=== PATIENT | female | born 1955 | race Caucasian/White ===

== ENCOUNTER → 2017-08-08 08:41 | Outpatient (CLI) | payer BC, SELFPAY ==
[2017-08-08 10:18] LABS: ALB/GLOB Ratio 1.1 RATIO (0.9-2.4); AST(SGOT) 38 U/L (15-37); Alanine Aminotransfer ALT/SGPT 32 U/L (13-56); Albumin, Serum 3.7 g/dL (3.2-5.0); Alkaline Phosphatase 98 U/L (45-117); Anion Gap 7 (5-15); BUN 23 mg/dL (7-18); Calcium,Total 8.9 mg/dL (8.5-10.1); Chloride 110 mmol/L (98-107); Creatinine, Serum 0.79 mg/dL (0.55-1.02); EST Glomerular Filtration Rate 78 mL/min (>60); Est Glom Filt Rate - Afr Amer 94 mL/min (>60); Globulin 3.4 g/dL (2.2-4.2); Glucose 87 mg/dL (74-106); Potassium 3.9 mmol/L (3.5-5.1); Protein, Total 7.1 g/dL (6.4-8.2); Sodium Level 144 mmol/L (136-145)
== END ==
PROVIDERS: Family Provider Family Medicine; PCP Family Medicine; Visit Provider Family Medicine
DX: E78.5 Hyperlipidemia, unspecified (principal)
CPT/HCPCS: 36415; 80053

== ENCOUNTER → 2017-11-27 16:11 | Outpatient (CLI) | payer BC, SELFPAY ==
[2017-11-27 18:04] LABS: Anion Gap 7 (5-15); BUN 14 mg/dL (7-18); BUN/Creat Ratio 16.6 RATIO (10-20); Calcium,Total 9.2 mg/dL (8.5-10.1); Chloride 109 mmol/L (98-107); Cholesterol 207 mg/dL (200); Creatinine, Serum 0.84 mg/dL (0.55-1.02); EST Glomerular Filtration Rate 73 mL/min (>60); Est Glom Filt Rate - Afr Amer 88 mL/min (>60); Glucose 89 mg/dL (74-106); High Density Lipoprotein 47 mg/dL; Potassium 4.1 mmol/L (3.5-5.1); Sodium Level 143 mmol/L (136-145); Thyroid Stim Hormone (TSH) 1.68 uIU/mL (0.358-3.74); Triglycerides 162 mg/dL; Very Low Density Lipoprotein 32 mg/dL (5-40)
[2017-11-27 18:11] LABS: Vitamin D,25 Hydroxy 41.5 ng/mL (29.95-100.01)
== END ==
PROVIDERS: Family Provider Family Medicine; PCP Family Medicine; Visit Provider Family Medicine
DX: Z00.00 Encounter for general adult medical examination without abnormal findings (principal)
CPT/HCPCS: 36415; 80048; 80061; 82306; 84443

== ENCOUNTER → 2018-01-02 10:15 | Outpatient (CLI) | payer BC, SELFPAY ==
--- NOTE | 2018-01-02 10:17 | BI_ITS ---
MAMMOGRAPHY - BILATERAL SCREENING REASON FOR EXAM: Female, 62 years old. Routine annual screening examination. PERTINENT HISTORY: Non-contributory. TECHNIQUE: Digital bilateral breast isabela (3D mammographic acquisition) in the CC and MLO projections. 2-D mediolateral oblique (MLO) and craniocaudad (CC) views of both breasts were obtained. CAD: Full Field Digital Mammography with Computer Added Detection was performed. COMPARISON: Comparison is made with prior study dated February 19, 2015 and September 18, 2012. FINDINGS: Breast Composition: There are scattered areas of fibroglandular density. There are no dominant masses or suspicious calcifications. Stable benign-appearing bilateral axillary lymph nodes. No other significant abnormalities are identified. There has been no significant change since the prior study. BI/SCREENING MAMM (CAD), BILAT IMPRESSION: Stable bilateral screening mammogram. Yearly follow-up mammogram recommended. (A) ASSESSMENT CATEGORY: BIRADS Category 2: Benign. A letter regarding these results will be sent to the patient by the facility within 30 days. Approximately 10% of breast cancers are not detected by mammography. A normal mammogram should not delay biopsy of a clinically suspicious abnormality. [id number] Electronically Signed: Sergio Cazares MD at 12:38 EDT Tel [phone], Service support ,
--- NOTE | 2018-01-02 10:23 | BD_ITS ---
STUDY: DUAL ENERGY X-RAY ABSORPTIOMETRY / DXA REASON FOR EXAM: Female, 62 years old. The patient is postmenopausal. Loss of height. TECHNIQUE: Bone Mineral Density (BMD) measurements of lumbar spine and bilateral hips were obtained. COMPARISON: Comparison is made with prior study dated October 28, 2012. FINDINGS: Lumbar Spine (L1-L4): g/cm2 (1.266) / T-score (0.7) / Z-score (2.1) Findings are suggestive of normal bone density with a low fracture risk. Left Femur Total: g/cm2 (1.114) / T-score (0.8) / Z-score (1.9) Left Femoral Neck: g/cm2 (1.013) / T-score (-0.2) / Z-score (1.2) Right Femur Total: g/cm2 (1.029) / T-score (0.2) / Z-score (1.2) Right Femoral Neck: g/cm2 (1.012) / T-score (-0.2) / Z-score (1.2) The T-Scores on the most recent prior examination were: Lumbar Spine (L1-L4): There has been worsening of bone density since the previous examination. Left Femur Total: which represents a worsening of 8.5%. Right Femur Total: which represents a worsening of 11.7%. BD/Dexa Bone Density Study IMPRESSION: The patient is considered normal as outlined below according to World Denny Organization (WHO) criteria with a low fracture risk. There has been worsening of bone density since the previous examination. Reference Information: The T-score is the number of standard deviations above or below the standard which is normal for young adults at their peak bone mineral density. The World Health Organization (WHO) interprets the T-scores as follows: Above -1 Normal bone density Between -1 and -2.5 Osteopenia Equal to / or below -2.5 Osteoporosis As a practical clinical guideline, osteopenia may be graded as follows: Mild -1 through -1.5 Moderate -1.6 through -2.0 Severe -2.1 through -2.4 The Z-score is the number of standard deviations above or below age-matched controls. A Z-score of less than -1.5 would be considered abnormal. References: 1. NIH Osteoporosis and Related Bone Diseases http://www.osteo.org 2. International Society for Clinical Densitometry http://www.iscd.org 3. National Osteoporosis Foundation http://www.nof.org Electronically Signed: Sergio Cazares MD at 13:20 EDT Tel [phone], Service support ,
== END ==
PROVIDERS: Family Provider Family Medicine; PCP Family Medicine; Visit Provider Family Medicine
DX: Z12.31 Encounter for screening mammogram for malignant neoplasm of breast (principal); Z78.0 Asymptomatic menopausal state
CPT/HCPCS: 77063; 77067; 77080

== ENCOUNTER → 2018-02-13 08:41 | Outpatient (CLI) | payer BC, SELFPAY ==
[2018-02-13 11:03] LABS: Anion Gap 7 (5-15); BUN 23 mg/dL (7-18); BUN/Creat Ratio 24.5 RATIO (10-20); Calcium,Total 8.8 mg/dL (8.5-10.1); Chloride 110 mmol/L (98-107); Cholesterol 231 mg/dL (200); Creatinine, Serum 0.94 mg/dL (0.55-1.02); EST Glomerular Filtration Rate 64 mL/min (>60); Est Glom Filt Rate - Afr Amer 78 mL/min (>60); Glucose 82 mg/dL (74-106); High Density Lipoprotein 48 mg/dL; Potassium 4.4 mmol/L (3.5-5.1); Sodium Level 143 mmol/L (136-145); Triglycerides 170 mg/dL; Very Low Density Lipoprotein 34 mg/dL (5-40)
== END ==
PROVIDERS: Family Provider Family Medicine; PCP Family Medicine; Visit Provider Family Medicine
DX: I10 Essential (primary) hypertension (principal)
CPT/HCPCS: 36415; 80048; 80061

== ENCOUNTER → 2018-12-01 09:56 | Outpatient (CLI) | payer BC, SELFPAY ==
[2018-12-01 13:08] LABS: Vitamin D,25 Hydroxy 30.7 ng/mL (29.95-100.01)
[2018-12-01 13:23] LABS: Anion Gap 6 (5-15); BUN 22 mg/dL (7-18); Calcium,Total 9.4 mg/dL (8.5-10.1); Chloride 108 mmol/L (98-107); Cholesterol 205 mg/dL (200); Creatinine, Serum 0.92 mg/dL (0.55-1.02); EST Glomerular Filtration Rate 66 mL/min (>60); Est Glom Filt Rate - Afr Amer 79 mL/min (>60); Glucose 87 mg/dL (74-106); High Density Lipoprotein 48 mg/dL; Potassium 4.3 mmol/L (3.5-5.1); Sodium Level 139 mmol/L (136-145); Triglycerides 155 mg/dL; Very Low Density Lipoprotein 31 mg/dL (5-40)
== END ==
PROVIDERS: Family Provider Family Medicine; PCP Family Medicine; Referring Provider Family Medicine; Visit Provider Family Medicine
DX: Z00.00 Encounter for general adult medical examination without abnormal findings (principal)
CPT/HCPCS: 36415; 80048; 80061; 82306

== ENCOUNTER → 2019-06-03 08:36 | Outpatient (CLI) | payer BC, SELFPAY ==
[2019-06-03 10:06] LABS: Absolute Lymphocyte Count 1.85 X10^3/uL (0.83-4.51); Absolute Neutrophil Count 3.3 X10^3/uL (2.0-7.7); Basophil# 0.08 X10^3/uL; Basophil% 1.3 % (0-1); Eosinophil# 0.35 X10^3/uL; Eosinophils% 5.8 % (0-5); Hematocrit 40.4 % (37-47); Hemoglobin 12.7 g/dL (12.0-15.0); Lymphocyte # 1.85 X10^3/ul (4.0); Lymphocyte % 30.5 % (19-41); Mean Corp Hgb Conc 31.4 g/dL (32-36); Mean Corpuscular Hgb 27.7 pg (27.0-32.0); Mean Corpuscular Volume 88.2 fL (81-99); Mean Platelet Vol. 10.4 fl (6.2-12.0); Monocyte# 0.45 X10^3/uL; Monocyte% 7.4 % (0-10); NRBC Flagged by Analyzer 0 % (0-5); Neutrophil # 3.33 X10^3/uL (2.7-7.7); Neutrophil % 54.8 % (47-70); Platelet Count 287 K/mm3 (150-450); RBC Distribution Width CV 13.7 % (11.6-14.6); Red Blood Count 4.58 M/mm3 (4.2-5.4); White Blood Count 6.1 K/mm3 (4.4-11.0)
[2019-06-03 10:36] LABS: Thyroid Stim Hormone (TSH) 2.68 uIU/mL (0.358-3.74)
== END ==
PROVIDERS: PCP Family Medicine; Referring Provider Family Medicine; Visit Provider Family Medicine
DX: R53.83 Other fatigue (principal)
CPT/HCPCS: 36415; 84443; 85025

== ENCOUNTER → 2019-12-02 09:33 | Outpatient (CLI) | payer MEDICARE, OTHER, SELFPAY ==
--- NOTE | 2019-12-02 09:39 | RAD_ITS ---
STUDY: X-RAY - RIGHT KNEE REASON FOR EXAM: Female, 64 years old. PAIN ENTIRE RIGHT KNEE FOR A LONG TIME GETTING WORSE, MOSTLY ANTERIORLY. NO KNOWN RECENT INJURY. TECHNIQUE: 4 view(s) of the knee. COMPARISON: Prior study of 02/23/2016 FINDINGS: Normal visualized distal femur. Normal visualized proximal tibia and fibula. Normal proximal tibiofibular articulation. There is severe degenerative arthrosis of the medial femorotibial compartment with severe joint space narrowing. There is moderate degenerative arthrosis of the lateral femorotibial compartment with moderate joint space narrowing. There is moderate degenerative arthrosis of the patellofemoral articulation. The soft tissue structures are unremarkable. RAD/Knee 4 or More Views IMPRESSION: Tricompartmental degenerative changes of the right knee most severely affecting the medial knee compartment. There is severe joint space narrowing of the medial knee compartment and moderately severe joint space narrowing of the lateral knee compartment. The degree of degenerative disease has slightly increased in severity from the previous study. Electronically Signed: Isrrael Keller MD at 17:11 EDT , Service support ,
[2019-12-02 12:43] LABS: Anion Gap 4 (5-15); BUN 17 mg/dL (7-18); BUN/Creat Ratio 20.7 RATIO (10-20); Chloride 109 mmol/L (98-107); Creatinine, Serum 0.82 mg/dL (0.55-1.02); EST Glomerular Filtration Rate 74 mL/min (>60); Est Glom Filt Rate - Afr Amer 90 mL/min (>60); Glucose 90 mg/dL (74-106); Sodium Level 141 mmol/L (136-145)
== END ==
PROVIDERS: PCP Family Medicine; Referring Provider Family Medicine; Visit Provider Family Medicine
DX: M17.10 Unilateral primary osteoarthritis, unspecified knee (principal); I10 Essential (primary) hypertension
CPT/HCPCS: 36415; 73564; 80048

== ENCOUNTER → 2020-02-12 13:13 | Outpatient (CLI) | payer MEDICARE, OTHER, SELFPAY ==
--- NOTE | 2020-02-12 13:17 | CT_ITS ---
STUDY: CT SCAN LOWER EXTREMITY RIGHT REASON FOR EXAM: Female, 64 years old. VARUS DEFORMITY, ASHLEY PROTOCOL RADIATION DOSAGE (If Supplied By Facility): CTDIvol = ( 18.76 ) mGy, DLP = ( 1432.85 ) mGycm. Individualized dose optimization techniques were used for this CT.? TECHNIQUE: Multiple axial tomographic images of the right hip joint, right knee joint and right ankle joints were obtained. COMPARISON: None. FINDINGS: Minimal narrowing of the right hip joint. No evidence of fracture or dislocation. There is a marked degree of joint space narrowing in the degeneration involving the medial compartment of the knee joint. Multiple small subchondral cysts are seen in the medial tibial plateau as well as the medial distal femoral condyle. There is also evidence of a moderate degree of joint space narrowing involving the lateral compartment of the knee joint with degenerative spur formation along the lateral aspect of the lateral femoral condyle. Moderate degree of joint space narrowing involving the patellofemoral joint with a spur formation along the anterior aspect of the distal femoral condyle. Multiple tiny cysts are seen in the patella. Imaging of the ankle joint demonstrates small plantar spurs. CT/Extremity Lower without Contra IMPRESSION: Moderate degree of joint space narrowing involving the medial compartment and knee joint as well as a moderate degree of joint space narrowing involving the lateral compartment and patellofemoral joint as described. Electronically Signed: Sergio Cazares, at 14:19 EST , Service support ,
== END ==
PROVIDERS: PCP Family Medicine; Referring Provider Specialist; Visit Provider Specialist
DX: M21.161 Varus deformity, not elsewhere classified, right knee (principal)
CPT/HCPCS: 73700

== ENCOUNTER 2020-03-02 07:14 | Day surgery (SDC) | payer MEDICARE, OTHER, SELFPAY ==
--- NOTE | 2020-02-14 18:38 | PCM.HP.BLA ---
History and Physical History and Physical Patient Name: Kiarra Ochoa : 1955 From: AMADOR BROOKS NP DATE OF SURGERY: 03/02/2020 SCHEDULED PROCEDURE: Right total knee arthroplasty HISTORY OF PRESENT ILLNESS: Preoperative history and physical exam was performed on February 12, 2020. This is a 64-year-old female whose been having ongoing right knee pain for over 2 years. The pain is 4 on a scale of 10 at best and 8 on a scale of 10 with activity. The pain is located along the medial joint line. The pain is made worse with stairs. Patient does report start up pain. The patient notes decreased range of motion in the right knee when compared to the left. The pain does wake her at night. The patient reports inability to perform activities of daily living including getting in and out of the bathtub. The patient underwent a right knee arthroscopy with anterior cruciate ligament repair in 2001. Previous conservative measures attempted consist of a rest, ice, heat, elevation with no relief. The patient has attempted corticosteroid injections and oral naproxen with no relief. The patient has a medical history pertinent for hypertension, hypercholesterolemia and depression. Surgical clearance will be obtained from her primary care provider Dr. Galloway. She denies chest pain, fevers, chills, shortness of breath, to call to breathing or recent infections. After failing conservative measures and discussing treatment options with Dr. Jose Babcock the patient does wish to proceed with a total knee arthroplasty. REVIEW OF SYSTEMS: ROS: Const: Denies anorexia, change in appetite, fever, difficulty sleeping and weight change. CV: Denies chest pain, heart murmur, irregular heartbeat and peripheral vascular disease. Resp: Denies asthma, cough, pneumonia, sleep apnea, shortness of breath, tuberculosis and wheezing. GI: Denies constipation, diarrhea, heartburn, nausea, rectal itching, bloody stools and vomiting. : Denies incontinence. Musculo: Reports pain, but denies leg swelling, trouble walking and weakness. Skin: Reports tattoo, but denies Raynaud's and history of shingles. Neuro: Denies ambulatory dysfunction, dizziness, numbness/tingling and tremor. Psych: Reports stress, but denies anxiety, depression, insomnia and mental illness. Julio C/Lymph: Denies anemia, bleeding/bruising tendency and past transfusion. Reviewed, no changes. PAST MEDICAL HISTORY: Advance Care Plan: No Advance Directives Effective Date: 01/28/2020 PMH: Medical Problems: High Blood Pressure, Hypercholesterolemia, Depression Accidents: None Surgical Hx: Appendectomy - WHILE IN HIGH SCHOOL/[facility] Hysterectomy - [facility]/ DR. JACKSON Knee ACL repair Rt - (2001) [facility] Anesthesia Complications: None Assistive Devices: Glasses Reviewed and updated. 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 Personal Habits: Cigarette Use: Never Smoked Cigarettes.Smokeless Tobacco: Never Used Smokeless Tobacco.E-Cigarette Use: Never used.Alcohol: Denies use.Drug Use: Denies Use.Enjoy Exercising: Exercises 1-3 x/month. Reviewed, no changes. VITALS: Ht: 64 Wt: 207lb Wt k.895 BMI: 35.5 BP: 152/80 Pulse: 98 Resp: 16 T: 97.7 T: 36.5C Pain Level: 4 ALLERGIES: No Known Drug Allergy MEDICATIONS: Oxycodone HCL 5 mg 1-2 tab by mouth every 4 hours, Meloxicam 7.5 mg 1 by mouth twice a day, Famotidine 20 mg 1 by mouth every day, Promethazine HCL 12.5 mg 1-2 tablets by mouth every 6 hours, Losartan Potassium 50 mg 1 by mouth every day, Fluoxetine HCL (PMDD) 20 mg 1 tab daily, Rosuvastatin Calcium 10 mg 1 by mouth every day, Complete Multi-Vitamin , Naproxen 220 mg 6 tablets daily, Aspirin 81 81 mg 1 po qd, Vitamin D3 125 mcg (5000 Ut) 1 po qd PRE-OP EXAM: General appearance:NORMAL Other: Eyes: Conjunctivae and lids: NORMAL Pupils: ERR Ears, Nose, Mouth, and Throat: NORMAL Other: Inspection of lips, teeth and gums: NORMAL Other: Respiratory: Assessment of respiratory effort: NORMAL Other: Auscultation of lungs: clear to auscultation no wheezes, rhonchi or rales. Cardiovascular: Auscultation of heart: regular rate and rhythm, no murmurs, gallops or rubs. Gastrointestinal: Exam of abdomen: soft, nontender, nondistended bowel sounds present. Neurological: see below Psychiatric: Orientation to time, place and person: NORMAL Other: Mood and affect: NORMAL Other: PHYSICAL EXAMINATION: The patient ambulates with a mild antalgic gait. Skin is warm, dry and intact. Moderate effusion. Fullness palpated in the posterior knee. Medial joint line pain and tenderness with palpation. Partially correctable varus alignment. Range of motion is lacks 22 of extension to 95 flexion. Sensation intact to saphenous, sural, deep and superficial peroneal and tibial nerve distributions. IMAGING STUDIES: 4 views of right knee including sunrise and lateral and bilateral weight-bearing AP and tunnel views obtained on January 28, 2020 reviewed reveals varus alignment and medial joint space narrowing, subchondral sclerosis, bony erosion of the medial tibial plateau and osteophyte formation consistent with stage IV erosive severe osteoarthritis. IMPRESSION: 1. Posttraumatic osteoarthritis, right knee 2. Hypertension 3. Hypercholesterolemia 4. Depression PLAN: Dr. Jose Babcock did discuss and review with the patient all treatment options including surgical versus nonsurgical. The patient does wish to proceed with the above-stated procedure. Potential risk, benefits and complications of the procedure were discussed in detail including but not limited to , infection, nerve and blood vessel damage, persistent pain, numbness, tingling, paresthesia, blood clot, pulmonary embolism and requirement for possible further surgery. The patient expressed full understanding and has no further questions for the doctor. The patient does agree to proceed with the above-stated procedure and has signed the surgery consent form. The patient was given prescriptions for the following medications at her preoperative visit: Famotidine, meloxicam, oxycodone and promethazine. She was instructed to picking belt operator [id number] extra strength Tylenol 500 mg, aspirin 81 mg and senna. The patient was instructed to bring a walker with her to the hospital the day of her surgery. Discussed with the patient the risks associated with the COVID-19 virus including the risk of exposure while at the hospital. The patient was reassured local hospitals have low infection rates and taken all necessary precautions to limit patient exposure to COVID-19. Limiting the patient's time in the hospital may decrease their exposure to COVID-19. The patient was notified that we will need to comply with any screening or testing the hospital wishes to perform and that surgery may be delayed for any positive test results. This dictation was created using voice recognition software. Phonetic and/or grammatical errors may exist. ___ I have re-examined the patient. There are no clinical changes since date of exam. ___ See progress notes for changes. ___ Dictated on admission Date: Time: Signature:
--- NOTE | 2020-02-24 10:06 | EKG12_ITS ---
Test Reason : PRE OP Blood Pressure : / mmHG Vent. Rate : 080 BPM Atrial Rate : 080 BPM P-R Int : 150 ms QRS Dur : 080 ms QT Int : 422 ms P-R-T Axes : 056 -33 -03 degrees QTc Int : 486 ms Normal sinus rhythm Left axis deviation Left ventricular hypertrophy Nonspecific ST and T wave abnormality Prolonged QT Abnormal ECG No previous ECGs available Confirmed by SUNSHINE WOODS, XIOMARA ([id number]), managing editor NATALYA PETERSON ([id number]) on 02/26/2020 10:57:47 AM Referred By: Jose Babcock Confirmed By:XIOMARA GONSALEZ MD
[2020-02-24 11:28] LABS: Absolute Lymphocyte Count 1.67 X10^3/uL (0.83-4.51); Absolute Neutrophil Count 3.4 X10^3/uL (2.0-7.7); Basophil# 0.06 X10^3/uL; Eosinophil# 0.37 X10^3/uL; Eosinophils% 6.2 % (0-5); Hematocrit 41.7 % (37-47); Hemoglobin 13.2 g/dL (12.0-15.0); Lymphocyte # 1.67 X10^3/ul (4.0); Lymphocyte % 28.1 % (19-41); Mean Corp Hgb Conc 31.7 g/dL (32-36); Mean Corpuscular Hgb 28.7 pg (27.0-32.0); Mean Corpuscular Volume 90.7 fL (81-99); Mean Platelet Vol. 10.5 fl (6.2-12.0); Monocyte# 0.47 X10^3/uL; Monocyte% 7.9 % (0-10); NRBC Flagged by Analyzer 0 % (0-5); Neutrophil # 3.36 X10^3/uL (2.7-7.7); Neutrophil % 56.5 % (47-70); Platelet Count 283 K/mm3 (150-450); RBC Distribution Width CV 13.2 % (11.6-14.6); RBC Distribution Width SD 43.4 fl (35.1-43.9)
[2020-02-24 12:15] LABS: Anion Gap 4 (5-15); BUN 19 mg/dL (7-18); BUN/Creat Ratio 22.5 RATIO (10-20); Calcium,Total 9.3 mg/dL (8.5-10.1); Chloride 109 mmol/L (98-107); Creatinine, Serum 0.84 mg/dL (0.55-1.02); EST Glomerular Filtration Rate 72 mL/min (>60); Est Glom Filt Rate - Afr Amer 87 mL/min (>60); Glucose 92 mg/dL (74-106); Potassium 4.2 mmol/L (3.5-5.1); Sodium Level 141 mmol/L (136-145)
[2020-03-02] VITALS (11 sets, daily range): BP systolic 88–144; BP diastolic 57–98; PULSE 72–92; RESP 16; TEMP 36.3–36.8; O2SAT 99–100; BMI 35.4
--- NOTE | 2020-03-02 07:08 | RAD_ITS ---
STUDY: X-RAY - RIGHT KNEE REASON FOR EXAM: Female, 64 years old. POST OP RIGHT KNEE TECHNIQUE: 2 view(s) of the knee. COMPARISON: None. FINDINGS: Normal visualized distal femur. Normal visualized proximal tibia and fibula. Normal proximal tibiofibular articulation. There is total knee replacement . Alignment is near-anatomic. There is postoperative change in the soft tissues. There are skin sabina. RAD/Knee 1 or 2 Views IMPRESSION: Right knee replacement. Electronically Signed: Bora Busby MD at 17:11 EST , Service support ,
[2020-03-02] MEDS: Lactated Ringers 1,000 ML 999 ML IV ×2 (08:00→10:43)
[2020-03-02] MEDS: Gabapentin 600 MG Tablet PO (08:15)
[2020-03-02] MEDS: Acetaminophen 500 MG Tablet 1000 MG PO (08:15)
[2020-03-02] MEDS: Scopolamine 1mg/72hr Patch 1 PATCH TRANSDERM. (08:16)
[2020-03-02 08:41] LABS: Bedside Glucose 88 mg/dL (70-110)
[2020-03-02] MEDS: Cefazolin 2 GM in 0.9% Normal Saline 100 ML IV (08:53)
[2020-03-02] MEDS: dexAMETHasone 10 MG/ML Vial IV (09:17)
--- NOTE | 2020-03-02 10:10 | OP.PCM_ITS ---
Report of Operation Date of Procedure: 03/02/20 Pre-Operative Diagnosis: Left knee primary osteoarthritis Post-Operative Diagnosis: Left knee primary osteoarthritis Surgery/Procedure Performed:: Left knee minimally invasive robotic assisted total knee replacement Description of Surgical Findings:: Stable knee with good patella tracking film or videotape editor: Marcial Crump Type of Anesthesia:: Spinal Anesthesiologist: Simone Hollins Special Medications: 2 g Ancef, 1 g TXA at incision, 1 g TXA closure, 10 mg Decadron, joint cocktail (5 mg Duramorph, 30 mL of 0.5% Ropivicaine, 1000 units of epinephrine, 30 mg of Toradol) Estimated Blood Loss (mL): 50 Fluids Replaced: 1000 L crystalloid Description of Procedure: Implants used: 1. [place] size 6 triathlon cruciate retaining distal femoral press-fit component 2. [place] size 4 press-fit tritanium tibial baseplate 3. [place] X3 9 mm CS polyethylene 4. [place] X3 29 mm asymmetric patella Brief history operative indications: 64-year-old f with history of left knee osteoarthritis with radiographic findings with loss of joint space, osteophyte formation and subchondral sclerosis. Failed conservative measures as mentioned in the H&P. Discussion of total knee arthroplasty as well as risk and benefits were discussed the patient including but not limited to blood loss, DVTs, PEs, neurovascular damage, general risk of anesthesia including loss of life, and stiffness or instability were discussed with patient. Patient demonstrated understanding and was able to sign informed consent. Procedure: On the date of procedure patient's left lower extremity was marked in the preoperative area. The patient was then taken back to the operating room where the patient was placed on the table in the supine position. All bony prominences were identified a well-padded. Anesthesia assumed control of the C-spine and airway and remained controlled throughout the remainder of the procedure. A tourniquet was placed on the left upper thigh and the leg was prepped in a sterile fashion. The surgeon then scrubbed at this time .Upon reentering the room left lower extremity was draped in a standard orthopedic fashion. A timeout was then called and everyone agreed upon the side, the site, the procedure to be performed, patient's identity and antibiotics given. Esmarch bandage was used to exsanguinate the extremity and the tourniquet was placed up to 250 mmHg with the knee in flexion. A midline skin incision was made and sharp dissection was taken down through skin subcutaneous tissue and fat. The standard medial parapatellar incision was made and the patella was subluxed laterally. An Appropriate deep MCL release was done and the fat pad was resected. Our attention was then directed to the patella. The patella was everted and a flat resection was made. The knee was then flexed up in 2 femoral pins were placed inside the incision and 2 tibial pins were placed outside the incision in the medial tibia bicortically. Once this was completed the 2 checkpoints in the femur and tibia were placed. Knee was then flexed up and the bony landmarks were registered. Once this was completed knee was taken through range of motion and manually stressed allowing us to a plan for an appropriate tibial cut. The robotic arm was brought into the field sterilely and checkpoint and saw were registered. Based on the patient's deformity the tibial cut was made 3 degrees varus. At this time the tensioner was then placed in the joint and ligament tension was checked at 90 degrees and full extension. Based on the patient's ligamentous tension appropriate adjustments were made to the operative plan and ligament releases were done. Once we were happy with our operative plan with balanced flexion and extension gaps our attention was directed to the femur. The robot was brought into the field sterilely and registered. Posterior condylar cuts, anterior chamfer cuts and anterior cuts were appropriately made for a size 3 femur. When these were completed the saws were switched out in the distal femoral and posterior chamfer cuts were made. Protecting the soft tissue throughout this time. A size 4 tibial base plate was selected. the knee was flexed to 90 degrees and the soft tissues and posterior osteophytes were removed from the joint. 40 cc of the periarticular injection was injected into the posterior medial corner of the joint. The appropriate trials were then placed on the femur and tibia. A trial poly ethylene was trialed to ensure proper balancing and stability of the knee. The appropriate tibial internal rotation was then marked with a bovie. Our attention was then directed to the patella. The lug holes were drilled and the patella trial was placed. Patellar tracking was checked and deemed appropriate. Once we were happy lug holes were drilled for the femur and trial components were removed. the tibia was subluxed and pinned into place and the keel was punched and drilled appropriately. Final components were verified and opened, and cement was mixed in a vacuum. [employer] Simplex cement was used. The wound was copiously irrigated with normal saline. When the cement was ready the components were impacted into place starting with the tibia, femur and finally cementing the patella. The trial poly component was placed and the knee was placed in full extension. All excess cement was removed in the process. Once the cement had cured the tracking, alignment and balance were verified and a size 9 mm CS polyethylene component was placed. Once the final components were placed an Irrisept lavage was performed and the wound was copiously irrigated with normal saline solution and the periarticular injection was given. The wound was closed in a layer caicedo fashion using #1 vicryl interrupted sutures for the arthrotomy, 2-0 interrupted Vicryl suture for the subcuticular layer and sabina for final skin closure. A sterile compressive dressing was then placed. The patient was then awakened from anesthesia, transferred to the [facility] and transferred to the PACU for recovery. Post op plan DVT ppx: ASA 81mg BID, thigh high compression stockings Follow up: in office in 2 weeks for wound check PT: to start POD #0 at hospital, outpatient PT should be arranged. - Complications No intraoperative complications - Admit VTE Documentation VTE Present on Admission: No VTE Mechan Device Prophylaxis: SCD's, Thigh High MALVIN Hose VTE Pharm Prophylaxis ordered?: Yes
[2020-03-02] MEDS: Lactated Ringers 1,000 ML 125 ML IV (12:01)
[2020-03-02] MEDS: Cefazolin 1 GM/50 ML BAG IV (12:30)
== END 2020-03-02 14:04 | disposition home or self-care (01) ==
LOC: SDC 07:15 → AC 07:15
PROVIDERS: Anesthesiology; PCP Family Medicine; Referring Provider Specialist; Visit Provider Specialist
PROC: 0SRC0JZ Replacement of Right Knee Joint with Synthetic Substitute, Open Approach (ICD-10-PCS; CPT 27447; principal; 2020-03-02 08:45)
DX: M17.32 Unilateral post-traumatic osteoarthritis, left knee (principal); I10 Essential (primary) hypertension; E11.9 Type 2 diabetes mellitus without complications; E78.00 Pure hypercholesterolemia, unspecified; F32.9 Major depressive disorder, single episode, unspecified; Z79.1 Long term (current) use of non-steroidal anti-inflammatories (NSAID); Z79.82 Long term (current) use of aspirin; Z79.899 Other long term (current) drug therapy; Z20.828 Contact with and (suspected) exposure to other viral communicable diseases
CPT/HCPCS: 01402; 27447; 36415; 73560; 80048; 82962; 83735; 85025; 87081; 87426; 93005; 97162; C1776; C9803; J7120; J2405

== ENCOUNTER → 2020-03-16 11:27 | Outpatient (CLI) | payer MEDICARE, OTHER, SELFPAY ==
[2020-03-02 07:48] VITALS: BMI 35.4
--- NOTE | 2020-03-16 11:29 | VDLE_ITS ---
Reason For Study: PAIN RIGHT LEFT GSV is normal. CFV is compressible, spontaneous, phasic, CFV is compressible, spontaneous, phasic, competent, and demonstrates normal competent and demonstrates normal augmentation. augmentation. FV is compressible, spontaneous, phasic, competent and demonstrates normal augmentation. POP V is compressible, spontaneous, phasic, competent and demonstrates normal augmentation. T/P Trunk is compressible. PTV is compressible. RT PerV is compressible. Procedure This is a venous duplex using B-mode, color flow and spectral Doppler. Exam performed in department. The exam was diagnostic. A preliminary report was called and/or faxed to Radha Acosta NP-C @[phone] @ 11:50 am. Interpretation Summary Deep veins of the right lower extremity are patent and compressible segmentally. There is no evidence of right lower extremity deep vein thrombosis. Valvular competence appears intact within the proximal deep venous system on the right . The right great saphenous vein appears patent and compressible segmentally. Ordering Physician: Radha Acosta Referring Physician: Shashank Morgan Performed By: Padmaja العراقي, FATIMAH, RVT
== END ==
PROVIDERS: PCP Family Medicine; Referring Provider Registered Nurse; Visit Provider Registered Nurse
DX: M79.661 Pain in right lower leg (principal)
CPT/HCPCS: 93971

== ENCOUNTER → 2020-06-03 09:53 | Outpatient (CLI) | payer MEDICARE, OTHER, SELFPAY ==
[2020-03-02 07:48] VITALS: BMI 35.4
[2020-06-03 13:11] LABS: AST(SGOT) 40 U/L (15-37); Alanine Aminotransfer ALT/SGPT 37 U/L (13-56); Albumin, Serum 3.7 g/dL (3.2-5.0); Alkaline Phosphatase 101 U/L (45-117); Anion Gap 8 (5-15); BUN 17 mg/dL (7-18); BUN/Creat Ratio 19.7 RATIO (10-20); Calcium,Total 9.3 mg/dL (8.5-10.1); Chloride 109 mmol/L (98-107); Cholesterol 217 mg/dL (200); Creatinine, Serum 0.86 mg/dL (0.55-1.02); EST Glomerular Filtration Rate 70 mL/min (>60); Est Glom Filt Rate - Afr Amer 85 mL/min (>60); Globulin 3.7 g/dL (2.2-4.2); Glucose 83 mg/dL (74-106); High Density Lipoprotein 60 mg/dL; Potassium 4.4 mmol/L (3.5-5.1); Protein, Total 7.4 g/dL (6.4-8.2); Sodium Level 141 mmol/L (136-145); Triglycerides 129 mg/dL; Very Low Density Lipoprotein 26 mg/dL (5-40)
== END ==
PROVIDERS: PCP Family Medicine; Referring Provider Family Medicine; Visit Provider Family Medicine
DX: E78.5 Hyperlipidemia, unspecified (principal)
CPT/HCPCS: 36415; 80053; 80061

== ENCOUNTER → 2020-12-02 09:57 | Outpatient (CLI) | payer MEDICARE, OTHER, SELFPAY ==
[2020-12-02 12:38] LABS: Anion Gap 5 (5-15); BUN 16 mg/dL (7-18); BUN/Creat Ratio 19.4 RATIO (10-20); Calcium,Total 8.9 mg/dL (8.5-10.1); Chloride 110 mmol/L (98-107); Cholesterol 211 mg/dL (200); Creatinine, Serum 0.82 mg/dL (0.55-1.02); EST Glomerular Filtration Rate 74 mL/min (>60); Est Glom Filt Rate - Afr Amer 89 mL/min (>60); Glucose 86 mg/dL (74-106); High Density Lipoprotein 50 mg/dL; Potassium 4.2 mmol/L (3.5-5.1); Sodium Level 141 mmol/L (136-145); Triglycerides 162 mg/dL; Very Low Density Lipoprotein 32 mg/dL (5-40)
== END ==
PROVIDERS: PCP Family Medicine; Visit Provider Family Medicine
DX: E78.5 Hyperlipidemia, unspecified (principal)
CPT/HCPCS: 36415; 80048; 80061

== ENCOUNTER → 2020-12-19 11:02 | Outpatient (CLI) | payer MEDICARE, OTHER, SELFPAY ==
--- NOTE | 2020-12-19 11:04 | RAD_ITS ---
STUDY: X-RAY - LEFT ANKLE REASON FOR EXAM: Female, 65 years old. L ankle pain TECHNIQUE: 3 view(s) of the ankle. COMPARISON: None. FINDINGS: Normal visualized distal tibia and fibula. Normal medial and lateral malleoli. Normal tibiotalar articulation and ankle mortise. Plantar spur. The visualized subtalar, talonavicular, calcaneocuboid and tarsal articulations are normal. Soft tissue swelling. RAD/Ankle min 3 Views IMPRESSION: Swelling of the foot. Plantar spur. Electronically Signed: Sergio Cazares MD at 12:17 EDT , Service support ,
== END ==
PROVIDERS: PCP Family Medicine; Referring Provider Family Medicine; Visit Provider Family Medicine
DX: M25.572 Pain in left ankle and joints of left foot (principal)
CPT/HCPCS: 73610

== ENCOUNTER 2021-06-05 09:57 | Outpatient (CLI) | payer MEDICARE, OTHER, SELFPAY ==
[2021-06-05 12:36] LABS: ALB/GLOB Ratio 0.9 RATIO (0.9-2.4); AST(SGOT) 36 U/L (15-37); Alanine Aminotransfer ALT/SGPT 31 U/L (13-56); Albumin, Serum 3.4 g/dL (3.2-5.0); Alkaline Phosphatase 93 U/L (45-117); Anion Gap 5 (5-15); BUN 20 mg/dL (7-18); BUN/Creat Ratio 23.4 RATIO (10-20); Calcium,Total 8.8 mg/dL (8.5-10.1); Chloride 110 mmol/L (98-107); Cholesterol 215 mg/dL (200); Creatinine, Serum 0.86 mg/dL (0.55-1.02); EST Glomerular Filtration Rate 71 mL/min (>60); Est Glom Filt Rate - Afr Amer 85 mL/min (>60); Globulin 3.6 g/dL (2.2-4.2); Glucose 91 mg/dL (74-106); High Density Lipoprotein 48 mg/dL; Potassium 4.1 mmol/L (3.5-5.1); Sodium Level 142 mmol/L (136-145); Triglycerides 162 mg/dL; Very Low Density Lipoprotein 32 mg/dL (5-40)
== END 2021-06-05 23:59 | disposition home or self-care (01) ==
LOC: MFPLAB 10:00
PROVIDERS: PCP Family Medicine; Referring Provider Family Medicine; Visit Provider Family Medicine
DX: E78.5 Hyperlipidemia, unspecified (principal)
CPT/HCPCS: 36415; 80053; 80061

== ENCOUNTER → 2021-12-04 | Outpatient (CLI) | payer MEDICARE, OTHER, SELFPAY ==
[2021-12-04 12:33] LABS: Anion Gap 6 (5-15); BUN 18 mg/dL (7-18); BUN/Creat Ratio 18.1 RATIO (10-20); Calcium,Total 9.2 mg/dL (8.5-10.1); Chloride 107 mmol/L (98-107); Cholesterol 195 mg/dL (200); EST Glomerular Filtration Rate 59 mL/min (>60); Est Glom Filt Rate - Afr Amer 71 mL/min (>60); Glucose 92 mg/dL (74-106); High Density Lipoprotein 47 mg/dL; Potassium 4.1 mmol/L (3.5-5.1); Sodium Level 140 mmol/L (136-145); Triglycerides 143 mg/dL; Very Low Density Lipoprotein 29 mg/dL (5-40)
== END | disposition home or self-care (01) ==
PROVIDERS: PCP Family Medicine; Referring Provider Family Medicine; Visit Provider Family Medicine
DX: I10 Essential (primary) hypertension (principal)
CPT/HCPCS: 36415; 80048; 80061

== ENCOUNTER → 2022-06-22 | Outpatient (CLI) | payer MEDICARE, OTHER, SELFPAY ==
[2022-06-22 18:34] LABS: ALB/GLOB Ratio 1.1 RATIO (0.9-2.4); AST(SGOT) 42 U/L (15-37); Alanine Aminotransfer ALT/SGPT 36 U/L (13-56); Alkaline Phosphatase 91 U/L (45-117); Anion Gap 7 (5-15); BUN 22 mg/dL (7-18); BUN/Creat Ratio 23.4 RATIO (10-20); Calcium,Total 9.4 mg/dL (8.5-10.1); Chloride 110 mmol/L (98-107); Cholesterol 226 mg/dL (200); Creatinine, Serum 0.94 mg/dL (0.55-1.02); EST Glomerular Filtration Rate 63 mL/min (>60); Est Glom Filt Rate - Afr Amer 76 mL/min (>60); Globulin 3.6 g/dL (2.2-4.2); Glucose 89 mg/dL (74-106); High Density Lipoprotein 49 mg/dL; Potassium 4.1 mmol/L (3.5-5.1); Protein, Total 7.6 g/dL (6.4-8.2); Sodium Level 142 mmol/L (136-145); Triglycerides 197 mg/dL; Very Low Density Lipoprotein 39 mg/dL (5-40)
== END | disposition home or self-care (01) ==
LOC: MFPLAB 15:42
PROVIDERS: PCP Family Medicine; Referring Provider Family Medicine; Visit Provider Family Medicine
DX: E78.5 Hyperlipidemia, unspecified (principal)
CPT/HCPCS: 36415; 80053; 80061

== ENCOUNTER → 2022-12-26 | Outpatient (CLI) | payer MEDICARE, OTHER, SELFPAY ==
[2022-12-26 12:43] LABS: Anion Gap 3 (5-15); BUN 15 mg/dL (7-18); BUN/Creat Ratio 15.8 RATIO (10-20); Calcium,Total 9.2 mg/dL (8.5-10.1); Chloride 111 mmol/L (98-107); Cholesterol 219 mg/dL (200); Creatinine, Serum 0.95 mg/dL (0.55-1.02); EST Glomerular Filtration Rate 62 mL/min (>60); Est Glom Filt Rate - Afr Amer 75 mL/min (>60); Glucose 90 mg/dL (74-106); High Density Lipoprotein 43 mg/dL; Potassium 4.4 mmol/L (3.5-5.1); Sodium Level 141 mmol/L (136-145); Triglycerides 168 mg/dL; Very Low Density Lipoprotein 34 mg/dL (5-40)
== END | disposition home or self-care (01) ==
LOC: MFPLAB 10:58
PROVIDERS: PCP Family Medicine; Visit Provider Family Medicine
DX: I10 Essential (primary) hypertension (principal)
CPT/HCPCS: 36415; 80048; 80061

== ENCOUNTER → 2023-06-26 | Outpatient (CLI) | payer MEDICARE, OTHER, SELFPAY ==
[2023-06-26 12:56] LABS: Anion Gap 6 (5-15); BUN 19 mg/dL (7-18); BUN/Creat Ratio 20.4 RATIO (10-20); Calcium,Total 9.8 mg/dL (8.5-10.1); Chloride 109 mmol/L (98-107); Cholesterol 201 mg/dL (200); Creatinine, Serum 0.93 mg/dL (0.55-1.02); EST Glomerular Filtration Rate 63 mL/min (>60); Est Glom Filt Rate - Afr Amer 77 mL/min (>60); Glucose 98 mg/dL (74-106); High Density Lipoprotein 49 mg/dL; Potassium 4.5 mmol/L (3.5-5.1); Sodium Level 142 mmol/L (136-145); Triglycerides 123 mg/dL; Very Low Density Lipoprotein 25 mg/dL (5-40)
== END | disposition home or self-care (01) ==
LOC: MFPLAB 09:48
PROVIDERS: PCP Family Medicine; Visit Provider Family Medicine
DX: I10 Essential (primary) hypertension (principal)
CPT/HCPCS: 36415; 80048; 80061

== ENCOUNTER → 2023-12-27 | Outpatient (CLI) | payer MEDICARE, OTHER, SELFPAY ==
--- NOTE | 2023-12-27 12:34 | BD_ITS ---
STUDY: DUAL ENERGY X-RAY ABSORPTIOMETRY / DXA REASON FOR EXAM: Female, 68 years old. V76.12ScreeningBONE DENSITY REASON FOR EXAM TECHNIQUE: Bone Mineral Density (BMD) measurements of lumbar spine and bilateral hips were obtained. COMPARISON: Comparison is made with prior study January 02, 2018. FINDINGS: Lumbar Spine (L1-L4): g/cm2 (1.063) / T-score (0.1) / Z-score (2.2) Findings are suggestive of normal bone density with a low fracture risk. Left Femur Total: g/cm2 (0.998) / T-score (0.5) / Z-score (1.9) Left Femoral Neck: g/cm2 (0.671) / T-score (-1.6) / Z-score (0.1) Right Femur Total: g/cm2 (0.973) / T-score (0.3) / Z-score (1.7) Right Femoral Neck: g/cm2 (0.691) / T-score (-1.4) / Z-score (0.3) The T-Scores on the most recent prior examination were: Lumbar Spine (L1-L4): There has been worsening of bone density since the previous examination. Left Femur Total: which represents a worsening of 4.4%. Right Femur Total: which represents an improvement of 1.2%. BD/Dexa Bone Density Study IMPRESSION: The patient is considered osteopenic as outlined below according to World Denny Organization (WHO) criteria with a moderate fracture risk. There has been worsening of bone density since the previous examination. Reference Information: The T-score is the number of standard deviations above or below the standard which is normal for young adults at their peak bone mineral density. The World Health Organization (WHO) interprets the T-scores as follows: Above -1 Normal bone density Between -1 and -2.5 Osteopenia Equal to / or below -2.5 Osteoporosis As a practical clinical guideline, osteopenia may be graded as follows: Mild -1 through -1.5 Moderate -1.6 through -2.0 Severe -2.1 through -2.4 The Z-score is the number of standard deviations above or below age-matched controls. A Z-score of less than -1.5 would be considered abnormal. References: 1. NIH Osteoporosis and Related Bone Diseases www osteo.org 2. International Society for Clinical Densitometry www iscd.org 3. National Osteoporosis Foundation www nof.org Electronically Signed: Sergio Cazares MD at 9:30 EDT ,
--- NOTE | 2023-12-27 12:34 | BI_ITS ---
MAMMOGRAPHY - BILATERAL SCREENING REASON FOR EXAM: Female, 68 years old. Routine annual screening examination. PERTINENT HISTORY: Non-contributory. TECHNIQUE: Digital bilateral breast nima (3D mammographic acquisition) in the CC and MLO projections. 2-D mediolateral oblique (MLO) and craniocaudad (CC) views of both breasts were obtained. CAD: Full Field Digital Mammography with Computer Added Detection was performed. COMPARISON: Comparison is made with prior study January 02, 2018 and February 19, 2015. FINDINGS: Breast Composition: There are scattered areas of fibroglandular density. There are no dominant masses or suspicious calcifications. There is a 8.6 mm x 7 mm fat-containing nodule with minimal peripheral calcification in the anterior upper medial aspect of the right breast. There is also evidence of a 9.2 mm x 9.4 mm well-defined fat-containing nodule with peripheral calcification in the anterior upper lateral aspect of the right breast. Stable scattered bilateral microcalcifications. No other significant abnormalities are identified. BI/SCRN MAMM (CAD)W/NIMA BILAT IMPRESSION: Stable bilateral screening mammogram. Yearly follow-up mammogram recommended. (A) ASSESSMENT CATEGORY: BIRADS Category 2: Benign. A letter regarding these results will be sent to the patient by the facility within 30 days. Approximately 10% of breast cancers are not detected by mammography. A normal mammogram should not delay biopsy of a clinically suspicious abnormality. [id number] Electronically Signed: Sergio Cazares MD at 9:08 EDT ,
== END | disposition home or self-care (01) ==
LOC: OPBD 12:32
PROVIDERS: PCP Family Medicine; Referring Provider Registered Nurse; Visit Provider Registered Nurse
DX: Z12.31 Encounter for screening mammogram for malignant neoplasm of breast (principal); Z13.820 Encounter for screening for osteoporosis; Z78.0 Asymptomatic menopausal state
CPT/HCPCS: 77063; 77067; 77080

== ENCOUNTER → 2024-01-03 | Outpatient (CLI) | payer MEDICARE, OTHER, SELFPAY ==
[2024-01-03 13:35] LABS: AST(SGOT) 47 U/L (15-37); Alanine Aminotransfer ALT/SGPT 40 U/L (13-56); Albumin, Serum 3.8 g/dL (3.2-5.0); Alkaline Phosphatase 78 U/L (45-117); Anion Gap 4 (5-15); BUN 18 mg/dL (7-18); BUN/Creat Ratio 18.5 RATIO (10-20); Calcium,Total 9.9 mg/dL (8.5-10.1); Chloride 109 mmol/L (98-107); Cholesterol 225 mg/dL (200); Creatinine, Serum 0.98 mg/dL (0.55-1.02); EST Glomerular Filtration Rate 60 mL/min (>60); Est Glom Filt Rate - Afr Amer 73 mL/min (>60); Globulin 3.9 g/dL (2.2-4.2); Glucose 90 mg/dL (74-106); High Density Lipoprotein 54 mg/dL; Potassium 4.2 mmol/L (3.5-5.1); Protein, Total 7.7 g/dL (6.4-8.2); Sodium Level 141 mmol/L (136-145); Triglycerides 177 mg/dL; Very Low Density Lipoprotein 35 mg/dL (5-40)
== END | disposition home or self-care (01) ==
LOC: MTLAB 10:52
PROVIDERS: PCP Family Medicine; Referring Provider Family Medicine; Visit Provider Family Medicine
DX: I10 Essential (primary) hypertension (principal)
CPT/HCPCS: 36415; 80053; 80061

== ENCOUNTER → 2024-07-01 | Outpatient (CLI) | payer MEDICARE, OTHER, SELFPAY ==
[2024-07-01 12:49] LABS: Absolute Lymphocyte Count 1.97 X10^3/uL (0.83-4.51); Absolute Neutrophil Count 4.8 X10^3/uL (2.0-7.7); Basophil% 1.3 % (0-1); Eosinophil# 0.41 X10^3/uL; Eosinophils% 5.3 % (0-5); Hematocrit 42.7 % (37-47); Hemoglobin 13.9 g/dL (12.0-15.0); Lymphocyte # 1.97 X10^3/ul (0.83-4.51); Lymphocyte % 25.3 % (19-41); Mean Corp Hgb Conc 32.6 g/dL (32-36); Mean Platelet Vol. 10.6 fl (6.2-12.0); Monocyte# 0.45 X10^3/uL; Monocyte% 5.8 % (0-10); NRBC Flagged by Analyzer 0 % (0-5); Neutrophil # 4.84 X10^3/uL (2.7-7.7); Neutrophil % 61.9 % (47-70); Platelet Count 291 K/mm3 (150-450); RBC Distribution Width CV 13.4 % (11.6-14.6); RBC Distribution Width SD 43.7 fl (35.1-43.9); White Blood Count 7.8 K/mm3 (4.4-11.0)
[2024-07-01 13:21] LABS: ALB/GLOB Ratio 1.3 RATIO (0.9-2.4); AST(SGOT) 41 U/L (<=31); Alanine Aminotransfer ALT/SGPT 21 U/L (<=34); Albumin, Serum 4.1 g/dL (3.4-4.8); Alkaline Phosphatase 87 U/L (35-104); Anion Gap 13 (5-15); BUN 17 mg/dL (4-19); BUN/Creat Ratio 16.9 RATIO (10-20); Calcium,Total 9.8 mg/dL (7.6-11.0); Carbon Dioxide 22.7 mmol/L (21.0-32.0); Chloride 107 mmol/L (98-108); Cholesterol 206 mg/dL (<=200); EST Glomerular Filtration Rate 61 (>60); Globulin 3.2 g/dL (2.2-4.2); Glucose 91 mg/dL (70-99); High Density Lipoprotein 49 mg/dL; Low Density Lipoprotein Calc. 126 mg/dL; Potassium 4.4 mmol/L (3.3-5.1); Protein, Total 7.3 g/dL (5.9-8.4); Sodium Level 142 mmol/L (133-145); Triglycerides 157 mg/dL; Very Low Density Lipoprotein 31 mg/dL (5-40); cholesterol:hdl ratio screen 4.22
== END | disposition home or self-care (01) ==
PROVIDERS: PCP Family Medicine; Referring Provider Family Medicine; Visit Provider Family Medicine
DX: E78.5 Hyperlipidemia, unspecified (principal); R53.83 Other fatigue
CPT/HCPCS: 36415; 80053; 80061; 85025

== ENCOUNTER 2024-08-09 11:38 | Inpatient (IN) | payer MEDICARE, OTHER, SELFPAY ==
[2024-08-09] VITALS (8 sets, daily range): BP systolic 144–192; BP diastolic 69–92; PULSE 72–101; RESP 16–19; TEMP 36.3–36.7; O2SAT 97–99; BMI 26.7; BMI 35.2
--- NOTE | 2024-08-09 12:06 | EKG12_ITS ---
Test Reason : NEURO SX Blood Pressure : */* mmHG Vent. Rate : 74 BPM Atrial Rate : 74 BPM P-R Int : 158 ms QRS Dur : 90 ms QT Int : 378 ms P-R-T Axes : 45 -35 -17 degrees QTcB Int : 419 ms Sinus rhythm with Fusion complexes Left axis deviation Moderate voltage criteria for LVH, may be normal variant ( R in aVL , Mayco product ) Nonspecific T wave abnormality Abnormal ECG Confirmed by Prince Horton ([id number]), order editor NATALYA PETERSON ([id number]) on 08/14/2024 1:03:51 PM Referred By: BERENICE/KARTHIK Confirmed By: Prince Horton
--- NOTE | 2024-08-09 12:06 | CT_ITS ---
PROCEDURE: CTA HEAD AND NECK W/ CONTRAST 08/09/2024 REASON FOR EXAM: ACUTE VISION LOSS IN LEFT EYE TECHNIQUE: CTA imaging of the head and neck from the aortic arch to the skull vertex with out contrast and with intravenous contrast. Multiplanar and multisequence images were obtained. 3D post processing was performed CONTRAST: Isovue 370 VOLUME: 100 mL One or more dose reduction techniques were used (e.g., Automated exposure control, adjustment of the mA and/or kV according to patient size, use of iterative reconstruction technique). RADIATION DOSE SUMMARY: CTDlvol: 30 mGy DLP: 800 mGycm COMPARISON: Same-day CT head. FINDINGS: Standard three-vessel aortic arch. No significant calcific plaque. The bilateral vertebral arteries are widely patent without focal stenosis or occlusion. Mixed calcific plaque of the bilateral cervical carotid arteries without focal stenosis or occlusion by NASCET criteria. Calcific plaque of the bilateral carotid siphons without focal stenosis or occlusion. The bilateral anterior, middle and posterior cerebral arteries are widely patent. Calcific plaque of the V4 segment of the right vertebral artery resulting in mild narrowing. No aneurysm or AVM. Major venous structures: Unremarkable. Atretic right transverse sinus, a normal variant. Other findings: Cervical spondylosis. Opacification of a few right ethmoid air cells. CT/CTA Head AND Neck W/ Contrast IMPRESSION: No large vessel occlusion, AVM or aneurysm. Reading Location: [facility]
--- NOTE | 2024-08-09 12:06 | CT_ITS ---
EXAM: STROKE BRAIN/HEAD WITHOUT CONT CLINICAL HISTORY: 68 y/o F with NEURO DEFICIT, ACUTE, STROKE SUSPECTED. COMPARISON: None. TECHNIQUE: Routine CT imaging of the head without IV contrast. Additional multiplanar reformats were obtained. Dose reduction techniques were used including intermediate exposure control (AEC),iterative reconstruction technique, and/or mA and/or KV dose adjustments based on patient's size. FINDINGS: The ventricles and subarachnoid spaces are age-appropriate. Mild scattered supratentorial white matter hypodensities. The chambers-white matter interfaces are otherwise maintained. No acute intracranial herniation or hemorrhage. Prior ocular lens replacements. The mastoids and visualized paranasal sinuses are well-aerated. No acute calvarial fracture or scalp hematoma. CT/STROKE Brain/Head without Cont IMPRESSION: No acute intracranial finding. Reading Location: [id number]
--- NOTE | 2024-08-09 12:08 | EDS_ITS ---
HPI History of Present Illness Chief Complaint: Eye Problem [facility] Medical History (Updated 08/09/24 @ 12:19 by Nalini Anthony) Cataract Hypertension Home Medications ?Medication ?Instructions ?Recorded ?Last Taken ?Type aspirin 81 mg tablet,delayed 81 mg PO DAILY 02/16/20 0 08/09/24 History release fluoxetine 20 mg capsule 20 mg PO DAILY 02/16/2007/31 History multivitamin with minerals 1 ea PO DAILY 02/16/2007/31 History naproxen sodium 220 mg capsule 660 mg PO BID 02/16/20 08/09/24 History ascorbic acid (vitamin C) 500 mg 500 mg PO DAILY 08/0908/09/24 History tablet calcium carbonate 520 mg PO DAILY 08/09/2407/31 History cholecalciferol (vitamin D3) 125 125 mcg PO DAILY 07/3108/09/24 History mcg (5,000 unit) tablet (Vitamin D3) losartan 100 mg tablet 100 mg PO DAILY 08/09/2407/31 History rosuvastatin 20 mg tablet 20 mg PO DAILY 08/09/2407/31 History Allergy/AdvReac Type Severity Reaction Status Date / Time No Known Allergies Allergy Verified 08/09/24 11:42 Social History Smoking Status: Never smoker EXAM Physical Exam Const Vital Signs: 08/09/24 11:39 Temperature 97.3 F L Temperature Source Oral Pulse Rate 101 H Respiratory Rate 19 H Blood Pressure 192/86 H Blood Pressure Mean 121 Pulse Ox 98 Oxygen Delivery Method Room Air [facility] Narrative Medical decision making narrative: HISTORY OF PRESENT ILLNESS: Chief complaint: Painless vision loss in left eye 68-year-old female presents with painless vision loss in left eye. This occurred when she awoke from sleep this morning at 4 AM. Her last known well was 11 PM on 08/08/2024. Denies any falls or trauma. Denies any other focal neurologic deficits including facial drooping, slurred speech, incoordination, loss of movement or sensation in the extremities. No history of stroke. No history of high blood pressure high cholesterol. No recent trauma. No fevers or chills or neck stiffness. REVIEW OF SYSTEMS: Pertinent positives: monocular Vision loss Pertinent negatives: XIE PHYSICAL EXAM: Nursing triage notes reviewed, Vital signs reviewed Constitutional: please see mdm HENT: MMM, no temporal artery tenderness Eyes: Pupils equal round and reactive to light, Extraocular muscles intact Neck: No stridor, no JVD, full neck ROM Lungs: Clear to auscultation, No wheezing or rales. No increased work of breathing, no conversational dyspnea, no accessory muscle use, no nasal flaring. No respiratory distress noted Heart: Regular rate and rhythm, No murmurs, No rubs and No gallops, 2+ distal pulses (radial, femoral, posterior tibial) in all extremities Abdomen: Soft, there is no tenderness, rigidity, rebound or guarding, no obvious peritoneal signs, no palpable pulsatile abdominal masses, no auscultated abdominal bruit : No CVAT Extremities: No edema Neuro: Alert, oriented for space and time, cannot perceive light in left eye, extraocular muscles intact, complete vision loss in left eye chemo visual olson unable to be tested in the left. Remainder of cranial nerves intact. Full strength and sensation in extremities. No signs of ataxia. NIH of 2 for visual loss in left eye. Skin: No rash or lesions noted MEDICAL DECISION MAKING: Chief Complaint: please see HPI External records reviewed: Reviewed prior imaging studies Factors affecting care: hypertension, hyperlipidemia Social determinants of health: denies illicit drug use History obtained from others: Consults: Ophthalmology (Dr. Mireles) Stroke Neurology (Dr. Roberts) recommended against transfer, TNK or thrombectomy Internal Medcine (Dr. Martinez) [facility] Narrative: The patient was initially hypertensive blood pressure 192/86, tachycardic with a heart rate of 101, afebrile. Initial exam with NIH of 2. The patient was not a candidate for TNK as she was outside the 4 and half hour window. Given the CTA of her head neck was negative for large vessel occlusion she is not a candidate for thrombectomy, stroke neurology agrees with this course of action. Since she has gotten ophthalmology evaluation today she does not need transferred for ophthalmology. I considered the following differential diagnosis: CRAO, Acute CVA, TIA, ICH, Mass ALL IMAGES (IF OBTAINED) HAVE BEEN PERSONALLY REVIEWED AND INTERPRETED BY MYSELF. ESR negative CRP negative CT/CTA negative for ICH, mass of LVO EKG with normal sinus rhythm rate of 74, left ax deviation, no intervals, no STEMI, no sign of A-fib CBC without leukocytosis, severe anemia, no thrombocytopenia. No coagulopathy BMP without evidence of significant electrolyte abnormalities, no anion gap, no acute kidney injury. High-sensitivity troponin is negative, no evidence of myocardial ischemia The synthesis of the patient's history, physical exam, labs images suggest likely central retinal artery occlusion. Per [facility] stroke neurology the recommendation is to admit for further stroke workup. Per ophthalmology he is certain the patient is likely some from central retinal artery occlusion. Recommended no acute ophthalmologic surgical procedures. States he would like to see her further stroke workup and see her in the office as an outpatient. Given concern for acute CVA/central retinal artery occlusion will admit for MRI and further risk factor modification. Discussed with hospitalist. The patient and/or family, caregivers express understanding. The patient and/or family, caregivers agrees with the plan. Shared decision making: I will have a discussion with the patient and or visitors regarding risk/benefits of further testing or admission. They will be made aware of of the risk/benefits inherent in this decision they will be given the opportunity to voice understanding. Total critical care time today provided was at least 35 minutes. This excludes separately billable procedures. Critical care time (if documented) is secondary to the patient having high probability of clinically significant/life threatening deterioration in the patient's condition which required my urgent intervention. Impression: 1. CRAO 2. History of hypertension 3. History of hyperlipidemia Dispo: This note was generated with [employer] dictation software. It may contain incorrect words, spelling, and punctuation that were not noted in review of the chart prior to signing. Discharge Plan Triage Chief Complaint: Eye Problem ED Provider: Ashkan Yarbrough Dx/Rx/DC Orders Prescriptions: No Action aspirin 81 MG tablet,delayed release (DR/EC) 81 mg PO DAILY multivitamin with minerals 1 EACH tablet 1 ea PO DAILY fluoxetine 20 MG capsule 20 mg PO DAILY naproxen sodium 220 MG capsule 660 mg PO BID losartan 100 mg tablet 100 mg PO DAILY rosuvastatin 20 mg tablet 20 mg PO DAILY cholecalciferol (vitamin D3) [Vitamin D3] 125 mcg (5,000 unit) tablet 125 mcg PO DAILY ascorbic acid (vitamin C) 500 mg tablet 500 mg PO DAILY calcium carbonate 260 mg calcium (648 mg) tablet 520 mg PO DAILY Primary Care Provider: Shashank Morgan Referrals: Shashank Morgan MD [Primary Care Provider] - Print Language: French
[2024-08-09 12:17] LABS: Absolute Lymphocyte Count 1.81 X10^3/uL (0.83-4.51); Absolute Neutrophil Count 3.7 X10^3/uL (2.0-7.7); Basophil# 0.08 X10^3/uL; Basophil% 1.2 % (0-1); Eosinophil# 0.31 X10^3/uL; Eosinophils% 4.8 % (0-5); Hematocrit 42.5 % (37-47); Hemoglobin 14.5 g/dL (12.0-15.0); Lymphocyte # 1.81 X10^3/ul (0.83-4.51); Lymphocyte % 27.9 % (19-41); Mean Corp Hgb Conc 34.1 g/dL (32-36); Mean Corpuscular Hgb 29.5 pg (27.0-32.0); Mean Corpuscular Volume 86.4 fL (81-99); Mean Platelet Vol. 10.2 fl (6.2-12.0); Monocyte# 0.51 X10^3/uL; Monocyte% 7.9 % (0-10); NRBC Flagged by Analyzer 0 % (0-5); Neutrophil # 3.74 X10^3/uL (2.7-7.7); Neutrophil % 57.7 % (47-70); Platelet Count 264 K/mm3 (150-450); RBC Distribution Width CV 13.2 % (11.6-14.6); RBC Distribution Width SD 40.9 fl (35.1-43.9); Red Blood Count 4.92 M/mm3 (4.2-5.4); White Blood Count 6.5 K/mm3 (4.4-11.0)
[2024-08-09 12:26] LABS: International Normalized Ratio 0.9; Prothrombin Time (Protime)PT. 12.4 SECONDS (11.7-14.9)
[2024-08-09 12:27] LABS: Partial Thromboplast Time 33.1 Seconds (24.1-36.2)
[2024-08-09 12:48] LABS: Anion Gap 10 (5-15); BUN 18 mg/dL (4-19); BUN/Creat Ratio 18.7 RATIO (10-20); Calcium,Total 9.9 mg/dL (7.6-11.0); Carbon Dioxide 21.7 mmol/L (21.0-32.0); Chloride 108 mmol/L (98-108); Creatinine, Serum 0.95 mg/dL (0.70-1.20); EST Glomerular Filtration Rate 65 (>60); Estimated Creatinine Clearance 57.95 ml/min (50-250); Glucose 105 mg/dL (70-99); Potassium 4.5 mmol/L (3.3-5.1); Sodium Level 140 mmol/L (133-145); Troponin T High Sensitivity 10 ng/L (<=14)
--- NOTE | 2024-08-09 13:30 | CM.ED ---
Social Work: Date of referral: 08/09/24 Reason for referral: Stroke Alert lease out worker responded to stroke alert. Patient was leaving room with medical staff shortly after social media manager arrival and social media manager stayed behind to provide support to patient's , Richard, stated patient has a history of cataract surgery and in the early hours of this date, lost vision in her left eye. Patient and Richard went to the eye doctor and was sent here to ensure there are no other medical conditions that would require attention. Richard reported that patient was given a poor prognosis by the eye doctor that patient's vision will ever return to baseline. lease out worker got Richard some ice water per his request and no additional support needed at this time. (end time: 12:10) lease out worker went back to check on patient and Richard and patient stated she was doing fine and was just trying to have patience on waiting for testing results. lease out worker got patient a blanket as well as patient and Richard some ice water with the approval of patient's nurse. No other needs/supports needed at this time. (end time: 13:30) Bernie Macias, COM WRITER, MANAGER DRIVE
[2024-08-09 13:32] LABS: CRP < 3.00 mg/L (0.0-3.0)
[2024-08-09 13:40] LABS: Erythrocyte Sedimentation Rate 20 mm/hr (0-30)
[2024-08-09 15:14] LABS: Troponin T High Sens 2 HR 10 ng/L (<=14)
--- NOTE | 2024-08-09 16:24 | PCM.HP.STD ---
HPI - General General Date of Admission: 08/09/24 HPI Narrative MARIOLA KINSEY, is a 68 F who presents to the hospital with loss of vision in her left eye. She woke up this morning around 4 AM and noticed that she could not see out of her left eye. She was seen by ophthalmology in the outpatient setting and there was concern for central retinal artery occlusion, she has very little pupillary reaction on the left side. No pain but she cannot see out of it she says that it feels that there is a patch over her eye. She says that she never had a stroke before and she was sent to the ER for further evaluation. ESR and CRP are negative ruling out temporal arteritis. CTA of the head and neckIs negative for any major vessel occlusion, AVM or aneurysm. [facility] Medical History (Updated 08/09/24 @ 16:[address] Riley Martinez MD) Cataract Hypertension Home Medications ?Medication ?Instructions ?Recorded ?Last Taken ?Type aspirin 81 mg tablet,delayed 81 mg PO DAILY 02/16/20 08/09/24 History release fluoxetine 20 mg capsule 20 mg PO DAILY 02/16/20 08/09/24 History multivitamin with minerals 1 ea PO DAILY 02/16/20 08/09/24 History naproxen sodium 220 mg capsule 660 mg PO BID 02/16/20 08/09/24 History ascorbic acid (vitamin C) 500 mg 500 mg PO DAILY 08/09/24 08/09/24 History tablet calcium carbonate 520 mg PO DAILY 08/09/24 08/09/24 History cholecalciferol (vitamin D3) 125 125 mcg PO DAILY 08/09/24 08/09/24 History mcg (5,000 unit) tablet (Vitamin D3) losartan 100 mg tablet 100 mg PO DAILY 08/09/24 08/09/24 History rosuvastatin 20 mg tablet 20 mg PO DAILY 08/09/24 08/09/24 History Allergy/AdvReac Type Severity Reaction Status Date / Time No Known Allergies Allergy Verified 08/09/24 11:42 Family History (Updated 08/09/24 @ 16:[address] Riley Martinez MD) Other CVA (cerebral vascular accident) Heart disease Hypertension Myocardial infarction Surgical History (Updated 08/09/24 @ 16:[address] Riley Martinez MD) Status post total knee replacement, right Status post hysterectomy Status post appendectomy Social History Smoking Status: Never smoker ROS Constitutional Constitutional: Denies chills, fatigue, fever(s) or malaise Eyes Eyes: Reports change in vision left; Denies blurry vision ENT HEENT: Denies headache(s) or nasal discharge Cardiovascular Cardiovascular: Denies chest pain, dyspnea on exertion or syncope Respiratory/Chest Respiratory/Chest: Denies cough, shortness of breath at rest or shortness of breath with exertion Gastrointestinal Gastrointestinal: Denies constipation, diarrhea, nausea or vomiting Genitourinary Genitourinary: Denies dysuria Neurologic Neurologic: Denies focal weakness, numbness or tremor(s) Psychiatric Psychiatric: Denies anxiety or depression Vital Signs Vital Signs Vital Signs: 08/09/24 11:39 08/09/24 12:06 08/09/24 12:06 Temperature 97.3 F L Temperature Source Oral Pulse Rate 101 H 78 Respiratory Rate 19 H 18 Blood Pressure 192/86 H 184/92 H Blood Pressure Mean 121 122 Pulse Ox 98 97 98 Oxygen Delivery Method Room Air Room Air Room Air 08/09/24 12:36 08/09/24 13:07 08/09/24 15:00 Temperature Temperature Source Pulse Rate 76 74 78 Respiratory Rate 18 16 18 Blood Pressure 158/74 H 158/74 H 144/69 H Blood Pressure Mean 102 102 94 Pulse Ox 97 97 98 Oxygen Delivery Method Room Air Room Air Room Air 08/09/24 15:44 Temperature 98.0 F Temperature Source Pulse Rate 85 Respiratory Rate 18 Blood Pressure 144/69 H Blood Pressure Mean 94 Pulse Ox 99 Oxygen Delivery Method Weight Weight: 165 lb 14.4 oz Body Mass Index (BMI) 26.7 Physical Exam Narrative General: Alert, Oriented x3, Cooperative, No apparent distress HEENT: Atraumatic, diminished pupillary reaction on the left with no vision on the left, right eye normal Oral: Moist Mucosa Neck: Supple, No JVD Lungs: Clear to auscultation, Normal air movement, No rhonchi, No wheeze, No rales Cardiovascular: Regular rate, Regular Rhythm, Normal S1, Normal S2, No murmurs Abdomen: Soft, Non Tender, Non-Distended, No Hepato-splenomegaly Extremities: No edema, Capillary Refill Less than 3 Seconds Skin: No rashes, No breakdown Musculoskeletal: No Tenderness to Palpation of Joints or Extremities Neurological: No focal neurological deficits, Motor Exam 5/5 strength throughout, Sensory exam intact to light touch and pain Psych/Mental Status: Normal Affect, Appropriate Results Lab / Micro Data 08/09/24 12:10 08/09/24 12:10 Labs: Laboratory Results - last 24 hr 08/09/24 12:10: WBC 6.5, RBC 4.92, Hgb 14.5, Hct 42.5, MCV 86.4, MCH 29.5, MCHC 34.1, RDW Std Deviation 40.9, RDW Coeff of Evans 13.2, Plt Count 264, MPV 10.2, Immature Gran % (Auto) 0.500, Neut % (Auto) 57.7, Lymph % (Auto) 27.9, [place] % (Auto) 7.9, Eos % (Auto) 4.8, Baso % (Auto) 1.2 H, Absolute Neuts (auto) 3.7, Absolute Lymphs (auto) 1.81, Nucleated RBC % 0, ESR 20, PT 12.4, INR 0.9, APTT 33.1, Sodium 140, Potassium 4.5, Chloride 108, Carbon Dioxide 21.7, Anion Gap 10, BUN 18, Creatinine 0.95, Estim Creat Clear Calc 57.95, Est GFR (MDRD) Non-Af 65, BUN/Creatinine Ratio 18.7, Glucose 105 H, Calcium 9.9, Troponin T High Sens 10, C-React Prot Ext Range < 3.00 08/09/24 14:28: Troponin T Hi Sens 2 Hr 10 Imaging Radiology Impression Brain CT 08/09/24 12:06 IMPRESSION: No acute intracranial finding. Reading Location: [facility] Head/Neck CTA 08/09/24 12:06 IMPRESSION: No large vessel occlusion, AVM or aneurysm. Reading Location: [facility] Assessment & Plan Assessment/Plan (1) Central retinal artery occlusion: PLAN: Plan 1. Central retinal artery occlusion ? She was evaluate ophthalmology as an outpatient ? She has complete vision loss on the left with very little pupillary function ? CTA of the head and neck was unremarkable ? Will obtain MRI, continue with aspirin and statin ? Will obtain an echocardiogram ? Will consult neurology ? ESR and CRP are negative 2. Essential HTN/HLD ? Will continue with her Crestor but hold her blood pressure medications to allow permissive hypertension ? Will monitor and make adjustments as necessary 3. Anxiety/depression ? Stable ? Continue with her home medications DVT: SCDs Charges/Coding Visit Charges Inpatient E&M: 52606 Init Hosp L2
--- NOTE | 2024-08-09 16:46 | ECHOD_ITS ---
Reason For Study Reason For Study: TIA/CVA Procedure This was a 2D Doppler, Color Flow transthoracic echocardiogram. Exam performed portable in patient room. Left Ventricle Normal size and thickness. The LV systolic function is normal. EF is 65 %. Stage 1 diastolic dysfunction. Right Ventricle Normal right ventricle. Atria The left and right atria are normal. Mitral Valve Mild mitral annular calcification. Tricuspid Valve Normal tricuspid valve. Trivial tricuspid valve insufficiency. Normal pulmonary artery pressure. Aortic Valve Trisinus/trileaflet aortic valve. Mild-Moderate (1-2+) aortic valve insufficiency. Pulmonic Valve The pulmonic valve is not well visualized. Trivial pulmonic valve insufficiency. Great Vessels Normal sized aortic root. Pericardium/Pleural No pericardial effusion. MMode/2D Measurements & Calculations LVIDd: 5.1 cm IVSd: 0.99 cm Ao root diam: 3.1 cm LVIDs: 3.2 cm LVPWd: 0.97 cm RVDd: 3.0 cm FS: 37.6 % LAV(MOD-bp): 35.2 ml LVAd ap4: 29.2 cm2 SV(MOD-sp4): 52.1 ml LAV(MOD-bp) Indexed: 19.1 ml/m2 LVLd ap4: 7.7 cm SI(MOD-sp4): 28.3 ml/m2 LAV(MOD-sp2): 35.5 ml EDV(MOD-sp4): 91.8 ml LAV(MOD-sp4): 34.9 ml EDV(sp4-el): 94.4 ml LVAs ap4: 17.1 cm2 LVLs ap4: 6.5 cm ESV(MOD-sp4): 39.7 ml ESV(sp4-el): 38.1 ml EF(MOD-sp4): 56.8 % EF(sp4-el): 59.6 % SV(sp4-el): 56.3 ml LA A4 area: 14.6 cm2 LA dimension(2D): 3.2 cm RA A4 area: 11.6 cm2 TAPSE: 1.8 cm Time Measurements MV dec time: 0.26 sec Doppler Measurements & Calculations MV E max chalino: 58.5 cm/sec Lat Peak E' Chalino: 8.4 cm/sec Med Peak E' Chalino: 7.8 cm/sec MV A max chalino: 58.3 cm/sec E/E' lat: 7.0 E/E' med: 7.5 MV E/A: 1.0 Ao V2 max: 168.8 cm/sec AI max chalino: 428.3 cm/sec LV V1 max: 96.5 cm/sec Ao max P.4 mmHg AI max P.4 mmHg LV V1 max P.7 mmHg AI dec slope: 308.2 cm/sec2 AI P1/2t: 407.0 msec PA V2 max: 93.8 cm/sec TR max chalino: 257.9 cm/sec TR max P.6 mmHg ECHO/Echo Complete Interpretation Summary The LV systolic function is normal. EF is 65 %. Stage 1 diastolic dysfunction. Mild-Moderate (1-2+) aortic valve insufficiency. Mild mitral annular calcification. Ordering Physician: Riley Martinez Referring Physician: JOAQUIM MATOS Performed By: Kenzie Gates RDCS
[2024-08-10 01:10] VITALS: BMI 35.2
[2024-08-10 01:15] VITALS: BP 148/77; PULSE 75; RESP 18; TEMP 36.6; O2SAT 99
[2024-08-10 05:15] VITALS: BP 154/81; PULSE 78; RESP 18; TEMP 36.4; O2SAT 97
--- NOTE | 2024-08-10 06:00 | MRI_ITS ---
PROCEDURE: BRAIN WITHOUT CONTRAST (MRIBR), 08/10/2024 REASON FOR EXAM: CVA COMPARISON: 08/09/2024 TECHNIQUE: Multisequence multiplanar MRI brain was performed without intravenous contrast. Contrast: None. FINDINGS: Cerebrum: No acute infarct, visible mass, or definite intracranial hemorrhage identified. Mild/moderate scattered supratentorial white matter abnormalities are nonspecific but compatible with chronic microvascular ischemic changes. Cerebellum: Unremarkable. Brainstem: Unremarkable. Ventricles/extra-axial spaces: Age appropriate appearance. Major flow voids: Better evaluated on recent CTA. Paranasal sinuses: Trace to mild ethmoid mucosal thickening. Scalp/calvarium: Unremarkable. Orbits: Bilateral cataract surgery. Other: None. MRI/Brain without Contrast IMPRESSION: 1. No specific evidence of an acute intracranial process. 2. Additional description as above. Reading Location: [id number]
[2024-08-10 07:04] LABS: Absolute Lymphocyte Count 2.44 X10^3/uL (0.83-4.51); Absolute Neutrophil Count 3.5 X10^3/uL (2.0-7.7); Basophil# 0.06 X10^3/uL; Basophil% 0.9 % (0-1); Eosinophil# 0.43 X10^3/uL; Eosinophils% 6.2 % (0-5); Hematocrit 43.5 % (37-47); Hemoglobin 14.7 g/dL (12.0-15.0); Lymphocyte # 2.44 X10^3/ul (0.83-4.51); Mean Corp Hgb Conc 33.8 g/dL (32-36); Mean Corpuscular Hgb 29.2 pg (27.0-32.0); Mean Corpuscular Volume 86.5 fL (81-99); Mean Platelet Vol. 10.5 fl (6.2-12.0); Monocyte# 0.48 X10^3/uL; Monocyte% 6.9 % (0-10); NRBC Flagged by Analyzer 0 % (0-5); Neutrophil # 3.54 X10^3/uL (2.7-7.7); Neutrophil % 50.7 % (47-70); Platelet Count 277 K/mm3 (150-450); RBC Distribution Width CV 13.3 % (11.6-14.6); RBC Distribution Width SD 41.1 fl (35.1-43.9); Red Blood Count 5.03 M/mm3 (4.2-5.4)
[2024-08-10 08:11] VITALS: BP 145/75; PULSE 81; RESP 16; TEMP 36.7; O2SAT 96
[2024-08-10] MEDS: FLUoxetine 20 MG Capsule PO (08:13)
[2024-08-10] MEDS: Aspirin E.C. 81 MG Tablet PO (08:13)
[2024-08-10] MEDS: Atorvastatin Calcium 40 MG Tablet PO (08:13)
[2024-08-10 10:00] VITALS: BP 159/80; PULSE 88; RESP 16; TEMP 36.7; O2SAT 99
[2024-08-10 10:26] LABS: Anion Gap 9 (5-15); BUN 15 mg/dL (4-19); BUN/Creat Ratio 16.8 RATIO (10-20); Calcium,Total 9.6 mg/dL (7.6-11.0); Carbon Dioxide 23.6 mmol/L (21.0-32.0); Chloride 108 mmol/L (98-108); Cholesterol 220 mg/dL (<=200); Creatinine, Serum 0.91 mg/dL (0.70-1.20); EST Glomerular Filtration Rate 68 (>60); Estimated Creatinine Clearance 62.19 ml/min (50-250); Glucose 92 mg/dL (70-99); High Density Lipoprotein 46 mg/dL; Low Density Lipoprotein Calc. 143 mg/dL; Potassium 4.3 mmol/L (3.3-5.1); Sodium Level 141 mmol/L (133-145); Triglycerides 159 mg/dL; Very Low Density Lipoprotein 32 mg/dL (5-40); cholesterol:hdl ratio screen 4.84
--- NOTE | 2024-08-10 12:19 | CON.PCM.NE_ITS ---
Assessment and Plan: Stroke Assessment/Plan MARIOLA KINSEY is a 68 F with a history of HTN, HLD who presents for evaluation of painless loss of vision in left eye. 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 Neurological examination shows non focal expect left eye poor vision. Neuroimaging shows CTA Negative, MRi Brain No acute stroke, CRP and ESR normal, LDL 143. Work up shows no acute stroke and has CRAO Plan Continue ASA Strict BP control Statin dose increased ECHO report pending. 30 Day Event monitor to r/o other causes of ECHO is negative Thanks for consult Spent 70 minutes in evaluation and management of this patient. HPI Consult Data Date of Consult: 08/10/24 HPI Narrative HPI Narrative: MARIOLA KINSEY, is a 68 F with a history of hypertension, HLD who presents with loss of vision in her left eye. She woke up yesterday morning around 4 AM and noticed that she could not see out of her left eye. She can see only from a small portion of the left eye. She was seen by ophthalmology in the outpatient setting and there was concern for central retinal artery occlusion, she has very little pupillary reaction on the left side. No pain but she cannot see out of it she says that it feels that there is a patch over her eye. She denies having other symptoms like slurred speech, weakness or numbness. ESR and CRP are negative ruling out temporal arteritis. CTA of the head and neck was negative for any major vessel occlusion, AVM or aneurysm. [facility] [place] Medical History (Updated 08/09/24 @ 16:[address] Riley Martinez MD) Cataract Hypertension Home Medications ?Medication ?Instructions ?Recorded ?Last Taken ?Type aspirin 81 mg tablet,delayed 81 mg PO DAILY 02/16/20 0 08/09/24 History release multivitamin with minerals 1 ea PO DAILY 02/16/2007/31 History naproxen sodium 220 mg capsule 660 mg PO BID 02/16/20 08/09/24 History ascorbic acid (vitamin C) 500 mg 500 mg PO DAILY 08/0908/09/24 History tablet calcium carbonate 520 mg PO DAILY 08/09/2407/31 History cholecalciferol (vitamin D3) 125 125 mcg PO DAILY 07/3108/09/24 History mcg (5,000 unit) tablet (Vitamin D3) losartan 100 mg tablet 100 mg PO DAILY 08/09/2407/31 History rosuvastatin 20 mg tablet 20 mg PO DAILY 08/09/2407/31 History Allergy/AdvReac Type Severity Reaction Status Date / Time No Known Allergies Allergy Verified 08/09/24 11:42 Family History (Updated 08/09/24 @ 16:[address] Riley Martinez MD) Other CVA (cerebral vascular accident) Heart disease Hypertension Myocardial infarction Surgical History (Updated 08/09/24 @ 16:[address] Riley Martinez MD) Status post total knee replacement, right Status post hysterectomy Status post appendectomy Social History Smoking Status: Never smoker Vital Signs Vital Signs Vital Signs: 08/09/24 12:36 08/09/24 13:07 08/09/24 15:00 Temperature Temperature Source Pulse Rate 76 74 78 Pulse Strength Respiratory Rate 18 16 18 Respiratory Effort Respiratory Depth Respiratory Pattern Blood Pressure 158/74 H 158/74 H 144/69 H Blood Pressure Mean 102 102 94 Blood Pressure Source Blood Pressure Position Blood Pressure Location Pulse Ox 97 97 98 Oxygen Delivery Method Room Air Room Air Room Air 08/09/24 15:44 08/09/24 17:00 08/09/24 17:15 Temperature 98.0 F 97.3 F L Temperature Source Temporal Pulse Rate 85 72 Pulse Strength Normal (2+) Respiratory Rate 18 18 Respiratory Effort Respiratory Depth Respiratory Pattern Blood Pressure 144/69 H 154/75 H Blood Pressure Mean 94 101 Blood Pressure Source Monitor Blood Pressure Position Semi-Fowlers Blood Pressure Location Right Forearm Pulse Ox 99 99 Oxygen Delivery Method Room Air 08/09/24 17:26 08/09/24 21:15 08/09/24 21:33 Temperature 97.3 F L Temperature Source Temporal Pulse Rate 80 Pulse Strength Respiratory Rate 18 Respiratory Effort Normal Non-Labored Normal Non-Labored Respiratory Depth Normal Normal Respiratory Pattern Normal Normal Blood Pressure 169/78 H Blood Pressure Mean 108 Blood Pressure Source Monitor Blood Pressure Position Semi-Fowlers Blood Pressure Location Right Arm Pulse Ox 97 Oxygen Delivery Method Room Air Room Air Room Air 08/09/24 21:42 08/10/24 01:15 08/10/24 01:20 Temperature 97.8 F Temperature Source Temporal Pulse Rate 75 Pulse Strength Normal (2+) Respiratory Rate 18 Respiratory Effort Normal Non-Labored Respiratory Depth Normal Respiratory Pattern Normal Blood Pressure 148/77 H Blood Pressure Mean 100 Blood Pressure Source Monitor Blood Pressure Position Semi-Fowlers Blood Pressure Location Right Forearm Pulse Ox 99 Oxygen Delivery Method Room Air Room Air 08/10/24 05:15 08/10/24 08:11 08/10/24 11:16 Temperature 97.5 F L 98.0 F Temperature Source Temporal Oral Pulse Rate 78 81 Pulse Strength Respiratory Rate 18 16 Respiratory Effort Respiratory Depth Respiratory Pattern Blood Pressure 154/81 H 145/75 H Blood Pressure Mean 105 98 Blood Pressure Source Monitor Monitor Blood Pressure Position Semi-Fowlers Semi-Fowlers Blood Pressure Location Right Forearm Left Arm Pulse Ox 97 96 Oxygen Delivery Method Room Air Room Air Room Air Weight Weight: 90.2 kg Body Mass Index (BMI) 35.2 Physical Exam Const alert, oriented x3 and no apparent distress Neuro Neuro Narrative: Awake, alert 0riented X3 CN 2-12 intact Speech fluent, no aphasia Poor vision in left eye. Motor 5/5 Sensation: Intact No ataxia Lab / Micro Data 08/10/24 06:17 08/10/24 06:17 Labs: Laboratory Results - last 24 hr 08/09/24 12:10: ESR 20, PT 12.4, INR 0.9, APTT 33.1, Sodium 140, Potassium 4.5, Chloride 108, Carbon Dioxide 21.7, Anion Gap 10, BUN 18, Creatinine 0.95, Estim Creat Clear Calc 57.95, Est GFR (MDRD) Non-Af 65, BUN/Creatinine Ratio 18.7, G lucose 105 H, Calcium 9.9, Troponin T High Sens 10, C-React Prot Ext Range < 3.00 08/09/24 14:28: Troponin T Hi Sens 2 Hr 10 08/10/24 06:17: WBC 7.0, RBC 5.03, Hgb 14.7, Hct 43.5, MCV 86.5, MCH 29.2, MCHC 33.8, RDW Std Deviation 41.1, RDW Coeff of Evans 13.3, Plt Count 277, MPV 10.5, Immature Gran % (Auto) 0.300, Neut % (Auto) 50.7, Lymph % (Auto) 35.0, Churchill % (Auto) 6.9, Eos % (Auto) 6.2 H, Baso % (Auto) 0.9, Absolute Neuts (auto) 3.5, Absolute Lymphs (auto) 2.44, Nucleated RBC % 0, Sodium 141, Potassium 4.3, Chloride 108, Carbon Dioxide 23.6, Anion Gap 9, BUN 15, Creatinine 0.91, Estim Creat Clear Calc 62.19, Est GFR (MDRD) Non-Af 68, BUN/Creatinine Ratio 16.8, Glucose 92, Calcium 9.6, Triglycerides 159, Cholesterol 220 H, LDL Cholesterol, Calc 143, VLDL Cholesterol 32, HDL Cholesterol 46, Cholesterol/HDL Ratio 4.84 Imaging Radiology Impression Brain CT 08/09/24 12:06 IMPRESSION: No acute intracranial finding. Reading Location: [facility] Head/Neck CTA 08/09/24 12:06 IMPRESSION: No large vessel occlusion, AVM or aneurysm. Reading Location: [facility] Brain MRI 08/10/24 06:00 IMPRESSION: 1. No specific evidence of an acute intracranial process. 2. Additional description as above. Reading Location: [facility] Active Medications Active Medications Active Medications: Current Medications Generic Name Dose Route Start Last Admin Trade Name Freq PRN Reason Stop Dose Admin Aspirin 81 mg 08/10/24 08:00 08/10/24 08:13 Aspirin E.C. 81 Mg Tablet PO 81 mg BREAKFAST WILLIAM Administration Atorvastatin Calcium 40 mg 08/10/24 10:00 08/10/24 08:13 Atorvastatin Calcium 40 Mg Tablet PO 40 mg DAILY WILLIAM Administration Fluoxetine HCl 20 mg 08/10/24 10:00 08/10/24 08:13 Fluoxetine 20 Mg Capsule PO 20 mg DAILY WILLIAM Administration Hydralazine HCl 5 mg 08/09/24 16:46 Hydralazine 20 Mg/Ml Vial IV 08/10/24 16:46 Q30M PRN maintain BP parameters with HR <60 Labetalol HCl 10 - 20 mg 08/09/24 16:46 Labetalol 20mg/4ml Syringe IV 08/10/24 16:46 Q10M PRN PRN maintain BP parameters with HR >/=60 Sodium Chloride 10 - 40 ml 08/09/24 17:03 0.9% Saline Lock 10 Ml Syringe IV UD PRN SALINE FLUSH NIHSS NIHSS Nursing Documentation NIHSS Nursing Documentation: NIH Stroke Scale Start: 08/09/24 11:56 Freq: Status: Discharge Protocol: Activity Type Activity Date Activity User E-sign Co-sign Detail Recorded Client Recorded Date Recorded By Document 08/09/24 11:55 [id number] 08/09/24 12:05 08/09/24 11:55 NIH Stroke Scale [NIHSS] A score of 0 is normal or asymptomatic . Total possible score is 42. Inpatient: RN or Physician to activate a stroke alert for onset of new stroke symptoms or with NIHSS increase >/= 3 points. Following change in neurological status, NIHSS will be performed per physician order or more frequently PRN. -1a. Level of Consciousness 0 - Alert; keenly responsive -1b. LOC Questions 0 - Answers BOTH questions correctly -1c. LOC Commands 0 - Performs BOTH tasks correctly -2. Best Gaze 0 - Normal -3. Visual 2 - Complete hemianopia -4. Facial Palsy 0 - Normal symmetrical movements -5a. Left Arm 0 - No drift; arm holds 90 ( or 45) degrees for full 10 seconds -5b. Right Arm 0 - No drift; arm holds 90 ( or 45) degrees for full 10 seconds -6a. Left Leg 0 - No drift; leg holds 30- degree position for full 5 seconds -6b. Right Leg 0 - No drift; leg holds 30- degree position for full 5 seconds -7. Limb Ataxia 0 - Absent -8. Sensory 0 - Normal; no sensory loss -9. Best Language 0 - No aphasia; normal -10. Dysarthria 0 - Normal -11. Extinction and Inattention 0 - No abnormality -Total 2 Query Text:A score of 0 is normal or asymptomatic. Total possible score is 42 . ED: Notify Physician for NIHSS increase by > / = 3 points. Inpatient: RN or Physician to activate a stroke alert for NIHSS increase of > / = 3 points. NIHSS: Ischemic Stroke/TIA Start: 08/09/24 16:46 Text: For PCU Patients: NIH and Neuro Check every 4 Status: Active hours, PRN and with change in RN caregiver. Freq: [id number] Protocol: Activity Type Activity Date Activity User E-sign Co-sign Detail Recorded Client Recorded Date Recorded By Document 08/10/24 10:00 RV desktop 08/10/24 11:56 RV 08/10/24 10:00 -1a. Level of Consciousness 0 - Alert; keenly responsive -1b. LOC Questions 0 - Answers BOTH questions correctly -1c. LOC Commands 0 - Performs BOTH tasks correctly -2. Best Gaze 0 - Normal -3. Visual 2 - Complete hemianopia -4. Facial Palsy 0 - Normal symmetrical movements -5a. Left Arm 0 - No drift; arm holds 90 ( or 45) degrees for full 10 seconds -5b. Right Arm 0 - No drift; arm holds 90 ( or 45) degrees for full 10 seconds -6a. Left Leg 0 - No drift; leg holds 30- degree position for full 5 seconds -6b. Right Leg 0 - No drift; leg holds 30- degree position for full 5 seconds -7. Limb Ataxia 0 - Absent -8. Sensory 0 - Normal; no sensory loss -9. Best Language 0 - No aphasia; normal -10. Dysarthria 0 - Normal -11. Extinction and Inattention 0 - No abnormality -Total 2 Query Text:A score of 0 is normal or asymptomatic. Total possible score is 42 . ED: Notify Physician for NIHSS increase by > / = 3 points. Inpatient: RN or Physician to activate a stroke alert for NIHSS increase of > / = 3 points. Coma Scale [Assess] -Eye Opening Spontaneous -Motor Obeys Commands -Verbal Oriented [Total] -Coma Scale Total 15 NIHSS 1a. Level of Consciousness: 0 - Alert; keenly responsive 1b. LOC Questions: 0 - Answers BOTH questions correctly 1c. LOC Commands: 0 - Performs BOTH tasks correctly 2. Best Gaze: 0 - Normal 3. Visual: 0 - No visual loss 4. Facial Palsy: 0 - Normal symmetrical movements 5a. Left Arm: 0 - No drift; arm holds 90 (or 45) degrees for full 10 seconds 5b. Right Arm: 0 - No drift; arm holds 90 (or 45) degrees for full 10 seconds 6a. Left Le - No drift; leg holds 30-degree position for full 5 seconds 6b. Right Le - No drift; leg holds 30-degree position for full 5 seconds 7. Limb Ataxia: 0 - Absent 8. Sensory: 0 - Normal; no sensory loss 9. Best Language: 0 - No aphasia; normal 10. Dysarthria: 0 - Normal 11. Extinction and Inattention: 0 - No abnormality Total: 0
--- NOTE | 2024-08-10 12:58 | DS.PCM_ITS ---
Providers Date of Admission: 08/09/24 Date of Discharge: 08/10/24 Primary Care Physician: Dr. Shashank Matos MD Consultations 08/09/24 16:46 Consult: Tele-Neurology Routine Consulting Provider: [facility] Reason for Consult: Acute Ischemic Stroke/TIA EMERGENT Consult: No MD Notified: Yes Date Notified: 08/09/24 Time Notified: 16:08 Method of Notification: Answering Service Nursing Unit Staff Notify [facility] of Tele-Neurology Consult: Yes Reason For Visit: CRAO Diagnosis Discharge Diagnosis (1) Central retinal artery occlusion: Status: Acute Code(s): H34.10 - Central retinal artery occlusion, unspecified eye Medications at Discharge Home Medications aspirin 81 mg tablet,delayed release 81 mg PO DAILY 02/16/20 multivitamin with minerals 1 ea PO DAILY 02/16/20 naproxen sodium 220 mg capsule 660 mg PO BID 02/16/20 ascorbic acid (vitamin C) 500 mg tablet 500 mg PO DAILY 08/09/24 calcium carbonate 520 mg PO DAILY 08/09/24 cholecalciferol (vitamin D3) 125 mcg (5,000 unit) tablet (Vitamin D3) 125 mcg PO DAILY 08/09/24 losartan 100 mg tablet 100 mg PO DAILY 08/09/24 rosuvastatin 20 mg tablet 20 mg PO DAILY 08/09/24 Hospital Course Operations None Procedures 2-D Echocardiogram Summary of Care Provided Minutes Spent on Discharge: 45 Hospital Course: Patient is a 68-year-old female with past medical history as outlined who was admitted to the ED on 08/09/2024 with complaint of loss of vision in her left eye. She woke up around 4 AM on the day of presentation and noticed she could not see out of her left eye. She had been seen by ophthalmology in the outpatient setting and there was concern for central retinal artery occlusion so she was brought into the ED to rule out a stroke. ESR and CRP were not elevated. CT of the brain showed no acute intracranial pathology and CT of the head and neck were negative for any major vessel occlusion. She had MRI of the brain which showed no evidence of stroke. Neurology reviewed patient and recommended continuing aspirin and for her to be discharged on a 30-day event monitor to look out for any arrhythmia. 2D echo done showed EF of 65% with stage I diastolic dysfunction and normal left ventricular systolic function with mild mitral annular calcification. Patient was discharged home on 08/10/2024. She is to follow-up with her primary care doctor and was referred to neurology on outpatient basis also. She was discharged with a 30-day event monitor. Patient seen and examined prior to discharge. She had no active complaints. She still has a loss of vision in her left eye. Review of systems otherwise negative. Labs and vitals reviewed. Home medication reviewed and reconciled. Physical Exam Const alert, oriented x3 and no apparent distress General Appearance: cooperative, comfortable and well kempt Orientation / Consciousness: awake Exam Limitations: no limitations HEENT normocephalic, head/scalp atraumatic, hearing grossly normal bilaterally, moist oral mucous membranes and oropharynx normal Mouth: oral and palatal mucosa normal and dry mucous membranes Eyes Eyes Narrative: loss of vision in left eye. Neck no lymphadenopathy, supple and no JVD Resp normal respiratory effort, no retractions, no use of accessory muscles and clear to auscultation bilaterally Cardio regular rate, regular rhythm, S1 normal heart sound, S2 normal heart sound and no murmurs GI normal to inspection, nondistended, normoactive bowel sounds, soft to palpation, non-tender and non-distended Extremity normal to inspection, full ROM and no clubbing, cyanosis or edema Skin no rashes or lesions noted Neuro oriented x3, CN's II-XII intact bilaterally, moves all extremities and no focal motor deficits Sensorium / Orientation: awake and alert Motor Exam: strength 5/5 throughout Psych affect normal Weight / BMI Weight Weight: 198 lb 13.711 oz Body Mass Index (BMI) 35.2 ABG / Lab / Microbiology Data 08/10/24 06:17 08/10/24 06:17 Laboratory: Laboratory Results - last 24 hr 08/10/24 06:17: WBC 7.0, RBC 5.03, Hgb 14.7, Hct 43.5, MCV 86.5, MCH 29.2, MCHC 33.8, RDW Std Deviation 41.1, RDW Coeff of Evans 13.3, Plt Count 277, MPV 10.5, Immature Gran % (Auto) 0.300, Neut % (Auto) 50.7, Lymph % (Auto) 35.0, Cassia % (Auto) 6.9, Eos % (Auto) 6.2 H, Baso % (Auto) 0.9, Absolute Neuts (auto) 3.5, Absolute Lymphs (auto) 2.44, Nucleated RBC % 0, Sodium 141, Potassium 4.3, Chloride 108, Carbon Dioxide 23.6, Anion Gap 9, BUN 15, Creatinine 0.91, Estim Creat Clear Calc 62.19, Est GFR (MDRD) Non-Af 68, BUN/Creatinine Ratio 16.8, Glucose 92, Calcium 9.6, Triglycerides 159, Cholesterol 220 H, LDL Cholesterol, Calc 143, VLDL Cholesterol 32, HDL Cholesterol 46, Cholesterol/HDL Ratio 4.84 Radiography Diagnostic Testing: Radiology Impression Echocardiogram 08/09/24 16:46 Interpretation Summary The LV systolic function is normal. EF is 65 %. Stage 1 diastolic dysfunction. Mild-Moderate (1-2+) aortic valve insufficiency. Mild mitral annular calcification. Ordering Physician: Riley Martinez Referring Physician: SHASHANK MATOS Performed By: Kenzie Gates RDCS Brain MRI 08/10/24 06:00 IMPRESSION: 1. No specific evidence of an acute intracranial process. 2. Additional description as above. Reading Location: [facility] D/C Instructions Discharge Diet: Low fat / Low cholesterol Discharge Activity: Return to Normal Activity Weight Bearing Status: Weight bearing as tolerated Call your doctor if you observe: Fever of 101 or Higher, Shortness of breath, Dizziness, Swelling in the ankles and Chest pain DC O2, CPAP, BIPAP Needs Home O2 Discharge instructions: No DC home with Oxygen: No Meaningful Use Info Meaningful Use Meaningful Use Diagnoses (Choose all that apply): None applicable Ischemic Stroke Statin Dosing Therapy Reference: STATIN DOSE THERAPY REFERENCE: * Patients > 75 years receive moderate or high dose statin therapy. * Patients 75 years or YOUNGER should receive HIGH intensity statin dose unless contraindicated. You will be required to document reason for non-treatment if statin daily dose does not meet guidelines. HIGH DOSE STATIN THERAPY DAILY Atorvastatin > than or = to 40 mg Rosuvastatin > than or = to 20 mg Amlodipine + Atorvastatin > than or = to 2.5/40 mg Ezetimibe + Simvastatin 10/80 mg Simvastatin 80mg Discharge Plan Admission Admit Date/Time: 08/09/24 16:07 Primary Reason for Your Visit: left eye vision loss Attending Provider: Sierra Madrid Primary Care Provider: Shashank Matos Consulting Providers: Kj Gustafson; Jackie Jesus; Ainsley Ritter; Nan Tuttle; Siria Basurto; Gadiel White; Eli Marcos; Maximino Ruelas; Yo Butt; Abhijit Garrett; Mackenzie Torres; Adrian Aguilar; Judy Holguin; Salma Israel; Uma Foy; Bijan Cabrera; Blossom Alfred; Jonah Coley; Danuta Roberts; Mg Sauer; Riley Martinez Instructions Patient Instructions: Central Retinal Artery Occlusion Discharge Orders/Prescriptions Prescriptions: Continued aspirin 81 MG tablet,delayed release (DR/EC) 81 mg PO DAILY multivitamin with minerals 1 EACH tablet 1 ea PO DAILY naproxen sodium 220 MG capsule 660 mg PO BID losartan 100 mg tablet 100 mg PO DAILY rosuvastatin 20 mg tablet 20 mg PO DAILY cholecalciferol (vitamin D3) [Vitamin D3] 125 mcg (5,000 unit) tablet 125 mcg PO DAILY ascorbic acid (vitamin C) 500 mg tablet 500 mg PO DAILY calcium carbonate 260 mg calcium (648 mg) tablet 520 mg PO DAILY Other Ambulatory Orders: 30 Day Event Recorder Preventi (Urgent) Timeframe: 1 Day Facility: [facility] - Location: Cardiovascular Services Ordered By: Dr. Sierra Madrid Referrals / Follow Up: Shashank Matos MD [Primary Care Provider] - Within 1 Week Booker Murrell MD [Non-Staff -Ordering Privileges] - Within 2 Weeks Disposition Disposition (needs filled in before D/C Order can be placed): Home, Self Care Charges/Coding Visit Charges Inpatient E&M: 39677 Disch Hosp >30min
--- NOTE | 2024-08-10 13:17 | CASEMGMT ---
SW did not complete a PHQ 9 as patient did not have a Stroke or TIA, Yamila COLUNGA
--- NOTE | 2024-08-10 13:33 | PHA.DC.MR.R ---
Pharmacy [place] Med Reconciliation Pharmacy Service has performed discharge medication reconciliation for this patient. The patient's discharge medication list was reviewed for discrepancies and discrepancies were resolved. Medications at Discharge Home Medications aspirin 81 mg tablet,delayed release 81 mg PO DAILY 02/16/20 multivitamin with minerals 1 ea PO DAILY 02/16/20 naproxen sodium 220 mg capsule 660 mg PO BID 02/16/20 ascorbic acid (vitamin C) 500 mg tablet 500 mg PO DAILY 08/09/24 calcium carbonate 520 mg PO DAILY 08/09/24 cholecalciferol (vitamin D3) 125 mcg (5,000 unit) tablet (Vitamin D3) 125 mcg PO DAILY 08/09/24 losartan 100 mg tablet 100 mg PO DAILY 08/09/24 rosuvastatin 20 mg tablet 20 mg PO DAILY 08/09/24
[2024-08-10 13:58] VITALS: BMI 35.2
--- NOTE | 2024-08-10 14:03 | CASEMGMT ---
IZABELLA HARVEY Assessment Face to Face with patient for initial transition planning/care coordination assessment. IZABELLA HARVEY introduced self and role at [facility], pt voices understanding. Pt is A&Ox4 and is resting comfortably in bed and is calm. Pt at bedside. Care providers, pharmacy, and demographics verified. Admitting dx: KIM FAM Strata: 1 PCP: Shashank Morgan Specialists: Aline (Air Quality Consultant) Preferred Pharmacy: [facility] Insurance: MCR A/B, MMO Prescription Benefit: Yes LNOK: Richard (H) Living Arrangements: Pt lives with her SO, Son, DIL, and 3 grandchildren (ages 7,13, & 17) in a 2 story home with 2 steps to enter ADLs/IADLs: Independent Transportation: Self, . Denies concerns DME: Access to a W/C, FWW, BSC, and hospital bed but does not use. HHC/SNF: denies hx or needs Pt?s goal: Home Plan: Home with pt and to follow up with the eye doctor. No additional needs noted. Pt denies further questions or concerns at this time and states that she feels safe with this plan and denies further needs. Report given to WINE PASTEURIZER CM. Ra Whiting
== END 2024-08-10 14:06 | disposition home or self-care (01) | DRG 125 ==
LOC: ED 12:11 → PCU 16:22
PROVIDERS: Admitting Provider Family Medicine; Emergency Provider Emergency Medicine; PCP Family Medicine; Visit Provider Student in an Organized Health Care Education/Training Program
DX: H34.12 Central retinal artery occlusion, left eye (principal); I50.30 Unspecified diastolic (congestive) heart failure; E78.5 Hyperlipidemia, unspecified; I11.0 Hypertensive heart disease with heart failure; F32.A Depression, unspecified; I34.81 Nonrheumatic mitral (valve) annulus calcification; F41.9 Anxiety disorder, unspecified; H54.62 Unqualified visual loss, left eye, normal vision right eye; I35.0 Nonrheumatic aortic (valve) stenosis; Z90.710 Acquired absence of both cervix and uterus; Z79.82 Long term (current) use of aspirin; Z82.49 Family history of ischemic heart disease and other diseases of the circulatory system; Z79.02 Long term (current) use of antithrombotics/antiplatelets; Z79.899 Other long term (current) drug therapy
CPT/HCPCS: 36415; 70450; 70496; 70498; 70551; 80048; 80061; 84484; 85025; 85610; 85652; 85730; 86140; 93005; 93306; 97161; 97165; 99285; Q9967

== ENCOUNTER → 2024-11-20 | Outpatient (CLI) | payer MEDICARE, OTHER, SELFPAY ==
--- OUTSIDE RECORDS SUMMARY | 2024-11-20 09:52 | XMS RPT_ITS | CCD ---
Author Organization [facility] Care Team Providers Care Derrick Operator Name Role Phone Eddie WOODS, Dr. Encarnacion Primary Care Provider Eddie WOODS, Dr. Encarnacion Attending Provider Eddie WOODS, Dr. Encarnacion Referring Provider Shashank Matos Referring Unavailable Shashank Matos Attending Unavailable Shashank Matos Primary Care Unavailable Shashank Matos Primary Care Unavailable Kj Gustafson Consulting Unavailable Julius, Sierra Marcia Attending Unavailable Riley Martinez F Admitting Unavailable Adeli, Amir Consulting Unavailable Hinduja, Ainsley Consulting Unavailable Parag, Nan Consulting Unavailable Zha, Siria Consulting Unavailable Christopher, Gadiel Consulting Unavailable Hemant, Eli Consulting Unavailable BittarMaximino Consulting Unavailable Yo Butt Consulting Unavailable Abhijit Garrett Consulting Unavailable Mackenzie Torres Consulting Unavailable Adrian Aguilar Consulting Unavailable Judy Holguin Consulting Unavailable Salma Israel Consulting Unavailable Danii, Garfieldd Enrrique Consulting UnavailBijan Gutierrez Consulting Unavailable Blossom Alfred Consulting Unavailable Jonah Coley Consulting Unavailable Danuta Roberts Consulting Unavailable Mg Sauer Consulting Unavailable Riley Martinez Consulting Unavailable Kimberli Pro Attending Unavailable Shashank Matos Primary Care Unavailable Julius, Sierra Marcia Referring Unavailable Kimberli Pro Attending Unavailable Shashank Matos Primary Care Unavailable Shashank Matos Primary Care Unavailable Grace Martinezs F Admitting Unavailable Ramón Martinezolas F Consulting Unavailable Ramón Martinezolas F Attending Unavailable Kj Gustafson Consulting Unavailable Rochelleam, Sierra Marcia Attending Unavailable Adeli, Amir Consulting Unavailable Hinduja, Ainsley Consulting Unavailable Parag, Nan Consulting Unavailable Zha, Siria Consulting Unavailable Christopher, Gadiel Consulting Unavailable Eli Marcos Consulting Unavailable Maximino Ruelas Consulting Unavailable Yo Butt Consulting Unavailable Abhijit Garrett Consulting Unavailable Mackenzie Torres Consulting Unavailable Adrian Aguilar Consulting Unavailable Judy Holguin Consulting Unavailable Salma Israel Consulting Unavailable Uma Foy Consulting UnavailBijan Gutierrez Consulting Unavailable Blossom Alfred Consulting Unavailable Jonah Coley Consulting Unavailable Danuta Roberts Consulting Unavailable Mg Sauer Consulting Unavailable Sierra Madrid Consulting Unavailable Shashank Matos Referring Unavailable Shashank Matos Attending Unavailable Shashank Matos Primary Care Unavailable Shashank Matos Primary Care Unavailable Julius, Sierra Marcia Referring Unavailable Judy Madrida Marcia Attending Unavailable Janice Gonzalez Attending Unavailable Janice Gonzalez Referring Unavailable Shashank Matos Primary Care Unavailable Medications Current Medications Medication Drug Class(es) Dates Sig (Normalized) Sig (Original) aspirin 81 mg delayed release oral tablet (4 sources) Platelet Aggregation Inhibitor, Nonsteroidal Anti-inflammatory Drug Start: 02-16-2020 take 1 tablet by mouth once daily Aspirin 81 MG tablet,delayed release (DR/EC) Active 81 mg PO DAILY February 16, 2020 1:00am Cholecalciferol (Vitamin D3) (Vitamin D3) 5,000 UNIT capsule (4 sources) Start: 02-16-2020 take 1 capsule by mouth once daily Cholecalciferol (Vitamin D3) (Vitamin D3) 5,000 UNIT capsule Active 5000 U PO DAILY February 16, 2020 1:00am Start: 02-16-2020 take 1 capsule by mo [facility] once daily Cholecalciferol (Vitamin D3) (Vitamin D3) 5,000 UNIT capsule Active 5000 UNIT PO DAILY February 16, 2020 1:00am FLUoxetine 20 mg oral capsule (4 sources) Serotonin Reuptake Inhibitor Start: 02-16-2020 take 1 capsule by mouth once daily Fluoxetine 20 MG capsule Active 20 mg PO DAILY February 16, 2020 1:00am losartan potassium 50 mg oral tablet (4 sources) Angiotensin 2 Receptor Bari Start: 02-16-2020 take 1 tablet by mouth once daily Losartan 50 MG tablet Active 50 mg PO DAILY February 16, 2020 1:00am Multivitamin With Minerals (3 sources) Start: 02-16-2020 Multivitamin With Minerals Active 1 EACH PO DAILY February 16, 2020 1:00am Multivitamin With Minerals 1 EACH tablet (1 source) Start: 02-16-2020 take 1 tablet by mouth once daily Multivitamin With Minerals 1 EACH tablet Active 1 NMA PO DAILY February 16, 2020 1:00am naproxen sodium 220 mg oral capsule (4 sources) Nonsteroidal Anti-inflammatory Drug Start: 02-16-2020 take 3 capsules by mouth twice daily Naproxen Sodium 220 MG capsule Active 660 mg PO TWICE A DAY February 16, 2020 1:00am Start: 02-16-2020 take 660 mg by mouth twice eliceo ly Naproxen Sodium Active 660 MG PO TWICE A DAY February 16, 2020 1:00am rosuvastatin calcium 10 mg oral tablet (4 sources) HMG-CoA Reductase Inhibitor Start: 02-16-2020 take 1 tablet by mouth at bedtime Rosuvastatin 10 MG tablet Active 10 mg PO AT BEDTIME February 16, 2020 1:00am Problems Active Problems Problem Classification Problem Date Documented Da te Episodic/Chronic Disorders of lipid metabolism (1 source) Hyperlipidemia, unspecified; Translations: [Hyperlipidemia, unspecified] Onset: 07-06-2024 Chronic Essential hypertension (1 source) Essential (primary) hypertension; Translations: [Essential (primary) hypertension] Onset: 01-27-2024 Chronic Retinal detachments; defects; vascular occlusion; and retinopathy (2 sources) Central retinal artery occlusion, left eye; Translations: [Central retinal artery occlusion, unspecified eye] Onset: 08-17-2024 Chronic Past or Other Problems Problem Classification Problem Date Documented Da te Episodic/Chronic Other screening for suspected conditions (not mental disorders or infectious disease) (1 source) Encounter for screening mammogram for malignant neoplasm of breast; Translations: [Encounter for screening mammogram for malignant neoplasm of breast] Onset: 01-20-2024 Episodic Results Test Name Value Interpretation Reference Range Facility Basic Metabolic Profile (BMP )on 08-10-2024 BUN/CRE 16.8 RATIO Normal 01-25 [facility] Comment on above: Order Comment: Comme nts: NPO at [place] prior to lipid panel Performed By: #### L 500.4100, L100.0100, L500.2500 ####[facility] [address] [place], [place], [id number] Calcium [Mass/Vol] 9.6 mg/dL Normal 7.6-11.0 [facility] Comment on above: Order Comment: Comme nts: NPO at [place] prior to lipid panel Performed By: #### L 500.4100, L100.0100, L500.2500 ####[facility] [address] [place], [address] Chloride [Moles/Vol] 108 mmol/L Normal 98-108 [facility] Comment on above: Order Comment: Comme nts: NPO at [place] prior to lipid panel Performed By: #### L 500.4100, L100.0100, L500.2500 ####[facility] [address] [place], [address] CO2 [Moles/Vol] 23.6 mmol/L Normal 21.0-32.0 [facility] Comment on above: Order Comment: Comme nts: NPO at [place] prior to lipid panel Performed By: #### L 500.4100, L100.0100, L500.2500 ####[facility] [address] [place], [address] Creatinine [Mass/Vol] 0.91 mg/dL Normal 0.70-1.20 [facility] Comment on above: Order Comment: Comme nts: NPO at [place] prior to lipid panel Performed By: #### L 500.4100, L100.0100, L500.2500 ####[facility] [address] [place], [address] ECRCL 62.19 ml/min Normal 50-250 [facility] Comment on above: Order Comment: Comme nts: NPO at [place] prior to lipid panel Performed By: #### L 500.4100, L100.0100, L500.2500 ####[facility] [address] [place], [address] GAP 9 Normal 5-15 [facility] Comment on above: Order Comment: Comme nts: NPO at [place] prior to lipid panel Performed By: #### L 500.4100, L100.0100, L500.2500 ####[facility] [address] [place], [address] GFR/1.73 sq M.predicted among non-blacks MDRD (S/P/Bld) [Vol rate/Area] 68 mL/min/{1.73_m2} Normal >60 [facility] Comment on above: Order Comment: Comme nts: NPO at [place] prior to lipid panel Result Comment: mL/m in/1.73m2 CKD-EPI Creatinine Equation (2020) Performed By: #### L 500.4100, L100.0100, L500.2500 ####[facility] [address] [place], [address] Glucose [Mass/Vol] 92 mg/dL Normal 70-99 [facility] Comment on above: Order Comment: Comme nts: NPO at [place] prior to lipid panel Performed By: #### L 500.4100, L100.0100, L500.2500 ####[facility] [address] [place], [address] Potassium [Moles/Vol] 4.3 mmol/L Normal 3.3-5.1 [facility] Comment on above: Order Comment: Comme nts: NPO at [place] prior to lipid panel Performed By: #### L 500.4100, L100.0100, L500.2500 ####[facility] [address] [place], [address] Sodium [Moles/Vol] 141 mmol/L Normal 133-145 [facility] Comment on above: Order Comment: Comme nts: NPO at [place] prior to lipid panel Performed By: #### L 500.4100, L100.0100, L500.2500 ####[facility] [address] [place], [address] Urea nitrogen [Mass/Vol] 15 mg/dL Normal 4-19 [facility] Comment on above: Order Comment: Comme nts: NPO at [place] prior to lipid panel Performed By: #### L 500.4100, L100.0100, L500.2500 ####[facility] [address] [place], [address] Brain without Contraston Brain without Contrast [facility] Imaging Services [address] [place] [address] Brain without Contrast MR#: [id number] Acct: [id number] Name: MARIOLA KINSEY Rep #: [id number] : 1955 F 68 From: Beltran Anton MD PCP: Dr. Shashank Matos MD Status: ADM IN Study: Brain without Contrast Date of Exam: 08/10/24 Exam# [id number] Ordering Dr: Riley Martinez MD PROCEDURE: BRAIN WITHOUT CONTRAST (MRIBR), 08/10/2024 REASON FOR EXAM: CVA COMPARISON: 08/09/2024 TECHNIQUE: Multisequence multiplanar MRI brain was performed without intravenous contrast. Contrast: None. FINDINGS: Cerebrum: No acute infarct, visible mass, or definite intracranial hemorrhage identified. Mild/moderate scattered supratentorial white matter abnormalities are nonspecific but compatible with chronic microvascular ischemic changes. Cerebellum: Unremarkable. Brainstem: Unremarkable. Ventricles/extra-ax ial spaces: Age appropriate appearance. Major flow voids: Better evaluated on recent CTA. Paranasal sinuses: Trace to mild ethmoid mucosal thickening. Scalp/calvarium: Unremarkable. Orbits: Bilateral cataract surgery. Other: None. MRI/Brain without Contrast IMPRESSION: 1. No specific evidence of an acute intracranial process. 2. Additional description as above. Reading Location: [id number] CC: Dr. Riley Martinez MD; Dr. Shashank Matos MD [employer] Supervisor: Signed Normal [facility] CBC W/Diff, Automatedon Absolute Lymph 2.44 X10 3/uL Normal 0.83-4.51 [facility] Comment on above: Performed By: #### L 500.4100, L100.0100, L500.2500 ####[facility] [address] [place], [address] Absolute Neut 3.5 X10 3/uL Normal 2.0-7.7 [facility] Comment on above: Performed By: #### L 500.4100, L100.0100, L500.2500 ####[facility] [address] [place], [address] Basophils/100 WBC (Bld) 0.9 % Normal 0-1 [facility] Comment on above: Performed By: #### L 500.4100, L100.0100, L500.2500 ####[facility] [address] [place], [address] Eosinophils/100 WBC (Bld) 6.2 % High 0-5 [facility] Comment on above: Performed By: #### L 500.4100, L100.0100, L500.2500 ####[facility] [address] [place], [address] Erythrocyte distribution width (RBC) [Ratio] 13.3 % Normal 11.6-14.6 [facility] Comment on above: Performed By: #### L 500.4100, L100.0100, L500.2500 ####[facility] [address] [place], [address] Hematocrit (Bld) [Volume fraction] 43.5 % Normal 37-47 [facility] Comment on above: Performed By: #### L 500.4100, L100.0100, L500.2500 ####[facility] [address] [place], [address] Hemoglobin (Bld) [Mass/Vol] 14.7 g/dL Normal 12.0-15.0 [facility] Comment on above: Performed By: #### L 500.4100, L100.0100, L500.2500 ####[facility] [address] [place], [address] IG% 0.300 Normal 0.0-0.9 [facility] Comment on above: Result Comment: IG% - Immature Granulocytes (promyelocytes, myelocytes and metamyelocytes) > 1% indicates that a LEFT SHIFT is Present. Performed By: #### L 500.4100, L100.0100, L500.2500 ####[facility] [address] [place], [address] Lymphocytes/100 WBC (Bld) 35.0 % Normal 19-41 [facility] Comment on above: Performed By: #### L 500.4100, L100.0100, L500.2500 ####[facility] [address] [place], [address] MCH (RBC) [Entitic mass] 29.2 pg Normal 27.0-32.0 [facility] Comment on above: Performed By: #### L 500.4100, L100.0100, L500.2500 ####[facility] [address] [place], [address] MCHC (RBC) [Mass/Vol] 33.8 g/dL Normal 32-36 [facility] Comment on above: Performed By: #### L 500.4100, L100.0100, L500.2500 ####[facility] [address] [place], [address] MCV (RBC) [Entitic vol] 86.5 fL Normal 81-99 [facility] Comment on above: Performed By: #### L 500.4100, L100.0100, L500.2500 ####[facility] [address] [place], [address] Monocytes/100 WBC (Bld) 6.9 % Normal 0-10 [facility] Comment on above: Performed By: #### L 500.4100, L100.0100, L500.2500 ####[facility] [address] [place], [address] Neutrophils/100 WBC (Bld) 50.7 % Normal 47-70 [facility] Comment on above: Performed By: #### L 500.4100, L100.0100, L500.2500 ####[facility] [address] [place], [address] Nucleated RBC (Bld) [#/Vol] 0 10*3/uL Normal 0-5 [facility] Comment on above: Performed By: #### L 500.4100, L100.0100, L500.2500 ####[facility] [address] [place], [address] Platelet mean volume (Bld) [Entitic vol] 10.5 fL Normal 6.2-12.0 [facility] Comment on above: Performed By: #### L 500.4100, L100.0100, L500.2500 ####[facility] [address] [place], [address] Platelets (Bld) [#/Vol] 277 10*3/uL Normal 150-450 [facility] Comment on above: Performed By: #### L 500.4100, L100.0100, L500.2500 ####[facility] [address] [place], [address] RBC (Bld) [#/Vol] 5.03 10*6/uL Normal 4.2-5.4 [facility] Comment on above: Performed By: #### L 500.4100, L100.0100, L500.2500 ####[facility] [address] [place], [address] RDW SD 41.1 fl Normal 35.1-43.9 [facility] Comment on above: Performed By: #### L 500.4100, L100.0100, L500.2500 ####[facility] [address] [place], [address] WBC (Bld) [#/Vol] 7.0 10*3/uL Normal 4.4-11.0 [facility] Comment on above: Performed By: #### L 500.4100, L100.0100, L500.2500 ####[facility] [address] [place], [address] Lipid Profileon 08-10-2024 CHOL:HDL 4.84 Normal [facility] Comment on above: Order Comment: Comme nts: NPO at [place] prior to lipid panel Performed By: #### L 500.4100, L100.0100, L500.2500 ####[facility] [address] [place], [address] Cholesterol [Mass/Vol] 220 mg/dL High <=200 [facility] Comment on above: Order Comment: Comme nts: NPO at [place] prior to lipid panel Result Comment: Chol esterol level, Desirable <200 mg/dL Borderline high cholesterol 200-239 mg/dL High cholesterol >=240 mg/dL Recommendations of the NCEP Adult Treatment Panel for the following risk-cutoff thresholds for the [place] population. Performed By: #### L 500.4100, L100.0100, L500.2500 ####[facility] [address] [place], [address] Cholesterol in HDL [Mass/Vol] 46 mg/dL Normal [facility] Comment on above: Order Comment: Comme nts: NPO at [place] prior to lipid panel Result Comment: [place] onal Cholesterol Education Program (NCEP) guidelines: <40 mg/dL: Low HDL-cholesterol (major risk factor for CHD) >= 60 mg/dL: High HDL-cholesterol (negative risk factor for CHD) HDL-cholesterol is affected by a number of factors, e.g. smoking, exercise, hormones, sex and age. Performed By: #### L 500.4100, L100.0100, L500.2500 ####[facility] [address] [place], [address] Cholesterol in LDL [Mass/Vol] 143 mg/dL Normal [facility] Comment on above: Order Comment: Comme nts: NPO at [place] prior to lipid panel Result Comment: Bord hsghxr=628-408 mg/dL Higher Asei=898 mg/dL or greater Performed By: #### L 500.4100, L100.0100, L500.2500 ####[facility] [address] [place], [address] Cholesterol in VLDL [Mass/Vol] 32 mg/dL Normal 5-40 [facility] Comment on above: Order Comment: Comme nts: NPO at [place] prior to lipid panel Performed By: #### L 500.4100, L100.0100, L500.2500 ####[facility] [address] [place], [address] Triglyceride [Mass/Vol] 159 mg/dL Normal [facility] Comment on above: Order Comment: Comme nts: NPO at [place] prior to lipid panel Result Comment: The drugs N-Acetylcysteine and Metamizole may falsely depress this assay. Normal range: <150 mg/dL Borderline High: 150-199 mg/dL High: 200-499 mg/dL Very High: >500 mg/dL Performed By: #### L 500.4100, L100.0100, L500.2500 ####[facility] [address] [place], [address] MR/CON.PCM.NEon 08-10-2024 MR/CON.PCM.NE [facility] Medical Records Department [address] [place] [address] Consultation - Neurology 08/10/24 1219 MR#: [id number] Acct: [id number] Name: MARIOLA KINSEY Rep #: [id number] : 1955 68 From: Ainsley Ritter MD PCP: Dr. Shashank Matos MD Status:ADM IN [facility] Assessment and Plan: Stroke Assessment/Plan MARIOLA KINSEY is a 68 F with a history of HTN, HLD who presents for evaluation of painless loss of vision in left eye. 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 Neurological examination shows non focal expect left eye poor vision. Neuroimaging shows CTA Negative, MRi Brain No acute stroke, CRP and ESR normal, LDL 143. Work up shows no acute stroke and has CRAO Plan Continue ASA Strict BP control Statin dose increased ECHO report pending. 30 Day Event monitor to r/o other causes of ECHO is negative Thanks for consult Spent 70 minutes in evaluation and management of this patient. HPI Consult Data Date of Consult: 08/10/24 HPI Narrative HPI Narrative: MARIOLA KINSEY, is a 68 F with a history of hypertension, HLD who presents with loss of vision in her left eye. She woke up yesterday morning around 4 AM and noticed that she could not see out of her left eye. She can see only from a small portion of the left eye. She was seen by ophthalmology in the outpatient setting and there was concern for central retinal artery occlusion, she has very little pupillary reaction on the left side. No pain but she cannot see out of it she says that it feels that there is a patch over her eye. She denies having other symptoms like slurred speech, weakness or numbness. ESR and CRP are negative ruling out temporal arteritis. CTA of the head and neck was negative for any major vessel occlusion, AVM or aneurysm. [facility] Medical History (Updated 08/09/24 @ 16:[address] Riley Martinez MD) Cataract Hypertension Home Medications ???Medication ???Instructions ???Recorded ???Last Taken ???Type aspirin 81 mg tablet,delayed 81 mg PO DAILY 02/16/20 08/09/24 H istory release multivitamin with minerals 1 ea PO DAILY 02/16/20 08/09/24 Hi story naproxen sodium 220 mg capsule 660 mg PO BID 02/16/20 08/09/24 Hi story ascorbic acid (vitamin C) 500 mg 500 mg PO DAILY 08/09/24 08/09/24 History tablet calcium carbonate 520 mg PO DAILY 08/09/24 08/09/24 History cholecalciferol (vitamin D3) 125 125 mcg PO DAILY 08/09/24 08/09/24 History mcg (5,000 unit) tablet (Vitamin D3) losartan 100 mg tablet 100 mg PO DAILY 08/09/24 08/09/24 History rosuvastatin 20 mg tablet 20 mg PO DAILY 08/09/24 08/09/24 H istory Allergy/AdvReac Type Severity Reaction Status Date / Time No Known Allergies Allergy Verified 08/09/24 11:42 Family History (Updated 08/09/24 @ 16:[address] Riley Martinez MD) Other CVA (cerebral vascular accident) Heart disease Hypertension Myocardial infarction Surgical History (Updated 08/09/24 @ 16:[address] Riley Martinez MD) Status post total knee replacement, right Status post hysterectomy Status post appendectomy Social History Smoking Status: Never smoker Vital Signs Vital Signs Vital Signs: 08/09/24 12:36 08/09/24 13:07 08/09/24 15:00 Temperature Temperature Source Pulse Rate 76 74 78 Pulse Strength Respiratory Rate 18 16 18 Respiratory Effort Respiratory Depth Respiratory Pattern Blood Pressure 158/74 H 158/74 H 144/69 H Blood Pressure Mean 102 102 94 Blood Pressure Source Blood Pressure Position Blood Pressure Location Pulse Ox 97 97 98 Oxygen Delivery Method Room Air Room Air Room Air 08/09/24 15:44 08/09/24 17:00 08/09/24 17:15 Temperature 98.0 F 97.3 F L Temperature Source Temporal Pulse Rate 85 72 Pulse Strength Normal (2+) Respiratory Rate 18 18 Respiratory Effort Respiratory Depth Respiratory Pattern Blood Pressure 144/69 H 154/75 H Blood Pressure Mean 94 101 Blood Pressure Source Monitor Blood Pressure Position Semi-Fowlers Blood Pressure Location Right Forearm Pulse Ox 99 99 Oxygen Delivery Method Room Air 08/09/24 17:26 08/09/24 21:15 08/09/24 21:33 Temperature 97.3 F L Temperature Source Temporal Pulse Rate 80 Pulse Strength Respiratory Rate 18 Respiratory Effort Normal Non-Labored Normal Non-Labored Respiratory Depth Normal Normal Respiratory Pattern Normal Normal Blood Pressure 169/78 H Blood Pressure Mean 108 Blood Pressure Source Monitor Blood Pressure Position Semi-Fowlers Blood Pressure Location Right Arm Pulse Ox 97 Oxygen Delivery Method Room Air Room Air Room Air 08/09/24 21:42 08/10/24 01:15 08/10/24 01:20 Temperature (more content not included)... Normal [facility] 12 Lead EKGon 08-09-2024 12 Lead EKG [facility] Cardiovascular Services [address] [place] [address] 12 Lead EKG 08/09/24 1239 MR#: [id number] Acct: [id number] Name: MARIOLA KINSEY Rep #: [id number] : 1955 68 From: Prince Horton MD Attending Dr: Dr. Sierra Madrid MD Status: DI S IN Ordering Dr: Ashkan Yarbrough DO Date: 08/09/24 Location: [facility] Sex: F C Admitted: 08/09/24 Test Reason : NEURO SX Blood Pressure : */* mmHG Vent. Rate : 74 BPM Atrial Rate : 74 BPM P-R Int : 158 ms QRS Dur : 90 ms QT Int : 378 ms P-R-T Axes : 45 -35 -17 degrees QTcB Int : 419 ms Sinus rhythm with Fusion complexes Left axis deviation Moderate voltage criteria for LVH, may be normal variant ( R in aVL , Mayco product ) Nonspecific T wave abnormality Abnormal ECG Confirmed by Prince Horton ([id number]), desk editor NATALYA PETERSON ([id number]) on 08/14/2024 1:03:51 PM Referred By: BERENICE/KARTHIK Confirmed By: Prince Horton 08/14/24 1303 Date Prince Horton MD CC: Dr. Sierra Madrid MD; Dr. Shashank Matos MD; Dr. Ashkan Yarbrough DO Signed Normal [facility] Basic Metabolic Profile (BMP )on 08-09-2024 BUN/CRE 18.7 RATIO Normal 10-20 [facility] Comment on above: Performed By: #### L 300.4310, L500.2500, L100.0100, L501.4021, L300.3900 ####[facility] [address] [place], [address] Calcium [Mass/Vol] 9.9 mg/dL Normal 7.6-11.0 [facility] Comment on above: Performed By: #### L 300.4310, L500.2500, L100.0100, L501.4021, L300.3900 ####[facility] [address] [place], [address] Chloride [Moles/Vol] 108 mmol/L Normal 98-108 [facility] Comment on above: Performed By: #### L 300.4310, L500.2500, L100.0100, L501.4021, L300.3900 ####[facility] [address] [place], [address] CO2 [Moles/Vol] 21.7 mmol/L Normal 21.0-32.0 [facility] Comment on above: Performed By: #### L 300.4310, L500.2500, L100.0100, L501.4021, L300.3900 ####[facility] [address] [place], [address] Creatinine [Mass/Vol] 0.95 mg/dL Normal 0.70-1.20 [facility] Comment on above: Performed By: #### L 300.4310, L500.2500, L100.0100, L501.4021, L300.3900 ####[facility] [address] [place], [address] ECRCL 57.95 ml/min Normal 50-250 [facility] Comment on above: Performed By: #### L 300.4310, L500.2500, L100.0100, L501.4021, L300.3900 ####[facility] [address] [place], [address] GAP 10 Normal 5-15 [facility] Comment on above: Performed By: #### L 300.4310, L500.2500, L100.0100, L501.4021, L300.3900 ####[facility] [address] [place], [address] GFR/1.73 sq M.predicted among non-blacks MDRD (S/P/Bld) [Vol rate/Area] 65 mL/min/{1.73_m2} Normal >60 [facility] Comment on above: Result Comment: mL/m in/1.73m2 CKD-EPI Creatinine Equation (2020) Performed By: #### L 300.4310, L500.2500, L100.0100, L501.4021, L300.3900 ####[facility] [address] [place], [address] Glucose [Mass/Vol] 105 mg/dL High 70-99 [facility] Comment on above: Performed By: #### L 300.4310, L500.2500, L100.0100, L501.4021, L300.3900 ####[facility] [address] [place], [address] Potassium [Moles/Vol] 4.5 mmol/L Normal 3.3-5.1 [facility] Comment on above: Performed By: #### L 300.4310, L500.2500, L100.0100, L501.4021, L300.3900 ####[facility] [address] [place], [address] Sodium [Moles/Vol] 140 mmol/L Normal 133-145 [facility] Comment on above: Performed By: #### L 300.4310, L500.2500, L100.0100, L501.4021, L300.3900 ####[facility] [address] [place], [address] Urea nitrogen [Mass/Vol] 18 mg/dL Normal 4-19 [facility] Comment on above: Performed By: #### L 300.4310, L500.2500, L100.0100, L501.4021, L300.3900 ####[facility] [address] [place], [address] CBC W/Diff, Automatedon 05-0 4-5 Absolute Lymph 1.81 X10 3/uL Normal 0.83-4.51 [facility] Comment on above: Performed By: #### L 300.4310, L500.2500, L100.0100, L501.4021, L300.3900 ####[facility] [address] [place], [address] Absolute Neut 3.7 X10 3/uL Normal 2.0-7.7 [facility] Comment on above: Performed By: #### L 300.4310, L500.2500, L100.0100, L501.4021, L300.3900 ####[facility] [address] [place], [address] Basophils/100 WBC (Bld) 1.2 % High 0-1 [facility] Comment on above: Performed By: #### L 300.4310, L500.2500, L100.0100, L501.4021, L300.3900 ####[facility] [address] [place], [address] Eosinophils/100 WBC (Bld) 4.8 % Normal 0-5 [facility] Comment on above: Performed By: #### L 300.4310, L500.2500, L100.0100, L501.4021, L300.3900 ####[facility] [address] [place], [address] Erythrocyte distribution width (RBC) [Ratio] 13.2 % Normal 11.6-14.6 [facility] Comment on above: Performed By: #### L 300.4310, L500.2500, L100.0100, L501.4021, L300.3900 ####[facility] [address] [place], [address] Hematocrit (Bld) [Volume fraction] 42.5 % Normal 37-47 [facility] Comment on above: Performed By: #### L 300.4310, L500.2500, L100.0100, L501.4021, L300.3900 ####[facility] [address] [place], [address] Hemoglobin (Bld) [Mass/Vol] 14.5 g/dL Normal 12.0-15.0 [facility] Comment on above: Performed By: #### L 300.4310, L500.2500, L100.0100, L501.4021, L300.3900 ####[facility] [address] [place], [address] IG% 0.500 Normal 0.0-0.9 [facility] Comment on above: Result Comment: IG% - Immature Granulocytes (promyelocytes, myelocytes and metamyelocytes) > 1% indicates that a LEFT SHIFT is Present. Performed By: #### L 300.4310, L500.2500, L100.0100, L501.4021, L300.3900 ####[facility] [address] [place], [address] Lymphocytes/100 WBC (Bld) 27.9 % Normal 19-41 [facility] Comment on above: Performed By: #### L 300.4310, L500.2500, L100.0100, L501.4021, L300.3900 ####[facility] [address] [place], [address] MCH (RBC) [Entitic mass] 29.5 pg Normal 27.0-32.0 [facility] Comment on above: Performed By: #### L 300.4310, L500.2500, L100.0100, L501.4021, L300.3900 ####[facility] [address] [place], [address] MCHC (RBC) [Mass/Vol] 34.1 g/dL Normal 32-36 [facility] Comment on above: Performed By: #### L 300.4310, L500.2500, L100.0100, L501.4021, L300.3900 ####[facility] [address] [place], [address] MCV (RBC) [Entitic vol] 86.4 fL Normal 81-99 [facility] Comment on above: Performed By: #### L 300.4310, L500.2500, L100.0100, L501.4021, L300.3900 ####[facility] [address] [place], [address] Monocytes/100 WBC (Bld) 7.9 % Normal 0-10 [facility] Comment on above: Performed By: #### L 300.4310, L500.2500, L100.0100, L501.4021, L300.3900 ####[facility] [address] [place], [address] Neutrophils/100 WBC (Bld) 57.7 % Normal 47-70 [facility] Comment on above: Performed By: #### L 300.4310, L500.2500, L100.0100, L501.4021, L300.3900 ####[facility] [address] [place], [address] Nucleated RBC (Bld) [#/Vol] 0 10*3/uL Normal 0-5 [facility] Comment on above: Performed By: #### L 300.4310, L500.2500, L100.0100, L501.4021, L300.3900 ####[facility] [address] [place], [address] Platelet mean volume (Bld) [Entitic vol] 10.2 fL Normal 6.2-12.0 [facility] Comment on above: Performed By: #### L 300.4310, L500.2500, L100.0100, L501.4021, L300.3900 ####[facility] [address] [place], [address] Platelets (Bld) [#/Vol] 264 10*3/uL Normal 150-450 [facility] Comment on above: Performed By: #### L 300.4310, L500.2500, L100.0100, L501.4021, L300.3900 ####[facility] [address] [place], [address] RBC (Bld) [#/Vol] 4.92 10*6/uL Normal 4.2-5.4 [facility] Comment on above: Performed By: #### L 300.4310, L500.2500, L100.0100, L501.4021, L300.3900 ####[facility] [address] [place], [address] RDW SD 40.9 fl Normal 35.1-43.9 [facility] Comment on above: Performed By: #### L 300.4310, L500.2500, L100.0100, L501.4021, L300.3900 ####[facility] [address] [place], [address] WBC (Bld) [#/Vol] 6.5 10*3/uL Normal 4.4-11.0 [facility] Comment on above: Performed By: #### L 300.4310, L500.2500, L100.0100, L501.4021, L300.3900 ####[facility] [address] [place], [address] CRPon 08-09-2024 C-REACTIVE PROT < 3.00 Normal 0.0-3.0 [facility] Comment on above: Performed By: #### L 501.6710, L101.9900 ####[facility] [address] [place], [place], [address] CTA Head AND Neck W/ Contras ton 08-09-2024 CTA Head AND Neck W/ Contrast [facility] Imaging Services [address] [place] [address] CTA Head AND Neck W/ Contrast MR#: [id number] Acct: [id number] Name: MARIOLA KINSEY Rep #: [id number] : 1955 F 68 From: Nerissa Calles nd, MD PCP: Dr. Shashank Matos MD Status: REG ER Study: CTA Head AND Neck W/ Contrast Date of Exam: Exam# [id number] Ordering Dr: Ashkan Yarbrough DO PROCEDURE: CTA HEAD AND NECK W/ CONTRAST 08/09/2024 REASON FOR EXAM: ACUTE VISION LOSS IN LEFT EYE TECHNIQUE: CTA imaging of the head and neck from the aortic arch to the skull vertex with out contrast and with intravenous contrast. Multiplanar and multisequence images were obtained. 3D post processing was performed CONTRAST: Isovue 370 VOLUME: 100 mL One or more dose reduction techniques were used (e.g., Automated exposure control, adjustment of the mA and/or kV according to patient size, use of iterative reconstruction technique). RADIATION DOSE SUMMARY: CTDlvol: 30 mGy DLP: 800 mGycm COMPARISON: Same-day CT head. FINDINGS: Standard three-vessel aortic arch. No significant calcific plaque. The bilateral vertebral arteries are widely patent without focal stenosis or occlusion. Mixed calcific plaque of the bilateral cervical carotid arteries without focal stenosis or occlusion by NASCET criteria. Calcific plaque of the bilateral carotid siphons without focal stenosis or occlusion. The bilateral anterior, middle and posterior cerebral arteries are widely patent. Calcific plaque of the V4 segment of the right vertebral artery resulting in mild narrowing. No aneurysm or AVM. Major venous structures: Unremarkable. Atretic right transverse sinus, a normal variant. Other findings: Cervical spondylosis. Opacification of a few right ethmoid air cells. CT/CTA Head AND Neck W/ Contrast IMPRESSION: No large vessel occlusion, AVM or aneurysm. Reading Location: [facility] CC: Dr. Shashank Matos MD; Dr. Ashkan Yarbrough DO [employer] Supervisor: Signed Normal [facility] Echo Completeon 08-09-2024 Echo Complete [facility] [place] [address] Echo Complete 08/10/24 0847 MR#: [id number] Acct: [id number] Name: MARIOLA KINSEY Rep #: [id number] : 1955 68 From: Kimberli Pro MD Attending Dr: Dr. Sierra Madrid MD Status: AD M IN Ordering Dr: Riley Martinez MD Date: 08/09/24 Location: [facility] Sex: F C Admitted: 08/09/24 Reason For Study Reason For Study: TIA/CVA Procedure This was a 2D Doppler, Color Flow transthoracic echocardiogram. Exam performed portable in patient room. Left Ventricle Normal size and thickness. The LV systolic function is normal. EF is 65 %. Stage 1 diastolic dysfunction. Right Ventricle Normal right ventricle. Atria The left and right atria are normal. Mitral Valve Mild mitral annular calcification. Tricuspid Valve Normal tricuspid valve. Trivial tricuspid valve insufficiency. Normal pulmonary artery pressure. Aortic Valve Trisinus/trileaflet aortic valve. Mild-Moderate (1-2+) aortic valve insufficiency. Pulmonic Valve The pulmonic valve is not well visualized. Trivial pulmonic valve insufficiency. Great Vessels Normal sized aortic root. Pericardium/Pleural No pericardial effusion. MMode/2D Measurements Calculations LVIDd: 5.1 cm IVSd: 0.99 cm Ao root diam: 3.1 cm LVIDs: 3.2 cm LVPWd: 0.97 cm RVDd: 3.0 cm FS: 37.6 % __ LAV(MOD-bp): 35.2 ml LVAd ap4: 29.2 cm2 SV(MOD-sp4): 52.1 ml LAV(MOD-bp) Indexed: 19.1 ml/m2 LVLd ap4: 7.7 cm SI(MOD-sp4): 28.3 ml/m2 LAV(MOD-sp2): 35.5 ml EDV(MOD-sp4): 91.8 ml LAV(MOD-sp4): 34.9 ml EDV(sp4-el): 94.4 ml LVAs ap4: 17.1 cm2 LVLs ap4: 6.5 cm ESV(MOD-sp4): 39.7 ml ESV(sp4-el): 38.1 ml EF(MOD-sp4): 56.8 % EF(sp4-el): 59.6 % __ SV(sp4-el): 56.3 ml LA A4 area: 14.6 cm2 LA dimension(2D): 3.2 cm __ RA A4 area: 11.6 cm2 TAPSE: 1.8 cm Time Measurements MV dec time: 0.26 sec Doppler Measurements Calculations MV E max emigdio: 58.5 cm/sec Lat Peak E' Emigdio: 8.4 cm/sec Med Peak E' Emigdio: 7.8 cm/sec MV A max emigdio: 58.3 cm/sec E/E' lat: 7.0 E/E' med: 7.5 MV E/A: 1.0 __ Ao V2 max: 168.8 cm/sec AI max emigdio: 428.3 cm/sec LV V1 max: 96.5 cm/sec Ao max P.4 mmHg AI max P.4 mmHg LV V1 max P.7 mmHg AI dec slope: 308.2 cm/sec2 AI P1/2t: 407.0 msec __ PA V2 max: 93.8 cm/sec TR max emigdio: 257.9 cm/sec TR max P.6 mmHg ECHO/Echo Complete Interpretation Summary The LV systolic function is normal. EF is 65 %. Stage 1 diastolic dysfunction. Mild-Moderate (1-2+) aortic valve insufficiency. Mild mitral annular calcification. __ Ordering Physician: Riley Martinez Referring Physician: SHASHANK MATOS Performed By: Kenzie Gates RDCS 08/10/24 1327 Date Kimberli Pro MD CC: Dr. Sierra Madrid MD; Dr. Riley Martinez MD; Dr. Shashank Matos MD Date Dictated: 08/10/24 0847 Date Transcribed: 08/10/24 1327 [employer] Supervisor: Signed Normal [facility] Emergency Department Summary on 08-09-2024 Emergency Department Summary [facility] Medical Records Department [address] [place] [address] Emergency Department Summary 08/09/24 MR#: [id number] Acct: [id number] Name: MARIOLA KINSEY Rep #: [id number] : 1955 68 From: Ashkan Yarbrough DO PCP: Dr. Shashank Matos MD Status:REG ER Location: ED HPI History of Present Illness Chief Complaint: Eye Problem [facility] Medical History (Updated 08/09/24 @ 12:19 by Nalini Bocanegra Self) Cataract Hypertension Home Medications ???Medication ???Instructions ???Recorded ???Last Taken ???Type aspirin 81 mg tablet,delayed 81 mg PO DAILY 02/16/20 08/09/24 H istory release fluoxetine 20 mg capsule 20 mg PO DAILY 02/16/20 08/09/24 H istory multivitamin with minerals 1 ea PO DAILY 02/16/20 08/09/24 Hi story naproxen sodium 220 mg capsule 660 mg PO BID 02/16/20 08/09/24 Hi story ascorbic acid (vitamin C) 500 mg 500 mg PO DAILY 08/09/24 08/09/24 History tablet calcium carbonate 520 mg PO DAILY 08/09/24 08/09/24 History cholecalciferol (vitamin D3) 125 125 mcg PO DAILY 08/09/24 08/09/24 History mcg (5,000 unit) tablet (Vitamin D3) losartan 100 mg tablet 100 mg PO DAILY 08/09/24 08/09/24 History rosuvastatin 20 mg tablet 20 mg PO DAILY 08/09/24 08/09/24 H istory Allergy/AdvReac Type Severity Reaction Status Date / Time No Known Allergies Allergy Verified 08/09/24 11:42 Social History Smoking Status: Never smoker EXAM Physical Exam Const Vital Signs: 08/09/24 11:39 Temperature 97.3 F L Temperature Source Oral Pulse Rate 101 H Respiratory Rate 19 H Blood Pressure 192/86 H Blood Pressure Mean 121 Pulse Ox 98 Oxygen Delivery Method Room Air [facility] Narrative Medical decision making narrative: HISTORY OF PRESENT ILLNESS: Chief complaint: Painless vision loss in left eye 68-year-old female presents with painless vision loss in left eye. This occurred when she awoke from sleep this morning at 4 AM. Her last known well was 11 PM on 08/08/2024. Denies any falls or trauma. Denies any other focal neurologic deficits including facial drooping, slurred speech, incoordination, loss of movement or sensation in the extremities. No history of stroke. No history of high blood pressure high cholesterol. No recent trauma. No fevers or chills or neck stiffness. REVIEW OF SYSTEMS: Pertinent positives: monocular Vision loss Pertinent negatives: XIE PHYSICAL EXAM: Nursing triage notes reviewed, Vital signs reviewed Constitutional: please see [facility] HENT: MMM, no temporal artery tenderness Eyes: Pupils equal round and reactive to light, Extraocular muscles intact Neck: No stridor, no JVD, full neck ROM Lungs: Clear to auscultation, No wheezing or rales. No increased work of breathing, no conversational dyspnea, no accessory muscle use, no nasal flaring. No respiratory distress noted Heart: Regular rate and rhythm, No murmurs, No rubs and No gallops, 2+ distal pulses (radial, femoral, posterior tibial) in all extremities Abdomen: Soft, there is no tenderness, rigidity, rebound or guarding, no obvious peritoneal signs, no palpable pulsatile abdominal masses, no auscultated abdominal bruit : No CVAT Extremities: No edema Neuro: Alert, oriented for space and time, cannot perceive light in left eye, extraocular muscles intact, complete vision loss in left eye chemo visual olson unable to be tested in the left. Remainder of cranial nerves intact. Full strength and sensation in extremities. No signs of ataxia. NIH of 2 for visual loss in left eye. Skin: No rash or lesions noted MEDICAL DECISION MAKING: Chief Complaint: please see [facility] External records reviewed: Reviewed prior imaging studies Factors affecting care: hypertension, hyperlipidemia Social determinants of health: denies illicit drug use History obtained from others: Consults: Ophthalmology (Dr. Mireles) Stroke Neurology (Dr. Roberts) recommended against transfer, TNK or thrombectomy Internal Medcine (Dr. Martinez) MDM Narrative: The patient was initially hypertensive blood pressure 192/86, tachycardic with a heart rate of 101, afebrile. Initial exam with NIH of 2. The patient was not a candidate for TNK as she was outside the 4 and half hour window. Given the CTA of her head neck was negative for large vessel occlusion she is not a candidate for thrombectomy, stroke neurology agrees with this course of action. Since she has gotten ophthalmology evaluation today she does not need transferred for ophthalmology. I considered the following differential diagnosis: CRAO, Acute CVA, TIA, ICH, Mass ALL IMAGES (IF OBTAINED) HAVE BEEN PERSONALLY REVIEWED AND INTERPRETED BY MYSELF. ESR negative CRP negative CT/CTA negative for ICH, mass of LVO EKG with normal sinus rhyth (more content not included)... Normal [facility] Erythrocyte Sed Rateon 08-09 SED RATE 20 mm/hr Normal 0-30 [facility] Comment on above: Performed By: #### L 501.6710, L101.9900 ####[facility] [address] [facility] [place], [address] H AND P Exam - Hospitaliston 08-09-2024 H&P Exam - Hospitalist [facility] Medical Records Department [address] [place] [address] H P Exam - Hospitalist 08/09/24 1624 MR#: [id number] Acct: [id number] Name: MARIOLA KINSEY ZACKARY Rep #: [id number] : 1955 68 From: Riley Martinez MD PCP: Dr. Shashank Matos MD Status:ADM IN Location: [facility] [id number] HPI - General General Date of Admission: 08/09/24 HPI Narrative MARIOLA KINSEY, is a 68 F who presents to the hospital with loss of vision in her left eye. She woke up this morning around 4 AM and noticed that she could not see out of her left eye. She was seen by ophthalmology in the outpatient setting and there was concern for central retinal artery occlusion, she has very little pupillary reaction on the left side. No pain but she cannot see out of it she says that it feels that there is a patch over her eye. She says that she never had a stroke before and she was sent to the ER for further evaluation. ESR and CRP are negative ruling out temporal arteritis. CTA of the head and neckIs negative for any major vessel occlusion, AVM or aneurysm. [facility] Medical History (Updated 08/09/24 @ 16:[address] Riley Martinez MD) Cataract Hypertension Home Medications ???Medication ???Instructions ???Recorded ???Last Taken ???Type aspirin 81 mg tablet,delayed 81 mg PO DAILY 02/16/20 08/09/24 H istory release fluoxetine 20 mg capsule 20 mg PO DAILY 02/16/20 08/09/24 H istory multivitamin with minerals 1 ea PO DAILY 02/16/20 08/09/24 Hi story naproxen sodium 220 mg capsule 660 mg PO BID 02/16/20 08/09/24 Hi story ascorbic acid (vitamin C) 500 mg 500 mg PO DAILY 08/09/24 08/09/24 History tablet calcium carbonate 520 mg PO DAILY 08/09/24 08/09/24 History cholecalciferol (vitamin D3) 125 125 mcg PO DAILY 08/09/24 08/09/24 History mcg (5,000 unit) tablet (Vitamin D3) losartan 100 mg tablet 100 mg PO DAILY 08/09/24 08/09/24 History rosuvastatin 20 mg tablet 20 mg PO DAILY 08/09/24 08/09/24 H istory Allergy/AdvReac Type Severity Reaction Status Date / Time No Known Allergies Allergy Verified 08/09/24 11:42 Family History (Updated 08/09/24 @ 16:[address] Riley Martinez MD) Other CVA (cerebral vascular accident) Heart disease Hypertension Myocardial infarction Surgical History (Updated 08/09/24 @ 16:[address] Riley Martinez MD) Status post total knee replacement, right Status post hysterectomy Status post appendectomy Social History Smoking Status: Never smoker ROS Constitutional Constitutional: Denies chills, fatigue, fever(s) or malaise Eyes Eyes: Reports change in vision left; Denies blurry vision ENT HEENT: Denies headache(s) or nasal discharge Cardiovascular Cardiovascular: Denies chest pain, dyspnea on exertion or syncope Respiratory/Chest Respiratory/Chest: Denies cough, shortness of breath at rest or shortness of breath with exertion Gastrointestinal Gastrointestinal: Denies constipation, diarrhea, nausea or vomiting Genitourinary Genitourinary: Denies dysuria Neurologic Neurologic: Denies focal weakness, numbness or tremor(s) Psychiatric Psychiatric: Denies anxiety or depression Vital Signs Vital Signs Vital Signs: 08/09/24 11:39 08/09/24 12:06 08/09/24 12:06 Temperature 97.3 F L Temperature Source Oral Pulse Rate 101 H 78 Respiratory Rate 19 H 18 Blood Pressure 192/86 H 184/92 H Blood Pressure Mean 121 122 Pulse Ox 98 97 98 Oxygen Delivery Method Room Air Room Air Room Air 08/09/24 12:36 08/09/24 13:07 08/09/24 15:00 Temperature Temperature Source Pulse Rate 76 74 78 Respiratory Rate 18 16 18 Blood Pressure 158/74 H 158/74 H 144/69 H Blood Pressure Mean 102 102 94 Pulse Ox 97 97 98 Oxygen Delivery Method Room Air Room Air Room Air 08/09/24 15:44 Temperature 98.0 F Temperature Source Pulse Rate 85 Respiratory Rate 18 Blood Pressure 144/69 H Blood Pressure Mean 94 Pulse Ox 99 Oxygen Delivery Method Weight Weight: 165 lb 14.4 oz Body Mass Index (BMI) 26.7 Physical Exam Narrative General: Alert, Oriented x3, Cooperative, No apparent distress HEENT: Atraumatic, diminished pupillary reaction on the left with no vision on the left, right eye normal Oral: Moist Mucosa Neck: Supple, No JVD Lungs: Clear to auscultation, Normal air movement, No rhonchi, No wheeze, No rales Cardiovascular: Regular rate, Regular Rhythm, Normal S1, Normal S2, No murmurs Abdomen: Soft, Non Tender, Non-Distended, No Hepato-splenomegaly Extremities: No edema, Capillary Refill Less than 3 Seconds Skin: No rashes, No breakdown Musculoskeletal: No Tenderness to Palpation of Joints or Extremities Neurological: No focal neurological deficits, Motor Exam 5/5 strength (more content not included)... Normal [facility] L499.0042on 08-09-2024 Trop T High Sen 10 ng/L Normal <=14 [facility] Comment on above: Performed By: #### L 499.0042 ####[facility] [id number] [place], [address] L499.0043on 08-09-2024 Trop T High Sen Normal <=14 [facility] Comment on above: Result Comment: Juli duke via OM: Ordered Performed By: #### L 499.0043 ####[facility] [id number] [place], [address] L501.4021on 08-09-2024 Trop T High Sen 10 ng/L Normal <=14 [facility] Comment on above: Performed By: #### L 300.4310, L500.2500, L100.0100, L501.4021, L300.3900 ####[facility] [id number] [place], [address] Partial Thromboplast Timeon 08-09-2024 aPTT Coag (Bld) [Time] 33.1 s Normal 24.1-36.2 [facility] Comment on above: Performed By: #### L 300.4310, L500.2500, L100.0100, L501.4021, L300.3900 ####[facility] [address] [place], [address] Prothrombin Time w/INRon INR Coag (PPP) [Relative time] 0.9 {INR} Normal [facility] Comment on above: Performed By: #### L 300.4310, L500.2500, L100.0100, L501.4021, L300.3900 ####[facility] [address] [place], [address] PT Coag (PPP) [Time] 12.4 s Normal 11.7-14.9 [facility] Comment on above: Performed By: #### L 300.4310, L500.2500, L100.0100, L501.4021, L300.3900 ####[facility] [address] [place], [address] STROKE Brain/Head without Co nton 08-09-2024 STROKE Brain/Head without Cont [facility] Imaging Services [address] [place] [address] STROKE Brain/Head without Cont MR#: [id number] Acct: [id number] Name: MARIOLA KINSEY Rep #: [id number] : 1955 F 68 From: Nerissa Calles [place], [place] PCP: Dr. Shashank Matos MD Status: REG ER Study: STROKE Brain/Head without Cont Date of Exam: 0 08/09/24 Exam# [id number] Ordering Dr: Ashkan Yarbrough DO EXAM: STROKE BRAIN/HEAD WITHOUT CONT CLINICAL HISTORY: 68 y/o F with NEURO DEFICIT, ACUTE, STROKE SUSPECTED. COMPARISON: None. TECHNIQUE: Routine CT imaging of the head without IV contrast. Additional multiplanar reformats were obtained. Dose reduction techniques were used including intermediate exposure control (AEC),iterative reconstruction technique, and/or mA and/or KV dose adjustments based on patient's size. FINDINGS: The ventricles and subarachnoid spaces are age-appropriate. Mild scattered supratentorial white matter hypodensities. The chambers-white matter interfaces are otherwise maintained. No acute intracranial herniation or hemorrhage. Prior ocular lens replacements. The mastoids and visualized paranasal sinuses are well-aerated. No acute calvarial fracture or scalp hematoma. CT/STROKE Brain/Head without Cont IMPRESSION: No acute intracranial finding. Reading Location: [facility] CC: Dr. Shashank Matos MD; Dr. Ashkan Yarbrough DO [employer] Supervisor: Signed Normal [facility] Absolute neutrophil countOrd ered By: Shashank Matos on 07-01-2024 Neutrophils (Bld) [#/Vol] 4.8 10*3/uL 2.0-7.7 [facility] Anion gap in Serum or Plasma Ordered By: Shashank Matos on 07-01-2024 Anion gap [Moles/Vol] 13 mmol/L 5-15 [facility] BUN/creatinine ratioOrdered By: Shashank Matos on 07-01-2024 Urea nitrogen/Creatinine [Mass ratio] 16.9 mg/mg 10-20 [facility] Basophil percentageOrdered B y: Shashank Matos on 07-01-2024 Basophils/100 WBC (Bld) 1.3 % High 0-1 [facility] Bilirubin, totalOrdered By: Shashank Matos on 07-01-2024 Bilirubin [Mass/Vol] 0.50 mg/dL 0.00-1.30 [facility] CBC W/Diff, Automatedon 06-07 Absolute Lymph 1.97 X10 3/uL Normal 0.83-4.51 [facility] Comment on above: Performed By: #### L 500.4050, L500.4100, L100.0100 #### [facility] [address] [place], [address] Absolute Neut 4.8 X10 3/uL Normal 2.0-7.7 [facility] Comment on above: Performed By: #### L 500.4050, L500.4100, L100.0100 #### [facility] [address] [place], [address] Basophils/100 WBC (Bld) 1.3 % High 0-1 [facility] Comment on above: Performed By: #### L 500.4050, L500.4100, L100.0100 #### [facility] [address] [place], [address] Eosinophils/100 WBC (Bld) 5.3 % High 0-5 [facility] Comment on above: Performed By: #### L 500.4050, L500.4100, L100.0100 #### [facility] [address] [place], [address] Erythrocyte distribution width (RBC) [Ratio] 13.4 % Normal 11.6-14.6 [facility] Comment on above: Performed By: #### L 500.4050, L500.4100, L100.0100 #### [facility] [address] [place], [address] Hematocrit (Bld) [Volume fraction] 42.7 % Normal 37-47 [facility] Comment on above: Performed By: #### L 500.4050, L500.4100, L100.0100 #### [facility] [address] [place], [address] Hemoglobin (Bld) [Mass/Vol] 13.9 g/dL Normal 12.0-15.0 [facility] Comment on above: Performed By: #### L 500.4050, L500.4100, L100.0100 #### [facility] [address] [place], [address] IG% 0.400 Normal 0.0-0.9 [facility] Comment on above: Result Comment: IG% - Immature Granulocytes (promyelocytes, myelocytes and metamyelocytes) > 1% indicates that a LEFT SHIFT is Present. Performed By: #### L 500.4050, L500.4100, L100.0100 #### [facility] [address] [place], [address] Lymphocytes/100 WBC (Bld) 25.3 % Normal 19-41 [facility] Comment on above: Performed By: #### L 500.4050, L500.4100, L100.0100 #### [facility] [address] [place], [address] MCH (RBC) [Entitic mass] 29.0 pg Normal 27.0-32.0 [facility] Comment on above: Performed By: #### L 500.4050, L500.4100, L100.0100 #### [facility] [address] [place], [address] MCHC (RBC) [Mass/Vol] 32.6 g/dL Normal 32-36 [facility] Comment on above: Performed By: #### L 500.4050, L500.4100, L100.0100 #### [facility] [address] [place], [address] MCV (RBC) [Entitic vol] 89.0 fL Normal 81-99 [facility] Comment on above: Performed By: #### L 500.4050, L500.4100, L100.0100 #### [facility] [address] [place], [address] Monocytes/100 WBC (Bld) 5.8 % Normal 0-10 [facility] Comment on above: Performed By: #### L 500.4050, L500.4100, L100.0100 #### [facility] [address] [place], [address] Neutrophils/100 WBC (Bld) 61.9 % Normal 47-70 [facility] Comment on above: Performed By: #### L 500.4050, L500.4100, L100.0100 #### [facility] [address] [place], [address] Nucleated RBC (Bld) [#/Vol] 0 10*3/uL Normal 0-5 [facility] Comment on above: Performed By: #### L 500.4050, L500.4100, L100.0100 #### [facility] [address] [place], [address] Platelet mean volume (Bld) [Entitic vol] 10.6 fL Normal 6.2-12.0 [facility] Comment on above: Performed By: #### L 500.4050, L500.4100, L100.0100 #### [facility] [address] [place], [address] Platelets (Bld) [#/Vol] 291 10*3/uL Normal 150-450 [facility] Comment on above: Performed By: #### L 500.4050, L500.4100, L100.0100 #### [facility] [address] [place], [address] RBC (Bld) [#/Vol] 4.80 10*6/uL Normal 4.2-5.4 [facility] Comment on above: Performed By: #### L 500.4050, L500.4100, L100.0100 #### [facility] [address] [place], [address] RDW SD 43.7 fl Normal 35.1-43.9 [facility] Comment on above: Performed By: #### L 500.4050, L500.4100, L100.0100 #### [facility] [address] [place], [address] WBC (Bld) [#/Vol] 7.8 10*3/uL Normal 4.4-11.0 [facility] Comment on above: Performed By: #### L 500.4050, L500.4100, L100.0100 #### [facility] [address] [place], [address] Calculated very low density lipoprotein (VLDL) cholesterol measurementOrdered By: Shashank Matos on 07-01-2024 VLDL Cholesterol 31 mg/dL 5-40 [facility] Carbon dioxide, total [Moles /volume] in Central venous bloodOrdered By: Shashank Matos on 07-01-2024 CO2 [Moles/Vol] 22.7 mmol/L 21.0-32.0 [facility] Chloride assayOrdered By: Narayan Matos on 07-01-2024 Chloride [Moles/Vol] 107 mmol/L 98-108 [facility] Comprehensive Metabolic Prof ilon 07-01-2024 Albumin [Mass/Vol] 4.1 g/dL Normal 3.4-4.8 [facility] Comment on above: Performed By: #### L 500.4050, L500.4100, L100.0100 #### [facility] [address] [place], [address] Albumin/Globulin [Mass ratio] 1.3 {ratio} Normal 0.9-2.4 [facility] Comment on above: Performed By: #### L 500.4050, L500.4100, L100.0100 #### [facility] [address] [place], [address] ALK PHOS 87 U/L Normal 35-104 [facility] Comment on above: Performed By: #### L 500.4050, L500.4100, L100.0100 #### [facility] [address] [place], [address] ALT [Catalytic activity/Vol] 21 U/L Normal <=34 [facility] Comment on above: Performed By: #### L 500.4050, L500.4100, L100.0100 #### [facility] [address] [place], [address] AST [Catalytic activity/Vol] 41 U/L High <=31 [facility] Comment on above: Performed By: #### L 500.4050, L500.4100, L100.0100 #### [facility] [address] [place], [address] Bilirubin [Mass/Vol] 0.50 mg/dL Normal 0.00-1.30 [facility] Comment on above: Performed By: #### L 500.4050, L500.4100, L100.0100 #### [facility] [address] [place], [address] BUN/CRE 16.9 RATIO Normal 10-20 [facility] Comment on above: Performed By: #### L 500.4050, L500.4100, L100.0100 #### [facility] [address] [place], [address] Calcium [Mass/Vol] 9.8 mg/dL Normal 7.6-11.0 [facility] Comment on above: Performed By: #### L 500.4050, L500.4100, L100.0100 #### [facility] [address] [place], [address] Chloride [Moles/Vol] 107 mmol/L Normal 98-108 [facility] Comment on above: Performed By: #### L 500.4050, L500.4100, L100.0100 #### [facility] [address] [place], [address] CO2 [Moles/Vol] 22.7 mmol/L Normal 21.0-32.0 [facility] Comment on above: Performed By: #### L 500.4050, L500.4100, L100.0100 #### [facility] [address] [place], [address] Creatinine [Mass/Vol] 1.00 mg/dL Normal 0.70-1.20 [facility] Comment on above: Performed By: #### L 500.4050, L500.4100, L100.0100 #### [facility] [address] [place], [address] GAP 13 Normal 5-15 [facility] Comment on above: Performed By: #### L 500.4050, L500.4100, L100.0100 #### [facility] [address] [place], [address] GFR/1.73 sq M.predicted among non-blacks MDRD (S/P/Bld) [Vol rate/Area] 61 mL/min/{1.73_m2} Normal >60 [facility] Comment on above: Result Comment: mL/m in/1.73m2 CKD-EPI Creatinine Equation (2020) Performed By: #### L 500.4050, L500.4100, L100.0100 #### [facility] [address] [place], [address] Globulin (S) [Mass/Vol] 3.2 g/dL Normal 2.2-4.2 [facility] Comment on above: Performed By: #### L 500.4050, L500.4100, L100.0100 #### [facility] [address] [place], [address] Glucose [Mass/Vol] 91 mg/dL Normal 70-99 [facility] Comment on above: Performed By: #### L 500.4050, L500.4100, L100.0100 #### [facility] [address] [place], [address] Potassium [Moles/Vol] 4.4 mmol/L Normal 3.3-5.1 [facility] Comment on above: Performed By: #### L 500.4050, L500.4100, L100.0100 #### [facility] [address] [place], [address] Sodium [Moles/Vol] 142 mmol/L Normal 133-145 [facility] Comment on above: Performed By: #### L 500.4050, L500.4100, L100.0100 #### [facility] [address] [place], [address] T PROT 7.3 g/dL Normal 5.9-8.4 [facility] Comment on above: Performed By: #### L 500.4050, L500.4100, L100.0100 #### [facility] [address] [place], [address] Urea nitrogen [Mass/Vol] 17 mg/dL Normal 4-19 [facility] Comment on above: Performed By: #### L 500.4050, L500.4100, L100.0100 #### [facility] [address] [place], [address] Eosinophil percentageOrdered By: Shashank Matos on 07-01-2024 Eosinophils/100 WBC (Bld) 5.3 % High 0-5 [facility] Erythrocyte distribution wid th ratioOrdered By: Shashank Matos on 07-01-2024 Erythrocyte distribution width (RBC) [Ratio] 13.4 % 11.6-14.6 [facility] Erythrocyte distribution wid th standard deviationOrdered By: Shashank Matos on 07-01-2024 Erythrocyte distribution width (RBC) [Entitic vol] 43.7 fL 35.1-43.9 [facility] GFR/1.73 sq M.predicted evi g non-blacks MDRD (S/P/Bld) [Vol rate/Area]Ordered By: Shashank Matos on 07-01-2024 Estimated GFR (MDRD) Non-Af Amer 61 >60 [facility] Comment on above: mL/min/1.73m2 CKD-EP I Creatinine Equation (2020) Hematocrit Auto (Bld) [Volum e fraction]Ordered By: Shashank Matos on 07-01-2024 Hematocrit (Bld) [Volume fraction] 42.7 % 37-47 [facility] Hemoglobin measurementOrdere d By: Shashank Matos on 07-01-2024 Hemoglobin (Bld) [Mass/Vol] 13.9 g/dL 12.0-15.0 [facility] Immature granulocytes/100 WB C Auto (Bld)Ordered By: Shashank Matos on 07-01-2024 Immature granulocytes/100 WBC (Bld) 0.400 % 0.0-0.9 [facility] Comment on above: IG% - Immature Granu locytes (promyelocytes, myelocytes and metamyelocytes) > 1% indicates that a LEFT SHIFT is Present. LDL calc ser/plasOrdered By: Shashank Matos on 07-01-2024 LDL Cholesterol, Calculated 126 mg/dL [facility] Comment on above: Cjzioamgjs=818-561 m g/dL & Higher Kqgg=819 mg/dL or greater Laboratory - Chemistry and C hemistry - challengeOrdered By: Shashank Matos on 07-01-2024 AST [Catalytic activity/Vol] 41 U/L High <32 [facility] Lipid Profileon 07-01-2024 CHOL:HDL 4.22 Normal [facility] Comment on above: Performed By: #### L 500.4050, L500.4100, L100.0100 #### [facility] [address] [place], [address] Cholesterol [Mass/Vol] 206 mg/dL High <=200 [facility] Comment on above: Result Comment: Chol esterol level, Desirable <200 mg/dL Borderline high cholesterol 200-239 mg/dL High cholesterol >=240 mg/dL Recommendations of the NCEP Adult Treatment Panel for the following risk-cutoff thresholds for the [place] population. Performed By: #### L 500.4050, L500.4100, L100.0100 #### [facility] [address] [place], [address] Cholesterol in HDL [Mass/Vol] 49 mg/dL Normal [facility] Comment on above: Result Comment: [place] on[place] Cholesterol Education Program (NCEP) guidelines: <40 mg/dL: Low HDL-cholesterol (major risk factor for CHD) >= 60 mg/dL: High HDL-cholesterol (negative risk factor for CHD) HDL-cholesterol is affected by a number of factors, e.g. smoking, exercise, hormones, sex and age. Performed By: #### L 500.4050, L500.4100, L100.0100 #### [facility] [address] [place], [address] Cholesterol in LDL [Mass/Vol] 126 mg/dL Normal [facility] Comment on above: Result Comment: Bord kcpjqd=431-414 mg/dL Higher Nvlg=277 mg/dL or greater Performed By: #### L 500.4050, L500.4100, L100.0100 #### [facility] [address] [place], [address] Cholesterol in VLDL [Mass/Vol] 31 mg/dL Normal 5-40 [facility] Comment on above: Performed By: #### L 500.4050, L500.4100, L100.0100 #### [facility] [address] [place], [address] Triglyceride [Mass/Vol] 157 mg/dL Normal [facility] Comment on above: Result Comment: The drugs N-Acetylcysteine and Metamizole may falsely depress this assay. Normal range: <150 mg/dL Borderline High: 150-199 mg/dL High: 200-499 mg/dL Very High: >500 mg/dL Performed By: #### L 500.4050, L500.4100, L100.0100 #### [facility] [address] [place], [address] Lymphocytes Auto (Unsp spec) [#/Vol]Ordered By: Shashank Matos on 07-01-2024 Lymphocytes (Bld) [#/Vol] 1.97 10*3/uL 0.83-4.5 1 [facility] Lymphocytes/100 WBC Auto (Un sp spec)Ordered By: Shashank Matos on 07-01-2024 Lymphocytes/100 WBC (Bld) 25.3 % 19-41 [facility] MCV (mean corpuscular volume ) determinationOrdered By: Shashank Matos on 07-01-2024 MCV (RBC) [Entitic vol] 89.0 fL 81-99 [facility] Mean corpuscular hemoglobin (MCH) determinationOrdered By: Shashank Matos on 07-01-2024 MCH (RBC) [Entitic mass] 29.0 pg 27.0-32.0 [facility] Mean corpuscular hemoglobin concentration (MCHC) determinationOrdered By: Shashank Matos on 07-01-2024 MCHC (RBC) [Mass/Vol] 32.6 g/dL 32-36 [facility] Mean platelet volume determi nationOrdered By: Shashank Matos on 07-01-2024 Platelet mean volume (Bld) [Entitic vol] 10.6 fL 6.2-12.0 [facility] Monocyte percentageOrdered B y: Shashank Matos on 07-01-2024 Monocytes/100 WBC (Bld) 5.8 % 0-10 [facility] Neutrophil percentageOrdered By: Shashank Matos on 07-01-2024 Neutrophils/100 WBC (Bld) 61.9 % 47-70 [facility] Nucleated red blood cell per centageOrdered By: Shashank Matos on 07-01-2024 Nucleated RBC/100 WBC (Bld) [Ratio] 0 % 0-5 [facility] Platelet countOrdered By: Narayan Matos on 07-01-2024 Platelets (Bld) [#/Vol] 291 10*3/uL 150-450 [facility] Potassium (Unsp spec) [Mass/ Vol]Ordered By: Shashank Matos on 07-01-2024 Potassium [Moles/Vol] 4.4 mmol/L 3.3-5.1 [facility] RBC Auto (Bld) [#/Vol]Ordere d By: Shashank Matos on 07-01-2024 RBC (Bld) [#/Vol] 4.80 10*6/uL 4.2-5.4 [facility] Screening total cholesterol/ high density lipoprotein (HDL) cholesterol ratioOrdered By: Shashank Matos on 07-01-2024 Cholesterol.total/Cholest tony in HDL [Mass ratio] 4.22 {ratio} [facility] Serum creatinine measurement (mass/volume)Ordered By: Shashank Matos on 07-01-2024 Creatinine [Mass/Vol] 1.00 mg/dL 0.70-1.20 [facility] Serum globulin measurementOr dered By: Shashank Matos on 07-01-2024 Globulin (S) [Mass/Vol] 3.2 g/dL 2.2-4.2 [facility] Serum glucose measurement (m ass/volume)Ordered By: Shashank Matos on 07-01-2024 Glucose [Mass/Vol] 91 mg/dL 70-99 [facility] Serum or plasma alanine vargas otransferase (ALT) measurementOrdered By: Shashank Matos on 07-01-2024 ALT [Catalytic activity/Vol] 21 U/L <35 [facility] Serum or plasma albumin crystal urement (mass/volume)Ordered By: Shashank Matos on 07-01-2024 Albumin [Mass/Vol] 4.1 g/dL 3.4-4.8 [facility] Serum or plasma albumin/glob ulin mass ratioOrdered By: Shashank Matos on 07-01-2024 Albumin/Globulin [Mass ratio] 1.3 {ratio} 0.9-2.4 [facility] Serum or plasma alkaline jevon sphatase measurementOrdered By: Shashank Matos on 07-01-2024 ALP [Catalytic activity/Vol] 87 U/L 35-104 [facility] Serum or plasma calcium crystal urement (mass/volume)Ordered By: Shashank Matos on 07-01-2024 Calcium [Mass/Vol] 9.8 mg/dL 7.6-11.0 [facility] Serum or plasma cholesterol in HDL measurement (mass/volume)Ordered By: Shashank Matos on 07-01-2024 Cholesterol in HDL [Mass/Vol] 49 mg/dL >40 [facility] Comment on above: National Cholesterol Education Program (NCEP) guidelines:<40 mg/dL: Low HDL-cholesterol (major risk factor for CHD)>= 60 mg/dL: High HDL-cholesterol (negative risk factor for CHD)HDL-cholesterol is affected by a number of factors, e.g. smoking, exercise, hormones, sex and age. Serum or plasma cholesterol measurement (mass/volume)Ordered By: Shashank Matos on 07-01-2024 Cholesterol [Mass/Vol] 206 mg/dL High <201 [facility] Comment on above: Cholesterol level, D esirable <200 mg/dLBorderline high cholesterol 200-239 mg/dLHigh cholesterol >=240 mg/dLRecommendations of the NCEP Adult Treatment Panel for the following risk-cutoff thresholds for the [place] population. Serum or plasma urea nitroge n measurement (mass/volume)Ordered By: Shashank Matos on 07-01-2024 Urea nitrogen [Mass/Vol] 17 mg/dL 4-19 [facility] Sodium levelOrdered By: Shashank Matos on 07-01-2024 Sodium [Moles/Vol] 142 mmol/L 133-145 [facility] Total proteinOrdered By: Joselin Matos on 07-01-2024 Protein [Mass/Vol] 7.3 g/dL 5.9-8.4 [facility] Triglycerides measurementOrd ered By: Shashank Matos on 07-01-2024 Triglyceride [Mass/Vol] 157 mg/dL <199 [facility] Comment on above: The drugs N-Acetylcy steine and Metamizole may falsely depress this assay. Normal range: <150 mg/dLBorderline High: 150-199 mg/dLHigh: 200-499 mg/dLVery High: >500 mg/dL White blood cell (WBC) count Ordered By: Shashank Matos on 07-01-2024 WBC (Bld) [#/Vol] 7.8 10*3/uL 4.4-11.0 [facility] Comprehensive Metabolic Prof ilon 01-03-2024 Albumin [Mass/Vol] 3.8 g/dL Normal 3.2-5.0 [facility] Comment on above: Performed By: #### L 500.4100, L500.4050 #### [facility] [address] [place], [address] Albumin/Globulin [Mass ratio] 1.0 {ratio} Normal 0.9-2.4 [facility] Comment on above: Performed By: #### L 500.4100, L500.4050 #### [facility] [address] [place], [address] ALK P 78 U/L Normal 45-117 [facility] Comment on above: Performed By: #### L 500.4100, L500.4050 #### [facility] [address] [place], [address] ALT [Catalytic activity/Vol] 40 U/L Normal 13-56 [facility] Comment on above: Performed By: #### L 500.4100, L500.4050 #### [facility] [address] [place], [address] AST [Catalytic activity/Vol] 47 U/L High 15-37 [facility] [facility] Comment on above: Performed By: #### L 500.4100, L500.4050 #### [facility] [address] [place], [address] Bilirubin [Mass/Vol] 0.70 mg/dL Normal 0.20-1.00 [facility] Comment on above: Result Comment: For patients on eltrombopag therapy, use of Dimension [place] TBIL is not recommended. Performed By: #### L 500.4100, L500.4050 #### [facility] [address] [place], [address] BUN/CRE 18.5 RATIO Normal 10-20 [facility] Comment on above: Performed By: #### L 500.4100, L500.4050 #### [facility] [address] [place], [address] CA,Total 9.9 mg/dL Normal 8.5-10.1 [facility] Comment on above: Performed By: #### L 500.4100, L500.4050 #### [facility] [address] [place], [address] Chloride [Moles/Vol] 109 mmol/L High 98-107 [facility] Comment on above: Performed By: #### L 500.4100, L500.4050 #### [facility] [address] [place], [address] CO2 [Moles/Vol] 28.0 mmol/L Normal 21.0-32.0 [facility] Comment on above: Performed By: #### L 500.4100, L500.4050 #### [facility] [address] [place], [address] Creatinine [Mass/Vol] 0.98 mg/dL Normal 0.55-1.02 [facility] Comment on above: Result Comment: The validity of the calculated GFR GFRAA in patients over 70 years has not been determined. Clinical correlation is essential. Performed By: #### L 500.4100, L500.4050 #### [facility] [address] [place], [address] EST GFR - AA 73 mL/min Normal >60 [facility] Comment on above: Result Comment: Afri can [place] GFR Calc Performed By: #### L 500.4100, L500.4050 #### [facility] [address] [place], [address] GAP 4 Low 5-15 [facility] Comment on above: Performed By: #### L 500.4100, L500.4050 #### [facility] [address] [place], [address] GFR/1.73 sq M.predicted among non-blacks MDRD (S/P/Bld) [Vol rate/Area] 60 mL/min/{1.73_m2} Normal >60 [facility] Comment on above: Result Comment: Non- GFR Calc Performed By: #### L 500.4100, L500.4050 #### [facility] [address] [place], [address] Globulin (S) [Mass/Vol] 3.9 g/dL Normal 2.2-4.2 [facility] Comment on above: Performed By: #### L 500.4100, L500.4050 #### [facility] [address] [place], [address] Glucose [Mass/Vol] 90 mg/dL Normal 74-106 [facility] Comment on above: Performed By: #### L 500.4100, L500.4050 #### [facility] [address] [place], [address] Potassium [Moles/Vol] 4.2 mmol/L Normal 3.5-5.1 [facility] Comment on above: Performed By: #### L 500.4100, L500.4050 #### [facility] [address] [place], [address] Sodium [Moles/Vol] 141 mmol/L Normal 136-145 [facility] Comment on above: Performed By: #### L 500.4100, L500.4050 #### [facility] [address] [place], [address] T PROT 7.7 g/dL Normal 6.4-8.2 [facility] Comment on above: Performed By: #### L 500.4100, L500.4050 #### [facility] [address] [place], [address] Urea nitrogen [Mass/Vol] 18 mg/dL Normal 7-18 [facility] Comment on above: Performed By: #### L 500.4100, L500.4050 #### [facility] [address] [place], [address] Lipid Profileon 01-03-2024 Cholesterol [Mass/Vol] 225 mg/dL High 200 [facility] Comment on above: Result Comment: <200 mg/dL Desirable 200-240 mg/dL Borderline >240 mg/dL High Risk Performed By: #### L 500.4100, L500.4050 #### [facility] [address] [place], [address] Cholesterol in HDL [Mass/Vol] 54 mg/dL Normal [facility] Comment on above: Result Comment: The drugs N-Acetylcysteine and Metamizole may falsely depress this assay. Reference Range HDL <40 mg/dL Low HDL Cholesterol HDL >or= 60 mg/dL High HDL Cholesterol Performed By: #### L 500.4100, L500.4050 #### [facility] [address] [place], [address] Cholesterol in LDL [Mass/Vol] 136 mg/dL High 0-130 [facility] Comment on above: Performed By: #### L 500.4100, L500.4050 #### [facility] [address] [place], [address] Cholesterol in VLDL [Mass/Vol] 35 mg/dL Normal 5-40 [facility] Comment on above: Performed By: #### L 500.4100, L500.4050 #### [facility] [address] [place], [address] Triglyceride [Mass/Vol] 177 mg/dL Normal [facility] Comment on above: Result Comment: The drugs N-Acetylcysteine and Metamizole may falsely depress this assay. Serum Triglycerides Reference Interval Normal <150 mg/dL Borderline high 150 - 199 mg/dL High 200 - 499 mg/dL Very High > or = 500 mg/dL Performed By: #### L 500.4100, L500.4050 #### [facility] [address] [place], [address] Dexa Bone Density Studyon Dexa Bone Density Study [facility] Imaging Services [address] [place] [address] Dexa Bone Density Study MR#: [id number] Acct: [id number] Name: MARIOLA KINSEY ZACKARY Rep #: [id number] : 1955 F 68 From: Sergio schuler MD PCP: Dr. Shashank Matos MD Status: [facility] Study: Dexa Bone Density Study Date of Exam: 12/27/23 Exam# [id number] Ordering Dr: Janice Sun [employer] -C [id number] STUDY: DUAL ENERGY X-RAY ABSORPTIOMETRY / DXA REASON FOR EXAM: Female, 68 years old. V76.12ScreeningBONE DENSITY REASON FOR EXAM TECHNIQUE: Bone Mineral Density (BMD) measurements of lumbar spine and bilateral hips were obtained. COMPARISON: Comparison is made with prior study January 02, 2018. FINDINGS: Lumbar Spine (L1-L4): g/cm2 (1.063) / T-score (0.1) / Z-score (2.2) Findings are suggestive of normal bone density with a low fracture risk. Left Femur Total: g/cm2 (0.998) / T-score (0.5) / Z-score (1.9) Left Femoral Neck: g/cm2 (0.671) / T-score (-1.6) / Z-score (0.1) Right Femur Total: g/cm2 (0.973) / T-score (0.3) / Z-score (1.7) Right Femoral Neck: g/cm2 (0.691) / T-score (-1.4) / Z-score (0.3) The T-Scores on the most recent prior examination were: Lumbar Spine (L1-L4): There has been worsening of bone density since the previous examination. Left Femur Total: which represents a worsening of 4.4%. Right Femur Total: which represents an improvement of 1.2%. BD/Dexa Bone Density Study IMPRESSION: The patient is considered osteopenic as outlined below according to World Denny Organization (WHO) criteria with a moderate fracture risk. There has been worsening of bone density since the previous examination. Reference Information: The T-score is the number of standard deviations above or below the standard which is normal for young adults at their peak bone mineral density. The World Health Organization (WHO) interprets the T-scores as follows: Above -1 Normal bone density Between -1 and -2.5 Osteopenia Equal to / or below -2.5 Osteoporosis As a practical clinical guideline, osteopenia may be graded as follows: Mild -1 through -1.5 Moderate -1.6 through -2.0 Severe -2.1 through -2.4 The Z-score is the number of standard deviations above or below age-matched controls. A Z-score of less than -1.5 would be considered abnormal. References: 1. NIH Osteoporosis and Related Bone Diseases www osteo.org 2. International Society for Clinical Densitometry www iscd.org 3. National Osteoporosis Foundation www nof.org Electronically Signed: Sergio Cazares MD at 9:30 EDT , CC: Dr. Shashank Matos MD; Janice Sun [employer] Supervisor: Signed Normal [facility] SCRN MAMM (CAD)W/NIMA BILATo n 12-27-2023 SCRN MAMM (CAD)W/NIMA BILAT [facility] Imaging Services [address] [place], [place] [address] SCRN MAMM (CAD)W/NIMA BILAT MR#: [id number] Acct: [id number] Name: MARIOLA KINSEY Rep #: [id number] : 1955 F 68 From: Sergoi schuler MD PCP: Dr. Shashank Matos MD Status: REG CLI Study: SCRN MAMM (CAD)W/NIMA BILAT Date of Exam: 12/08 Exam# [id number] Ordering Dr: Janice Sun NP -Johanne -[id number] MAMMOGRAPHY - BILATERAL SCREENING REASON FOR EXAM: Female, 68 years old. Routine annual screening examination. PERTINENT HISTORY: Non-contributory. TECHNIQUE: Digital bilateral breast nima (3D mammographic acquisition) in the CC and MLO projections. 2-D mediolateral oblique (MLO) and craniocaudad (CC) views of both breasts were obtained. CAD: Full Field Digital Mammography with Computer Added Detection was performed. COMPARISON: Comparison is made with prior study January 02, 2018 and February 19, 2015. FINDINGS: Breast Composition: There are scattered areas of fibroglandular density. There are no dominant masses or suspicious calcifications. There is a 8.6 mm x 7 mm fat-containing nodule with minimal peripheral calcification in the anterior upper medial aspect of the right breast. There is also evidence of a 9.2 mm x 9.4 mm well-defined fat-containing nodule with peripheral calcification in the anterior upper lateral aspect of the right breast. Stable scattered bilateral microcalcifications . No other significant abnormalities are identified. BI/SCRN MAMM (CAD)W/NIMA BILAT IMPRESSION: Stable bilateral screening mammogram. Yearly follow-up mammogram recommended. (A) ASSESSMENT CATEGORY: BIRADS Category 2: Benign. A letter regarding these results will be sent to the patient by the facility within 30 days. Approximately 10% of breast cancers are not detected by mammography. A normal mammogram should not delay biopsy of a clinically suspicious abnormality. [id number] Electronically Signed: Sergio Cazares MD at 9:08 EDT , CC: Dr. Shashank Matos MD; Janice RALPH [employer] Supervisor: Signed Normal [facility] Basophil percentageOrdered B y: Shashank Matos on 06-26-2023 Chloride [Moles/Vol] 109 mmol/L 98-107 [facility] Cholesterol [Mass/Vol] 201 mg/dL <200 [facility] Comment on above: <200 mg/dL Desirable 200-240 mg/dL Borderline >240 mg/dL High Risk Glucose [Mass/Vol] 98 mg/dL 74-106 [facility] Potassium [Moles/Vol] 4.5 mmol/L 3.5-5.1 [facility] Sodium [Moles/Vol] 142 mmol/L 136-145 [facility] Triglyceride [Mass/Vol] 123 mg/dL <199 [facility] Comment on above: The drugs N-Acetylcy steine and Metamizole may falsely depress this assay.Serum Triglycerides Reference Interval Normal <150 mg/dL Borderline high 150 - 199 mg/dL High 200 - 499 mg/dL Very High > or = 500 mg/dL Laboratory - Chemistry and C hemistry - challengeOrdered By: Shashank Matos on 06-26-2023 Cholesterol in HDL [Mass/Vol] 49 mg/dL >40 [facility] Comment on above: The drugs N-Acetylcy steine and Metamizole may falsely depress this assay. Reference Range HDL <40 mg/dL Low HDL Cholesterol HDL >or= 60 mg/dL High HDL Cholesterol Cholesterol in LDL [Mass/Vol] 127 mg/dL 0-130 [facility] CO2 [Moles/Vol] 27.0 mmol/L 21.0-32.0 [facility] Urea nitrogen/Creatinine [Mass ratio] 20.4 mg/mg 10-20 [facility] No Panel InformationOrdered By: Shashank Matos on 06-26-2023 Estimated GFR (MDRD) Amer 77 mL/min >60 [facility] Comment on above: GFR Calc Estimated GFR (MDRD) Non-Af Amer 63 mL/min >60 [facility] Comment on above: Non- GFR Calc VLDL Cholesterol 25 mg/dL 5-40 [facility] Serum or plasma calcium crystal urement (mass/volume)Ordered By: Shashank Matos on 06-26-2023 Calcium [Mass/Vol] 9.8 mg/dL 8.5-10.1 [facility] Serum or plasma creatinine m easurement (mass/volume)Ordered By: Shashank Matos on 06-26-2023 Creatinine [Mass/Vol] 0.93 mg/dL 0.55-1.02 [facility] Comment on above: The validity of the calculated GFR & GFRAA in patients over 70 years has not been determined. Clinical correlation is essential. Serum or plasma urea nitroge n measurement (mass/volume)Ordered By: Shashank Matos on 06-26-2023 Urea nitrogen [Mass/Vol] 19 mg/dL 7-18 [facility] Thin prep Papanicolaou smear with manual screeningOrdered By: Shashank Matos on 06-26-2023 Thin prep Papanicolaou smear with manual screening 6 5-15 [facility] Basophil percentageOrdered B y: Shashank Matos on 12-26-2022 Chloride [Moles/Vol] 111 mmol/L 98-107 [facility] Cholesterol [Mass/Vol] 219 mg/dL <200 [facility] Comment on above: <200 mg/dL Desirable 200-240 mg/dL Borderline >240 mg/dL High Risk Glucose [Mass/Vol] 90 mg/dL 74-106 [facility] Potassium [Moles/Vol] 4.4 mmol/L 3.5-5.1 [facility] Sodium [Moles/Vol] 141 mmol/L 136-145 [facility] Triglyceride [Mass/Vol] 168 mg/dL <199 [facility] Comment on above: The drugs N-Acetylcy steine and Metamizole may falsely depress this assay.Serum Triglycerides Reference Interval Normal <150 mg/dL Borderline high 150 - 199 mg/dL High 200 - 499 mg/dL Very High > or = 500 mg/dL Laboratory - Chemistry and C hemistry - challengeOrdered By: Shashank Matos on 12-26-2022 CO2 [Moles/Vol] 27.0 mmol/L 21.0-32.0 [facility] Urea nitrogen/Creatinine [Mass ratio] 15.8 mg/mg 10- [facility] No Panel InformationOrdered By: Shashank Matos on 12-26-2022 Estimated GFR (MDRD) Amer 75 mL/min >60 [facility] Comment on above: GFR Calc Estimated GFR (MDRD) Non-Af Amer 62 mL/min >60 [facility] Comment on above: Non- GFR Calc Serum or plasma calcium crystal urement (mass/volume)Ordered By: Shashank Matos on 12-26-2022 Calcium [Mass/Vol] 9.2 mg/dL 8.5-10.1 [facility] Serum or plasma cholesterol in HDL measurement (mass/volume)Ordered By: Shashank Matos on 12-26-2022 Cholesterol in HDL [Mass/Vol] 43 mg/dL >40 [facility] Comment on above: The drugs N-Acetylcy steine and Metamizole may falsely depress this assay. Reference Range HDL <40 mg/dL Low HDL Cholesterol HDL >or= 60 mg/dL High HDL Cholesterol Serum or plasma cholesterol in VLDL measurement (mass/volume)Ordered By: Shashank Matos on 12-26-2022 Cholesterol in VLDL [Mass/Vol] 34 mg/dL 5-40 [facility] Serum or plasma creatinine m easurement (mass/volume)Ordered By: Shashank Matos on 12-26-2022 Creatinine [Mass/Vol] 0.95 mg/dL 0.55-1.02 [facility] Comment on above: The validity of the calculated GFR & GFRAA in patients over 70 years has not been determined. Clinical correlation is essential. Serum or plasma low density lipoprotein (LDL) cholesterol measurement (mass/volume)Ordered By: Shashank Matos on 12-26-2022 Cholesterol in LDL [Mass/Vol] 142 mg/dL 0-130 [facility] Serum or plasma urea nitroge n measurement (mass/volume)Ordered By: Shashank Matos on 12-26-2022 Urea nitrogen [Mass/Vol] 15 mg/dL 7-18 [facility] Thin prep Papanicolaou smear with manual screeningOrdered By: Shashank Matos on 12-26-2022 Thin prep Papanicolaou smear with manual screening 3 5-15 [facility] Basophil percentageOrdered B y: Dr. Matos on 06-22-2022 Bilirubin [Mass/Vol] 0.60 mg/dL 0.20-1.00 [facility] Comment on above: For patients on eltr ombopag therapy, use of Dimension [place] TBIL is not recommended. Chloride [Moles/Vol] 110 mmol/L 98-107 [facility] Cholesterol [Mass/Vol] 226 mg/dL <200 [facility] Comment on above: <200 mg/dL Desirable 200-240 mg/dL Borderline >240 mg/dL High Risk Glucose [Mass/Vol] 89 mg/dL 74-106 [facility] Potassium [Moles/Vol] 4.1 mmol/L 3.5-5.1 [facility] Protein [Mass/Vol] 7.6 g/dL 6.4-8.2 [facility] Sodium [Moles/Vol] 142 mmol/L 136-145 [facility] Triglyceride [Mass/Vol] 197 mg/dL <199 [facility] Comment on above: The drugs N-Acetylcy steine and Metamizole may falsely depress this assay.Serum Triglycerides Reference Interval Normal <150 mg/dL Borderline high 150 - 199 mg/dL High 200 - 499 mg/dL Very High > or = 500 mg/dL Laboratory - Chemistry and C hemistry - challengeOrdered By: Dr. Matos on 06-22-2022 ALP [Catalytic activity/Vol] 91 U/L 45-117 [facility] ALT [Catalytic activity/Vol] 36 U/L 13-56 [facility] CO2 [Moles/Vol] 25.0 mmol/L 21.0-32.0 [facility] Globulin (S) [Mass/Vol] 3.6 g/dL 2.2-4.2 [facility] Urea nitrogen/Creatinine [Mass ratio] 23.4 mg/mg 10-20 [facility] No Panel InformationOrdered By: Dr. Matos on 06-22-2022 Estimated GFR (MDRD) Amer 76 mL/min >60 [facility] Comment on above: GFR Calc Estimated GFR (MDRD) Non-Af Amer 63 mL/min >60 [facility] Comment on above: Non- GFR Calc Serum or plasma albumin crystal urement (mass/volume)Ordered By: Dr. Matos on 06-22-2022 Albumin [Mass/Vol] 4.0 g/dL 3.2-5.0 [facility] Serum or plasma albumin/glob ulin mass ratioOrdered By: Dr. Matos on 06-22-2022 Albumin/Globulin [Mass ratio] 1.1 {ratio} 0.9-2.4 [facility] Serum or plasma calcium crystal urement (mass/volume)Ordered By: Dr. Matos on 06-22-2022 Calcium [Mass/Vol] 9.4 mg/dL 8.5-10.1 [facility] Serum or plasma cholesterol in HDL measurement (mass/volume)Ordered By: Dr. Matos on 06-22-2022 Cholesterol in HDL [Mass/Vol] 49 mg/dL >40 [facility] Comment on above: The drugs N-Acetylcy steine and Metamizole may falsely depress this assay. Reference Range HDL <40 mg/dL Low HDL Cholesterol HDL >or= 60 mg/dL High HDL Cholesterol Serum or plasma cholesterol in VLDL measurement (mass/volume)Ordered By: Dr. Matos on 06-22-2022 Cholesterol in VLDL [Mass/Vol] 39 mg/dL 5-40 [facility] Serum or plasma creatinine m easurement (mass/volume)Ordered By: Dr. Matos on 06-22-2022 Creatinine [Mass/Vol] 0.94 mg/dL 0.55-1.02 [facility] Comment on above: The validity of the calculated GFR & GFRAA in patients over 70 years has not been determined. Clinical correlation is essential. Serum or plasma low density lipoprotein (LDL) cholesterol measurement (mass/volume)Ordered By: Dr. Matos on 06-22-2022 Cholesterol in LDL [Mass/Vol] 138 mg/dL 0-130 [facility] Serum or plasma urea nitroge n measurement (mass/volume)Ordered By: Dr. Matos on 06-22-2022 Urea nitrogen [Mass/Vol] 22 mg/dL 7-18 [facility] Thin prep Papanicolaou smear with manual screeningOrdered By: Dr. Matos on 06-22-2022 Thin prep Papanicolaou smear with manual screening 42 U/L 15-37 [facility] Thin prep Papanicolaou smear with manual screening 7 5-15 [facility] Encounters Encounter Date Encounter Type Care Provider Facility Start: 08-15-2024 ambulatory Shashank Matos Facility:[facility] Start: 08-10-2024 ambulatory Kimberli Pro [facility] Start: 08-09-2024 ambulatory Shashank Matos [facility] Start: 08-09-2024 End: 08-10-2024 Evaluation and management of inpatient Shashank Matos Facility:[facility] Start: 07-01-2024 End: 07-01-[address] Shashank Matos MD Work Phone: [facility] Work Phone: Start: 07-01-2024 End: 07-01-[address] Shashank Matos MD -Laboratory, [facility] Start: 07-01-2024 End: 07-01-2024 ambulatory Shashank Matos Facility:[facility] Start: 01-03-2024 End: 01-03-2024 ambulatory Shashank Matos Facility:[facility] Start: 12-27-2023 End: 12-27-2023 ambulatory Janice RALPH Facility:[facility] Start: 06-26-2023 End: 06-26-2023 ambulatory [facility] Work Phone: Start: 06-26-2023 End: 06-26-2023 Patient encounter procedure [facility] Start: 12-26-2022 End: 12-26-2022 ambulatory [facility] Work Phone: Start: 12-26-2022 End: 12-26-2022 Patient encounter procedure [facility] Start: 06-22-2022 End: 06-22-2022 ambulatory [facility] Work Phone: Start: 06-22-2022 End: 06-22-2022 Patient encounter procedure [facility] Payers Date Payer Category Payer Medicare [id number] 2023 Self-pay [id number] 2023 Unknown [id number] 2012 Unknown ANTHEM [id number] Unknown [id number] 2.16.8 [id number] Unknown [id number] 2.16.8 [id number] Unknown [id number] 2.16.8 [id number] Unknown [id number] 2.16.8 [id number] Unknown [id number] 2.16.8 [id number] Unknown [id number] 2.16.8 [id number] Unknown [id number] 2.16.8 [id number] Unknown [id number] 2.16.8 [id number] Unknown [id number] 2.16.8 [id number] Social History Date Type Detail Facility [facility] Start: 02-16-2020 Non-smoker [facility] Start: 1955 Sex Assigned At Female [facility] Start: 02-16-[facility] Start: 07-06-2024 Sex Female (finding) [facility] Medical Equipment Procedure Code Equipment Code Equipment Origin al Text Equipment Identifier Dates Asymmetric Patella FDA Start: 03-02-2020 CEMENT,BONE PATI H 1/2 BATCH FDA Start: 03-02-2020 Cruciate Retaini ng Femoral FDA Start: 03-02-2020 Tibial Bearing Insert FDA Start: 03-02-2020 Tibial Component FDA Start: 03-02-2020 Asymmetric Patella FDA Start: 03-02-2020 CEMENT,BONE PATI H 1/2 BATCH FDA Start: 03-02-2020 Cruciate Retaini ng Femoral FDA Start: 03-02-2020 Tibial Bearing Insert FDA Start: 03-02-2020 Tibial Component FDA Start: 03-02-2020 Asymmetric Patella FDA Start: 03-02-2020 CEMENT,BONE PATI H 1/2 BATCH FDA Start: 03-02-2020 Cruciate Retaini ng Femoral FDA Start: 03-02-2020 Tibial Bearing Insert FDA Start: 03-02-2020 Tibial Component FDA Start: 03-02-2020 Asymmetric Patella FDA Start: 03-02-2020 CEMENT,BONE PATI H 1/2 BATCH FDA Start: 03-02-2020 Cruciate Retaini ng Femoral FDA Start: 03-02-2020 Tibial Bearing Insert FDA Start: 03-02-2020 Tibial Component FDA Start: 03-02-2020 Discharge summary note 08-10-2024 Note Date & Type Note Facility 08-10-2024 Note [facility] Medical Records Department [address] [place] [address] Discharge Summary 08/10/24 1258 MR#: [id number] Acct: [id number] Name: MARIOLA KINSEY Rep #: [id number] : 1955 68 From: [place] MD PCP: Dr. Shashank Matos MD Status:DIS [id number] Providers Date of Admission: 08/09/24 Date of Discharge: 08/10/24 Primary Care Physician: Dr. Shashank Matos MD Consultations 08/09/24 16:46 Consult: Tele-Neurology Routine Consulting Provider: [facility] Reason for Consult: Acute Ischemic Stroke/TIA EMERGENT Consult: No MD Notified: Yes Date Notified: 08/09/24 Time Notified: 16:08 Method of Notification: [facility] Staff Notify [facility] of Tele-Neurology Consult: Yes Reason For Visit: CRAO Diagnosis Discharge Diagnosis (1) Central retinal artery occlusion: Status: Acute Code(s): H34.10 - Central retinal artery occlusion, unspecified eye Medications at Discharge Home Medications aspirin 81 mg tablet,delayed release 81 mg PO DAILY 02/16/20 multivitamin with minerals 1 ea PO DAILY 02/16/20 naproxen sodium 220 mg capsule 660 mg PO BID 02/16/20 ascorbic acid (vitamin C) 500 mg tablet 500 mg PO DAILY 08/09/24 calcium carbonate 520 mg PO DAILY 08/09/24 cholecalciferol (vitamin D3) 125 mcg (5,000 unit) tablet (Vitamin D3) 125 mcg PO DAILY 08/09/24 losartan 100 mg tablet 100 mg PO DAILY 08/09/24 rosuvastatin 20 mg tablet 20 mg PO DAILY 08/09/24 Hospital Course Operations None Procedures 2-D Echocardiogram Summary of Care Provided Minutes Spent on Discharge: 45 Hospital Course: Patient is a 68-year-old female with past medical history as outlined who was admitted to the ED on 08/09/2024 with complaint of loss of vision in her left eye. She woke up around 4 AM on the day of presentation and noticed she could not see out of her left eye. She had been seen by ophthalmology in the outpatient setting and there was concern for central retinal artery occlusion so she was brought into the ED to rule out a stroke. ESR and CRP were not elevated. CT of the brain showed no acute intracranial pathology and CT of the head and neck were negative for any major vessel occlusion. She had MRI of the brain which showed no evidence of stroke. Neurology reviewed patient and recommended continuing aspirin and for her to be discharged on a 30-day event monitor to look out for any arrhythmia. 2D echo done showed EF of 65% with stage I diastolic dysfunction and normal left ventricular systolic function with mild mitral annular calcification. Patient was discharged home on 08/10/2024. She is to follow-up with her primary care doctor and was referred to neurology on outpatient basis also. She was discharged with a 30-day event monitor. Patient seen and examined prior to discharge. She had no active complaints. She still has a loss of vision in her left eye. Review of systems otherwise negative. Labs and vitals reviewed. Home medication reviewed and reconciled. Physical Exam Const alert, oriented x3 and no apparent distress General Appearance: cooperative, comfortable and well kempt Orientation / Consciousness: awake Exam Limitations: no limitations HEENT normocephalic, head/scalp atraumatic, hearing grossly normal bilaterally, moist oral mucous membranes and oropharynx normal Mouth: oral and palatal mucosa normal and dry mucous membranes Eyes Eyes Narrative: loss of vision in left eye. Neck no lymphadenopathy, supple and no JVD Resp normal respiratory effort, no retractions, no use of accessory muscles and clear to auscultation bilaterally Cardio regular rate, regular rhythm, S1 normal heart sound, S2 normal heart sound and no murmurs GI normal to inspection, nondistended, normoactive bowel sounds, soft to palpation, non-tender and non- distended Extremity normal to inspection, full ROM and no clubbing, cyanosis or edema Skin no rashes or lesions noted Neuro oriented x3, CN's II-XII intact bilaterally, moves all extremities and no focal motor deficits Sensorium / Orientation: awake and alert Motor Exam: strength 5/5 throughout Psych affect normal Weight / BMI Weight Weight: 198 lb 13.711 oz Body Mass Index (BMI) 35.2 ABG / Lab / Microbiology Data 08/10/24 06:17 08/10/24 06:17 Laboratory: Laboratory Results - last 24 hr 08/10/24 06:17: WBC 7.0, RBC 5.03, Hgb 14.7, Hct 43.5, MCV 86.5, MCH 29.2, MCHC 33.8, RDW Std Deviation 41.1, RDW Coeff of Evans 13.3, Plt Count 277, MPV 10.5, Immature Gran % (Auto) 0.300, Neut % (Auto) 50.7, Lymph % (Auto) 35.0, [place] % (Auto) 6.9, Eos % (Auto) 6.2 H, Baso % (Auto) 0.9, Absolute Neuts (auto) 3.5, Absolute Lymphs (auto) 2.44, Nucleated RBC % 0, Sodium 141, Potassium 4.3, Chloride 108, Carbon Dioxide 23.6, Anion Gap 9, BUN 15, Creatinine 0.91, (more content not included)... [facility] Evaluation note Note Date & Type Note Facility Evaluation note No assessment information availa ble [facility] Work Phone: Reason for referral (narrative) Note Date & Type Note Facility Reason for referral (narrative) No reason for referral information available [facility] Work Phone: Advance Directives No Advanced Directives Records Found Advance Directive Response Recorded Date/ Time Living Will No February 15 10:09am Power of [employer] No February 16, 2020 10:09am Summary Purpose Family History No Family History Records Found Additional Source Comments Care Teams (unrecognized sec tion and content) Team Status: Active Member Role Status Dates Dr. Shashank Matos MD Family Provider Active Dr. Shashank Matos MD Primary Care Provider Active Team Status: Inactive Member Role Status Dates Dr. Shashank Matos MD Primary Care Provi ary, Attending Provider, Referring Provider Active Team Status: Inactive Member Role Status Dates Dr. Shashank Matos MD Primary Care Provider, Attending Provider Active Team Status: Inactive Member Role Status Dates Dr. Shashank Matos MD Primary Care Provider Active Start: July 01, 2024 End: July 01, 2024 Dr. Shashank Matos MD Attending Provider Active Start: July 01, 2024 End: July 01, 2024 Dr. Shashank Matos MD Referring Provider Active Start: July 01, 2024 End: July 01, 2024 Goals (unrecognized section and content) Goals may be documented in a n alternate sectionGoals may be documented in an alternate sectionGoals may be documented in an alternate sectionGoals may be documented in an alternate section INFORMATION SOURCE (unrecogn ized section and content) DATE CREATED AUTHOR 09/24/2024 [facility] FOR RECORDS PERTAINING TO PATIENTS WHO ARE OR HAVE BEEN ENROLLED IN A CHEMICAL DEPENDENCY/SUBSTANCEABUSE PROGRAM, SOME INFORMATION MAY BE OMITTED. This clinical summary was aggregated from multiple sources. Caution should be exercised in using it in the provision of clinical care. This summary normalizes information from multiple sources, and as a consequence, information in this document may materially change the coding, format and clinical context of patient data. In addition, data may be omitted in some cases. CLINICAL DECISIONS SHOULD BE BASED ON THE PRIMARY CLINICAL RECORDS. [facility]. provides no warranty or guarantee of the accuracy or completeness of information in this document.
[2024-11-20 13:15] LABS: Creatinine, Urine (random) 279.00 mg/dL (28.00-217.00); Microalbumin,Random Urine 28.1 mg/L (<20 mg/L)
[2024-11-20 13:23] LABS: AST(SGOT) 48 U/L (<=31); Alanine Aminotransfer ALT/SGPT 26 U/L (<=34); Albumin, Serum 3.8 g/dL (3.4-4.8); Alkaline Phosphatase 70 U/L (35-104); Anion Gap 12 (5-15); BUN 18 mg/dL (4-19); BUN/Creat Ratio 17.7 RATIO (10-20); Calcium,Total 9.7 mg/dL (7.6-11.0); Carbon Dioxide 22.6 mmol/L (21.0-32.0); Chloride 108 mmol/L (98-108); Cholesterol 194 mg/dL (<=200); Globulin 2.7 g/dL (2.2-4.2); Glucose 93 mg/dL (70-99); Low Density Lipoprotein Calc. 113 mg/dL; Potassium 3.9 mmol/L (3.3-5.1); Triglycerides 172 mg/dL; Very Low Density Lipoprotein 34 mg/dL (5-40); cholesterol:hdl ratio screen 4.15
== END | disposition home or self-care (01) ==
LOC: MFPLAB 09:04
PROVIDERS: PCP Family Medicine; Visit Provider Family Medicine
DX: I10 Essential (primary) hypertension (principal)
CPT/HCPCS: 36415; 80053; 80061; 82043; 82570